=== PATIENT | male | born 1970 | race Caucasian/White ===

== ENCOUNTER 2018-10-17 22:21 | Emergency (ER) | payer BC, OTHER ==
[~2018-10-17] VITALS: Ht 172.7 cm; Wt 115.2 kg
[~2018-10-17 22:21] MED LIST: LEVOTHYROXINE PO; PRED20TA PO
[2018-10-17 22:25] VITALS: BP_SYST 149
--- NOTE | 2018-10-17 22:32 | NUR ---
Patient triaged and placed in waiting room. VSS and patient appears in no acute distress at this time. Accompanied by visitor, awaiting available bed, and MD notified of need for MSE.
[2018-10-17 23:05] LABS: BASOPHILS # (AUTO) 0.1 K/uL (0.0-0.2); BASOPHILS % (AUTO) 0.5 % (0.0-2.0); EOSINOPHILS # (AUTO) 2.2 K/uL (0.0-0.4); EOSINOPHILS % (AUTO) 18.1 % (0.0-4.0); LYMPHOCYTES # (AUTO) 2.9 K/uL (1.0-5.5); MEAN CORPUSCULAR HEMOGLOBIN 30 pg (27-31); MEAN CORPUSCULAR HGB CONC 33 % (32-36); MEAN CORPUSCULAR VOLUME 90 fL (79.0-98.0); MONOCYTES # (AUTO) 0.7 K/uL (0.0-1.0); MONOCYTES % (AUTO) 5.7 % (1.7-9.3); NEUTROPHILS # (AUTO) 6.2 K/uL (1.8-7.7); NEUTROPHILS % (AUTO) 51.7 % (40.0-70.0); PLATELET COUNT (AUTO) 205 K/uL (130-430); RED BLOOD CELL COUNT(AUTO) 5.32 MIL/uL (4.2-6.2); RED CELL DISTRIBUTION WIDTH 15.8 % (9.0-15.0); WHITE BLOOD COUNT (AUTO) 11.9 K/uL (4.8-10.8)
[2018-10-17 23:19] LABS: CALCIUM 8.7 mg/dL (8.4-11.0); CREATININE 1.1 mg/dL (0.55-1.30)
[2018-10-17 23:24] LABS: ALBUMIN 3.2 g/dL (3.4-4.8); TOTAL BILIRUBIN 0.8 mg/dL (0.0-1.0)
--- NOTE | 2018-10-18 00:44 | NUR ---
Patient to ER bed 6 to gown for evaluation. Side rails up. Report given to juvenal mcdonald.
--- NOTE | 2018-10-18 00:54 | NUR ---
Pt complains of epigastric pain and bloating since Monday. Pt states he was seen at [facility] on Monday and had a CT with iodine and it came out negative. Yesterday pt was seen at another ER and ultrasound was done. Per , PCP stated patient had "gallstones and fatty liver." Pt feels bloated and had diarrhea today that "looked like jose." Per pt, last regular bowel movement was on . Pt states he had a fever yesterday. No other injuries/complaints per patient or noted.
--- NOTE | 2018-10-18 01:05 | NUR ---
Janet Mitchell at bedside examining patient.
[2018-10-18 01:28] LABS: BILIRUBIN,URINE NEGATIVE (NEGATIVE); BLOOD, URINE NEGATIVE (NEGATIVE); CLARITY/URINE CLEAR (CLEAR); COLOR,URINE YELLOW (YELLOW); GLUCOSE,URINE NEGATIVE (NEGATIVE); KETONES,URINE 1+ (NEGATIVE); LEUKOCYTE ESTERASE ,URINE NEGATIVE (NEGATIVE); NITRITE, URINE NEGATIVE (NEGATIVE); PH,URINE 5.5 (5.0-8.0); PROTEIN URINE NEGATIVE (NEGATIVE)
--- NOTE | 2018-10-18 01:28 | NUR ---
medications were given, pt tolerated well. No adverse reaction, will continue to monitor.
[2018-10-18] MEDS ORDERED: LACTULOSE 20 GM/30 ML UDC PO ONE (01:30)
[2018-10-18] MEDS ORDERED: SIMETHICONE 80 MG TAB.CHEW PO ONE (01:30)
[2018-10-18 02:26] VITALS: BP_SYST 132
--- NOTE | 2018-10-18 02:26 | NUR ---
Patient given written and verbal discharge instructions and verbalizes understanding. ER MD discussed with patient the results and treatment provided. Patient in stable condition. ID arm band removed. Rx of Lactulose and Simethicone given. Patient educated on pain management and to follow up with PMD. Pain Scale 0. Opportunity for questions provided and answered. Medication side effect fact sheet provided.
== END 2018-10-18 02:26 | disposition home or self-care (01) ==
LOC: SED 22:21
DX: K59.00 Constipation, unspecified (principal); R14.3 Flatulence; Z79.899 Other long term (current) drug therapy
CPT/HCPCS: 36415; 74018; 80053; 81003; 83690-TC; 85025; 99284

== ENCOUNTER 2018-10-21 02:22 | Inpatient (IN) | payer OTHER ==
[~2018-10-21] VITALS: Ht 172.7 cm; Wt 115.7 kg
[2018-10-21] VITALS (7 sets, daily range): BP systolic 110–132
--- NOTE | 2018-10-21 02:30 | NUR ---
Patient to ER bed 02 to gown for evaluation. Side rails up. Report given to AFSHIN Adan.
--- NOTE | 2018-10-21 02:48 | NUR ---
ER MD Holman at bedside for medical evaluation.
[2018-10-21] MEDS ORDERED: MORPHINE 4 MG/ML INJ. SYRINGE IVP ONE (03:00)
[2018-10-21] MEDS ORDERED: ONDANSETRON HCL 4 MG/2 ML VIAL IVP ONE (03:00)
[2018-10-21] MEDS ORDERED: NACL 0.9% 1,000 ML IV ONE (03:00)
--- NOTE | 2018-10-21 03:00 | NUR ---
Pt came to the ED for ABD pain for 1 week. Reports he has gas, constipation and nausea. He was seen and 2 other hospitals in addition to this ER earlier this week however, has not had any relief. Reported he had CT ABD/pelvis which was unremarkable. Ultrasound revealed gallstones. Denies SOB or chest pain. Denies v/d or fever. No other complaints/injuries noted. Will cont. to monitor.
[2018-10-21 03:12] LABS: BASOPHILS # (AUTO) 0.1 K/uL (0.0-0.2); BASOPHILS % (AUTO) 0.7 % (0.0-2.0); EOSINOPHILS % (AUTO) 33.7 % (0.0-4.0); HEMATOCRIT 49.1 % (36-54); HEMOGLOBIN 16.5 g/dL (14.0-18.0); LYMPHOCYTES # (AUTO) 3.1 K/uL (1.0-5.5); LYMPHOCYTES % (AUTO) 20.8 % (20.5-51.5); MEAN CORPUSCULAR HEMOGLOBIN 30 pg (27-31); MEAN CORPUSCULAR HGB CONC 34 % (32-36); MEAN CORPUSCULAR VOLUME 90 fL (79.0-98.0); MONOCYTES # (AUTO) 0.7 K/uL (0.0-1.0); MONOCYTES % (AUTO) 4.9 % (1.7-9.3); NEUTROPHILS # (AUTO) 5.9 K/uL (1.8-7.7); NEUTROPHILS % (AUTO) 39.9 % (40.0-70.0); PLATELET COUNT (AUTO) 221 K/uL (130-430); RED BLOOD CELL COUNT(AUTO) 5.44 MIL/uL (4.2-6.2); RED CELL DISTRIBUTION WIDTH 15.5 % (9.0-15.0); WHITE BLOOD COUNT (AUTO) 14.8 K/uL (4.8-10.8)
[2018-10-21 03:21] LABS: CALCIUM 8.5 mg/dL (8.4-11.0); CREATININE 1.2 mg/dL (0.55-1.30); POTASSIUM 3.8 mmol/L (3.5-5.1)
[2018-10-21 03:26] LABS: ALBUMIN 3.2 g/dL (3.4-4.8); TOTAL BILIRUBIN 0.9 mg/dL (0.0-1.0)
--- NOTE | 2018-10-21 04:25 | NUR ---
Pt resting comfortably in bed. Will cont. to monitor.
[2018-10-21] MEDS ORDERED: MAG HYDROX/AL HYDROX/SIMETH 30 ML, DICYCLOMINE HCL 20 MG, LIDOCAINE VISCOUS 2% 15ML (PO... PO ONE ×3 (04:30)
--- NOTE | 2018-10-21 04:45 | NUR ---
supervisor [employer] Luis Fernando made aware about ER HOLD.
[2018-10-21] MEDS ORDERED: DICYCLOMINE HCL 10 MG/5 ML SOLUTION ONE (04:58)
[2018-10-21] MEDS ORDERED: MAG-AL HYDROX/SIMETH 30 ML UDC ONE (04:58)
--- NOTE | 2018-10-21 05:00 | NUR ---
Patient will be admitted to care of Dr. Armando. Admitted to MS unit. Pt currently in ER due to hold. Belongings list completed. Summary report printed. Report will be given at bedside.
[2018-10-21] MEDS ORDERED: LIDOCAINE VISCOUS 2%, 15 ML UDC ONE (05:11)
[2018-10-21] MEDS ORDERED: MORPHINE 4 MG/ML INJ. SYRINGE IVP PRN (05:15)
[2018-10-21] MEDS ORDERED: LEVO25TA7 PO (05:24)
--- NOTE | 2018-10-21 05:24 | NUR ---
Admit order placed. However, pt currently on ER hold due to staffing.
--- NOTE | 2018-10-21 05:26 | NUR ---
Medication reconciliation completed with information provided by . Any prior medication reconciliation on file was reviewed and corrected.
--- NOTE | 2018-10-21 05:45 | NUR ---
Unable to scan NS 0.9 @ 100 mL/hour. Pt started on fluids per Dr. Armando's orders.
--- NOTE | 2018-10-21 06:13 | NUR ---
Pt resting comfortably in bed, no signs of acute distress. Will cont. to monitor
--- NOTE | 2018-10-21 06:33 | NUR ---
Angel abel in [facility] - 10/21/18 at 0634 by [email or web address] Call for MST for placement at 130
--- NOTE | 2018-10-21 06:34 | NUR ---
Call for MST for placement at 130
--- NOTE | 2018-10-21 06:42 | NUR ---
ADMISSION NOTE Received patient from ER via ayleen, received report from TIMI PEPE. Patient admitted with diagnosis of ABDOMINAL PAIN. Patient oriented to hospital routine, call light, toileting and safety-patient verbalized understanding.
--- NOTE | 2018-10-21 06:42 | NUR ---
Transfer to [place]. Licensed nurse present. IV present no signs or symptoms of infiltration.
--- NOTE | 2018-10-21 07:56 | NUR ---
opening Note Patient arrived from the ER with c/o abd pain and pressure. Patient is awake and oriented x 4. IV is on the LAC 18g running NS@100. Patient will remain NPO for now. Call light is within reach and bed is in the lowest position. Will continue to monitor.
--- NOTE | 2018-10-21 08:34 | NUR ---
MD Rounds Dr. Solis is examining the patient at the bedside.
[2018-10-21] MEDS: PANTOPRAZOLE SODIUM 40 MG/VIAL (PROTONIX) IVP SCH (08:43)
[2018-10-21] MEDS: ONDANSETRON HCL 4 MG/2 ML VIAL IVP PRN ×2 (08:43→21:34)
[2018-10-21] MEDS: NACL 0.9% 1,000 ML IV SCH ×3 (08:46→21:32)
--- NOTE | 2018-10-21 10:20 | NUR ---
MD Rounds Dr. Armando is examining the patient at the bedside.
--- NOTE | 2018-10-21 10:48 | NUR ---
RN Note Patient is having and Abd us at the bedside.
[2018-10-21 11:12] LABS: BILIRUBIN,URINE NEGATIVE (NEGATIVE); BLOOD, URINE NEGATIVE (NEGATIVE); CLARITY/URINE CLEAR (CLEAR); COLOR,URINE YELLOW (YELLOW); GLUCOSE,URINE NEGATIVE (NEGATIVE); KETONES,URINE NEGATIVE (NEGATIVE); LEUKOCYTE ESTERASE ,URINE NEGATIVE (NEGATIVE); NITRITE, URINE NEGATIVE (NEGATIVE); PROTEIN URINE NEGATIVE (NEGATIVE); UROBILINOGEN,URINE 0.2 (0.2-1.0)
[2018-10-21 11:14] LABS: BARBITURATE, URINE NEGATIVE (NEG <=200); BENZODIAZEPINE, URINE NEGATIVE (NEG <=150); CANNABINOID, URINE NEGATIVE (NEG <=50); COCAINE, URINE NEGATIVE (NEG <=150); METHAMPHETAMINES SCREEN,URINE NEGATIVE (NEG <=500); OPIATE, URINE POSITIVE (NEG <=100); PHENCYCLIDINE SCREEN,URINE NEGATIVE (NEG <=25); UR TRICYCLIC ANTIDEPRESSANTS NEGATIVE (NEG <=300); URINE AMPHETAMINE NEGATIVE (NEG <=500); URINE METHADONE NEGATIVE (NEG <=200); URINE OXYCODONE SCREEN NEGATIVE (NEG <=100); URINE PROPOXYPHENE SCREEN NEGATIVE (NEG <=300)
[2018-10-21] MEDS ORDERED: BELLADONNA ALKALOIDS/PHENOBARB 16.2 MG TABLET PO PRN (11:15)
--- NOTE | 2018-10-21 11:23 | NUR ---
GI consult called: for Dr. Solis, regarding ch abdominal pain, ordered by Dr. Armando.
[2018-10-21] MEDS ORDERED: AMPICILLIN SODIUM/SULBACTAM NA 3 GM in NS 100 ML IV SCH (12:00)
--- NOTE | 2018-10-21 12:49 | NUR ---
Rn Note Patient is off the unit going to Nuc Med.
[2018-10-21] MEDS: metroNIDAZOLE 500 mg/NS 100 ML IV SCH ×2 (14:37→21:33)
--- NOTE | 2018-10-21 14:50 | NUR ---
RN Note Patient returned from Nuc Med. CT abd/pelvis/chest are pending.
[2018-10-21] MEDS ORDERED: DIATR MEGLU/DIATRIZ SOD 30 ML SOLUTION PO ONE (15:27)
[2018-10-21] MEDS: LEVOFLOXACIN 500 MG/D5W 100 ML IV SCH (15:40)
--- NOTE | 2018-10-21 16:33 | NUR ---
rounds Patient is sleeping in bed.
[2018-10-21] MEDS ORDERED: IOHEXOL 100 ML IV ONE (17:03)
[2018-10-21] MEDS: DICYCLOMINE HCL 10 MG CAPSULE PO PRN ×2 (17:46→22:12)
--- NOTE | 2018-10-21 18:29 | NUR ---
Closing Note Patient is currently resting in bed. Patient had US abd, Ct abd/chest, and HIDA scan. Results are still pending. IV is on the LAC 18g running NS@100. Patient tolerated his clear liquids diet well. Call light is within reach and bed is in the lowest position. Will endorse care to the oncoming nurse.
--- NOTE | 2018-10-21 19:15 | NUR ---
change of shift.pt.presents quiescent affect;calm,resting.pt.had submitted to studies x4;10/21/28.pt.presents tired;exhausted status.general status stable.respiratory status stable@room air.iv fluids infusing.call light/telephone w/in the reach of the pt.
--- NOTE | 2018-10-21 20:00 | NUR ---
pt.assessed.v/s assessed;values w/in normal limits.pt.had stated he presents pain.pt.had received the administration of morphine: 2mg ivp w/in the day shift.pt.stated the morphine caused nausea.to f/u w/pt had stated he presents nausea.i am to review the [id number];medication;nausea.i have apprised the pt.that snacks/beverages are available w/in the shift.w/in the diet status;clear liquids parameters.no requests posited@this hour.pt.capable to reposition self.general status stable.respiratory status stable@room air;unlabored.call light/telephone placed w/in the reach of the pt.
--- NOTE | 2018-10-21 20:30 | NUR ---
had been paged.awaiting return call.
--- NOTE | 2018-10-21 21:00 | NUR ---
;rafaela paged.awaiting return call.
--- NOTE | 2018-10-21 21:30 | NUR ---
;m has yet to return the page.i have administered prednisone;20mg po;i have provided the indication;medication.i have administered.zofran:4mg;nausea ivp.i have changed the iv fluids bag,i have administered flagyl;abx;ivpb:2200p dose.
[2018-10-21] MEDS: PREDNISONE 20 MG TABLET PO SCH (21:33)
--- NOTE | 2018-10-21 22:00 | NUR ---
pt.assessed.pt.presents quiescent affect;calm,resting.i have apprised the pt.that has return the page and the medications ordered per the pt's presentation.pt.had presented gas pain/discomfort;simethicone;80 mg po tid,sleep;restoril;15mg po q-h/p:pt.had stated his reaction to the morphine.;m did not provide an alternative pain medication.
[2018-10-21] MEDS: TEMAZEPAM 15 MG CAPSULE PO PRN (22:10)
[2018-10-21] MEDS: ACETAMINOPHEN 325 MG TABLET PO PRN (22:12)
[2018-10-21] MEDS ORDERED: SIMETHICONE 80 MG TAB.CHEW PO SCH (22:15)
--- NOTE | 2018-10-21 22:15 | NUR ---
i have administered tylenol:650mg po;abdomen pain.i have administered restoril;15mg po;sleep,i have administered simethicone;80mg po abdomen;gas pain/discomfort.to f/u re;medications efficacy.
[2018-10-22] VITALS: BP_SYST 104
--- NOTE | 2018-10-22 | NUR ---
pt.assessed.v/s assessed;values w/in normal limits.mathew;toribio apprised me of the b/p values;which present low values; w/in normal limits.pt.presents quiescent affect;calm,somnolent.iv access assessed;intact;patent;iv fluids infusing. general status stable.respiratory status stable;unlabored.pt.capable to reposition self.call light/telephone placed w/in the reach of the pt.
--- NOTE | 2018-10-22 02:00 | NUR ---
pt.assessed.pt.presents quiescent affect;calm,somnolent.general status stable.respiratory status stable.unlabored.iv access ;assessed;intact;patent;iv;fluids infusing.pt.capable to reposition self.call light/telephone placed w/in the reach of the pt.
--- NOTE | 2018-10-22 04:00 | NUR ---
pt.assessed.pt.presents quiescent affect;calm,somnolent.iv access;intact;patent;iv f;ids infusing. general status stable.respiratory status stable;unlabored.pt.capable to reposition self.call light/ telephone w/in the reach of the pt.
[2018-10-22] MEDS: LEVOTHYROXINE SODIUM 0.1 MG TABLET PO SCH (06:21)
[2018-10-22] MEDS: DICYCLOMINE HCL 10 MG CAPSULE PO PRN ×3 (06:25→21:18)
[2018-10-22] MEDS: ACETAMINOPHEN 325 MG TABLET PO PRN ×3 (06:26→21:19)
[2018-10-22] MEDS: metroNIDAZOLE 500 mg/NS 100 ML IV SCH ×3 (06:30→21:17)
--- NOTE | 2018-10-22 06:30 | NUR ---
pt.assessed.pt.presents quiescent affect;calm.i have administered;flagyl;abx;ivpb:600a dose.i have administered synthroid:0700a dose.pt.had state the tylenol/bentyl po had been effective to for pain mgx.i have administered;tylenol;650 mg po/bentyl;10mg po;pain mgx:to f/u re;pain medication efficacy per pain mgx protocol.general status stable.respiratory status stable.call light/telephone w/in the reach of the pt.
--- NOTE | 2018-10-22 07:25 | NUR ---
OPENING NOTE Patient resting in the bed. No acute distress. AAO x 4. Skin warm and dry to touch. IV intact to LAC, no redness, no swelling, no drainage. On NS at 100ml/hr, infusing well. Discussed the safety issue, use call light when need help, and plan of care, verbally understanding. Safety measure maintained. Bed locked in low position, side rails up, refused bed alarm, risk and benefit explained, verbally understanding. Call light within reached. Will continue to monitor.
[2018-10-22 07:50] VITALS: BP_SYST 111
[2018-10-22 08:37] LABS: BASOPHILS # (AUTO) 0.1 K/uL (0.0-0.2); BASOPHILS % (AUTO) 1.1 % (0.0-2.0); EOSINOPHILS # (AUTO) 1.6 K/uL (0.0-0.4); EOSINOPHILS % (AUTO) 16.5 % (0.0-4.0); HEMATOCRIT 44.5 % (36-54); HEMOGLOBIN 15.2 g/dL (14.0-18.0); LYMPHOCYTES # (AUTO) 1.5 K/uL (1.0-5.5); LYMPHOCYTES % (AUTO) 15.9 % (20.5-51.5); MEAN CORPUSCULAR HEMOGLOBIN 31 pg (27-31); MEAN CORPUSCULAR HGB CONC 34 % (32-36); MEAN CORPUSCULAR VOLUME 90 fL (79.0-98.0); MONOCYTES # (AUTO) 0.4 K/uL (0.0-1.0); MONOCYTES % (AUTO) 4.1 % (1.7-9.3); NEUTROPHILS # (AUTO) 5.9 K/uL (1.8-7.7); NEUTROPHILS % (AUTO) 62.4 % (40.0-70.0); PLATELET COUNT (AUTO) 198 K/uL (130-430); RED BLOOD CELL COUNT(AUTO) 4.93 MIL/uL (4.2-6.2); RED CELL DISTRIBUTION WIDTH 16.1 % (9.0-15.0); WHITE BLOOD COUNT (AUTO) 9.5 K/uL (4.8-10.8)
[2018-10-22] MEDS: PREDNISONE 20 MG TABLET PO SCH ×2 (08:54→21:17)
[2018-10-22] MEDS: PANTOPRAZOLE SODIUM 40 MG/VIAL (PROTONIX) IVP SCH (08:54)
[2018-10-22] MEDS: SIMETHICONE 80 MG TAB.CHEW PO SCH ×3 (08:55→21:17)
--- NOTE | 2018-10-22 08:55 | NUR ---
SCHEDULE MED GIVEN
[2018-10-22 09:04] LABS: INR 1.2 (0.80-1.20); PROTHROMBIN TIME 12.4 SECS (9.5-12.5)
[2018-10-22 09:07] LABS: ALBUMIN 2.7 g/dL (3.4-4.8); CALCIUM 8.1 mg/dL (8.4-11.0); CREATININE 1.16 mg/dL (0.55-1.30); POTASSIUM 4.4 mmol/L (3.5-5.1); TOTAL BILIRUBIN 0.7 mg/dL (0.0-1.0)
--- NOTE | 2018-10-22 09:55 | NUR ---
Nutrition Update Efrain Scale 18 noted. Pt admitted for abd pain. Diet: clear liquid BMI: 38.8 kg/m2 RD to follow per nutrition care standards.
--- NOTE | 2018-10-22 10:45 | NUR ---
SEEN AND EXAMINED BY MARILYN ROSS, REQUESTED TO OBTAIN ALL GI RECORD FROM DR. NAVARRO.
[2018-10-22 12:39] VITALS: BP_SYST 144
[2018-10-22] MEDS: LEVOFLOXACIN 500 MG/D5W 100 ML IV SCH (12:40)
[2018-10-22] MEDS: NACL 0.9% 1,000 ML IV SCH ×2 (12:50→21:15)
--- NOTE | 2018-10-22 12:58 | NUR ---
TYLENOL GIVEN Patient c/o abdomen pain 06/24, Tylenol 650mg PO given as ordered. No acute distress. IV intact, IVF infusing well. Safety measure maintained. Call light within reached. Bed locked in low position, side rails up. Continue to monitor.
--- NOTE | 2018-10-22 14:00 | NUR ---
FAMILY VISIT Patient resting in the bed and talked to family at bedside. No acute distress. Safety measure maintained. Call light within reached. Continue to monitor.
--- NOTE | 2018-10-22 15:01 | NUR ---
Dietitian Recommendations * Recommend continuing clear liquid diet (ONS Ensure Clear TID comes standard w/ clear liquid diet; provides 720 kcal/day, 24 gm protein/day) LP, RD Please refer to Nutrition Assessment for details. Addendum: 10/22/18 at [address] Amended: Links added.
[2018-10-22 16:48] VITALS: BP_SYST 137
--- NOTE | 2018-10-22 17:25 | NUR ---
ROUND Patient resting in the bed. No acute distress. IV intact, IVF infusing well. Safety measure maintained. Call light within reached. Continue to monitor.
--- NOTE | 2018-10-22 18:59 | NUR ---
CLOSING NOTE Patient resting in the bed. No acute distress. AAO x 4. Pain med given as needed. Skin warm and dry to touch. IV intact to LAC, no redness, no swelling, no drainage. On NS at 100ml/hr, infusing well. All needs met and attended. Safety measure maintained. Bed locked in low position, side rails up, refused bed alarm, risk and benefit explained, verbally understanding. Call light within reached. Will endorse to night nurse.
[2018-10-22 19:00] VITALS: BP_SYST 135
--- NOTE | 2018-10-22 19:15 | NUR ---
change of shift.pt.presents quiescent affect;calm,resting,viewing tv programming.general status stable.respiratory status stable@room air.iv fluids infusing.pt.capable to reposition self.call light/telephone w/in the reach of the pt.
[2018-10-22 20:00] VITALS: BP_SYST 135
--- NOTE | 2018-10-22 20:00 | NUR ---
pt.assessed.v/s assessed.values w/in normal limits.i have apprised the pt that snacks/beverages are available w/in the shift. pt.had requested tea.i have provided the tea.no c/o pain,nausea.iv access assessed;intact;patent.iv fluids infusing.general status stable.respiratory status stable@room air;unlabored.pt.capable to reposition self.call light/telephone w/in the reach of the pt.
--- NOTE | 2018-10-22 21:00 | NUR ---
2100p medication administered.pt.had requested tylenol;650 mg po/bentyl;10mg po;abdomen discomfort.simethicone;80mg po is scheduled for 2100p.administered;to f/u re;medication efficacy per pain mgx protocol.no additional requests@this hour.
[2018-10-22] MEDS: TEMAZEPAM 15 MG CAPSULE PO PRN (21:18)
--- NOTE | 2018-10-22 22:00 | NUR ---
pt.assessed.pt.presents quiescent affect;calm,resting viewing tv programming.no c/o pain,nausea.no requests posited @this hour. iv access;intact;patent iv fluids infusing.general statu stable.respiratory status stable.pt.capable to reposition self.call light/telephone w/in the reach of the pt.
[2018-10-23] VITALS: BP_SYST 140
--- NOTE | 2018-10-23 | NUR ---
pt.assessed.v/s assessed:values w/in normal limits.no c/o pain,nausea.no requests posited @this hour. iv access;intact;patent.iv fluids infusing.general status stable.respiratory status stable.pt.capable to reposition self.call,light/telephone w/in the reach of the pt.
--- NOTE | 2018-10-23 01:00 | NUR ---
pt.had requested snacks.pt.had requested tea/consumme.i have provided the snacks.pt.presents stable status; general/respiratory.
--- NOTE | 2018-10-23 02:00 | NUR ---
pt.assessed.pt.presents quiescent affect;calm.pt.awake viewing programming via phone.no requests posited @this hour. pt.stated he presents abdomen discomfort:lt.flank;i have apprised the pt.that tylenol/bentyl may be administered@0300a. pt.stated he will wait until 0300a for the medications.call light/telephone w/in reach of the pt
--- NOTE | 2018-10-23 02:15 | NUR ---
pt.is ambulating out of the room;w/in the unit.gait steady.
--- NOTE | 2018-10-23 03:00 | NUR ---
i returned to the pt's room to inquire if the pt wish to receive the administration:tylenol/bentyl:due@this hour.pt.presented quiescent affect;somnolent.did not disturb the pt.will assess the pt.
--- NOTE | 2018-10-23 04:00 | NUR ---
pt.assessed.pt.presents quiescent affect;calm,somnolent.iv access;assessed;intact;patent;iv fluids infusing. general status stsble.respiratory status stable;unlabored.pt.capable to reposition self.call light/telephone w/in the reach of the pt.
[2018-10-23] MEDS: metroNIDAZOLE 500 mg/NS 100 ML IV SCH ×3 (05:48→21:09)
[2018-10-23] MEDS: NACL 0.9% 1,000 ML IV SCH ×3 (05:49→21:09)
[2018-10-23] MEDS: LEVOTHYROXINE SODIUM 0.1 MG TABLET PO SCH (05:56)
--- NOTE | 2018-10-23 06:35 | NUR ---
pt.assessed.pt.presents quiescent affect;calm;resting.i have changed the iv fluids bag.i have administered flagyl;abx;ivpb:0600a dose.i have administered synthroid;0700a dose.no c/o pain,nausea.iv access;intact;iv fluids infusing.pt.capable to reposition self. call light/telephone w/in the reach of the pt.
[2018-10-23 07:51] VITALS: BP_SYST 134
--- NOTE | 2018-10-23 08:00 | NUR ---
Note Pt awake resting in bed - instructed that breakfast tray on bedside table. No SOB/resp distress or pain/discomfort noted at this time. IV in left AC intact and and patent infusing IVF's well at this time. No needs noted at this time. Call light within reach.
[2018-10-23 08:07] LABS: HEPATITIS A AB, IgM Negative (Negative); HEPATITIS B CORE AB, IgM Negative (Negative); HEPATITIS B SURFACE AG Negative (Negative)
[2018-10-23] MEDS: PANTOPRAZOLE SODIUM 40 MG/VIAL (PROTONIX) IVP SCH (09:04)
[2018-10-23] MEDS: PREDNISONE 20 MG TABLET PO SCH ×2 (09:04→21:09)
[2018-10-23] MEDS: SIMETHICONE 80 MG TAB.CHEW PO SCH ×3 (09:04→21:09)
--- NOTE | 2018-10-23 10:34 | NUR ---
Note Pt sitting up bed finishing his breakfast. Pt has been ambulating to restroom with steady gait at this time. No needs noted at this time. Pt was given Z-guard for sore skin at buttock region. Call light within reach.
[2018-10-23] MEDS: LEVOFLOXACIN 500 MG/D5W 100 ML IV SCH (10:57)
[2018-10-23 12:10] LABS: FERRITIN 65 ng/mL (30-400)
--- NOTE | 2018-10-23 12:25 | NUR ---
Note Pt has been ambulating in hallway and room with IV pole with steady gait. Pt denies any SOB or resp distress or pain at this time. Pt sitting up in bed watching television with IVF's infusing well through left IV AC site. No needs noted at this time. Call light within reach.
[2018-10-23 12:43] VITALS: BP_SYST 143
--- NOTE | 2018-10-23 14:55 | NUR ---
Note Pt sitting up in bed talking on his cellphone with family and friends at this time. No needs noted. Pt's IVF's infusing well through left forearm IV site. Call light within reach. Pt able to pass flatus and burp when ambulating - pt feels very bloated and full of gas. Pt does receive Mylicon PO TID.
[2018-10-23 16:43] VITALS: BP_SYST 150
--- NOTE | 2018-10-23 17:10 | NUR ---
Note Dr Solis on the floor and assessed pt at bedside at this time. Questions/concerns were answered at this time. Pt has 2-3 family members in the room at this time, have been at bedside for 2-3 hours. No needs noted at this time. Call light within reach.
[2018-10-23 17:21] LABS: ANTI NUCLEAR AB WITH REFLEX Negative (Negative)
[2018-10-23] MEDS ORDERED: GOLYTELY / COLYTE SOLUTION 4 LITERS PO ONE (18:00)
--- NOTE | 2018-10-23 18:25 | NUR ---
Note Pt sitting up in bed talking on the phone with friends and family. Pt's at bedside at this time. No SOB/resp distress or pain/discomfort noted at this time. Pt was checked on q1' and PRN all shift for needs and care. IV in left AC intact and patent infusing IVF's well. No needs noted at this time. Pt was instructed to drink the Gallon of Golytely at bedside table - one cup q15' till Gallon is finished. Pt verbalizes understanding. Call light within reach.
--- NOTE | 2018-10-23 19:44 | NUR ---
Initial note: Received report from dayshift RN. Patient is walking around in room. Alert and oriented x4. Tolerating room air. IV fluids infusing to left AC IV site. Patient is aware of colonoscopy and EGD tomorrow morning, consent forms were signed during dayshift. Patient aware of and understands NPO status after 12AM. Patient is in the process of consuming Golytely for colonoscopy, approximately 3L remains. Instructed patient to drink 1 cup every 15 minutes so as to finish the remaining Golytely before 12AM. Patient verbalized understanding. Call light with patient. Will continue with plan of care.
[2018-10-23 20:30] VITALS: BP_SYST 147
--- NOTE | 2018-10-23 21:13 | NUR ---
Rounds: Patient is awake, talking on cellphone. No acute distress. Tolerating room air. Approximately 2L of Golytely remains. Call light with patient. Will continue to monitor.
--- NOTE | 2018-10-24 | NUR ---
NPO: Patient completed consuming the ordered 4L of Golytely. NPO status now in place for patient. Patient verbalized understanding regarding NPO status. Call light with patient. Safety, fall precautions in place. Will continue monitoring.
[2018-10-24 00:16] VITALS: BP_SYST 159
--- NOTE | 2018-10-24 03:12 | NUR ---
Rounds: Patient is resting in bed, no distress noted. IV fluids infusing well to left AC IV site. Call light with patient. Will continue monitoring.
[2018-10-24 05:43] LABS: INR 1.2 (0.80-1.20); PROTHROMBIN TIME 12.7 SECS (9.5-12.5)
--- NOTE | 2018-10-24 05:46 | NUR ---
Tap water enema: Patient was educated regarding tap water enema indications and procedure. Questions and concerns addressed. Administered tap water enema until clear as ordered. Patient tolerated well.
[2018-10-24] MEDS: NACL 0.9% 1,000 ML IV SCH ×2 (05:55→20:20)
[2018-10-24] MEDS: metroNIDAZOLE 500 mg/NS 100 ML IV SCH ×3 (05:55→20:19)
[2018-10-24 06:05] LABS: BASOPHILS % (AUTO) 0.2 % (0.0-2.0); EOSINOPHILS # (AUTO) 0.1 K/uL (0.0-0.4); EOSINOPHILS % (AUTO) 0.7 % (0.0-4.0); HEMATOCRIT 43.9 % (36-54); HEMOGLOBIN 14.7 g/dL (14.0-18.0); LYMPHOCYTES # (AUTO) 1.3 K/uL (1.0-5.5); LYMPHOCYTES % (AUTO) 14.3 % (20.5-51.5); MEAN CORPUSCULAR HEMOGLOBIN 30 pg (27-31); MEAN CORPUSCULAR HGB CONC 34 % (32-36); MEAN CORPUSCULAR VOLUME 91 fL (79.0-98.0); MONOCYTES # (AUTO) 0.5 K/uL (0.0-1.0); MONOCYTES % (AUTO) 5.1 % (1.7-9.3); NEUTROPHILS # (AUTO) 7.4 K/uL (1.8-7.7); NEUTROPHILS % (AUTO) 79.7 % (40.0-70.0); PLATELET COUNT (AUTO) 205 K/uL (130-430); RED BLOOD CELL COUNT(AUTO) 4.83 MIL/uL (4.2-6.2); RED CELL DISTRIBUTION WIDTH 16.3 % (9.0-15.0); WHITE BLOOD COUNT (AUTO) 9.3 K/uL (4.8-10.8)
--- NOTE | 2018-10-24 06:18 | NUR ---
Closing note: Patient is resting in bed, no distress. Even and unlabored breathing on room air. IV fluids infusing well to left AC IV site. No complaints of pain, SOB, or dizziness. All needs met. Safety, fall precautions in place. Will endorse to daysfacundo RN.
[2018-10-24] MEDS: LEVOTHYROXINE SODIUM 0.1 MG TABLET PO SCH (06:32)
--- NOTE | 2018-10-24 07:15 | NUR ---
received report at the bedside. patient aaox 4. breathing even and unlabored. no pain nor acute distress noted. has iv access on the left ac #20 with Normal Saline at 100cc/hr infusing on well. bed in low position. very sleepy. call lights within reach. instructed to call for assistance. bed in low position. alarmed and locked.
[2018-10-24 07:20] LABS: CALCIUM 8.7 mg/dL (8.4-11.0); CREATININE 0.89 mg/dL (0.55-1.30); POTASSIUM 3.8 mmol/L (3.5-5.1)
[2018-10-24 08:24] VITALS: BP_SYST 100
--- NOTE | 2018-10-24 08:30 | NUR ---
called gi lab for the procedure. no call back.
[2018-10-24] MEDS: PANTOPRAZOLE SODIUM 40 MG/VIAL (PROTONIX) IVP SCH (09:19)
--- NOTE | 2018-10-24 09:22 | NUR ---
protonix 40 mg iv given. still on npo status for colonoscopy and egd procedure.
--- NOTE | 2018-10-24 11:20 | NUR ---
called again gi lab. and went their. and nobody in the gi lab.
--- NOTE | 2018-10-24 11:25 | NUR ---
informed Miranda Girard nursing geophysical laboratory supervisor, she said will do the procedure in the afternoon at 300pm with Dr Solis.
[2018-10-24 12:00] VITALS: BP_SYST 115
[2018-10-24] MEDS: LEVOFLOXACIN 500 MG/D5W 100 ML IV SCH (12:06)
[2018-10-24] MEDS: SIMETHICONE 80 MG TAB.CHEW PO SCH ×3 (12:14→20:19)
--- NOTE | 2018-10-24 14:00 | NUR ---
STILL ON NPO STATUS.
[2018-10-24 14:13] LABS: ATYPICAL pANCA <1:20 titer (Neg:<1:20); CYTOPLASMIC (C-ANCA) <1:20 titer (Neg:<1:20); CYTOPLASMIC (P-ANCA) <1:20 titer (Neg:<1:20)
[2018-10-24] MEDS ORDERED: SIMETHICONE 40 MG/0.6 ML ML ONE (14:28)
[2018-10-24] MEDS ORDERED: MIDAZOLAM HCL 5 MG/5 ML VIAL ONE ×2 (14:29→17:30)
[2018-10-24] MEDS ORDERED: MEPERIDINE HCL/PF 100 MG/ML AMP ONE (14:29)
[2018-10-24] MEDS ORDERED: DIPHENHYDRAMINE INJ 50 MG/ML VIAL ONE (14:29)
--- NOTE | 2018-10-24 15:25 | NUR ---
PATIENT LEFT FOR THE PROCEDURE WITH DR LOW.
--- NOTE | 2018-10-24 16:23 | NUR ---
STILL ON COLONOSCOPY AND EGD PROCEDURE.
[2018-10-24] MEDS ORDERED: BISACODYL 5 MG TABLET.DR (DULCOLAX) PO ONE (17:00)
[2018-10-24] MEDS ORDERED: MEPERIDINE HCL/PF 50 MG/ML AMP ONE (17:30)
--- NOTE | 2018-10-24 17:30 | NUR ---
PATIENT WILL BE BACK SOON FROM GI LAB. IN STABLE CONDITION.
[2018-10-24] MEDS: PREDNISONE 20 MG TABLET PO SCH ×2 (17:40→20:19)
[2018-10-24] MEDS: DICYCLOMINE HCL 10 MG CAPSULE PO PRN (17:40)
--- NOTE | 2018-10-24 17:40 | NUR ---
PATIENT GOT BACK FROM GI LAB AT THIS TIME.
--- NOTE | 2018-10-24 17:45 | NUR ---
VITALS SIGNS STABLE. AFEBRILE. FOOD FOR DINNER AT THE TABLE. FAMILY AT THE BEDSIDE.
--- NOTE | 2018-10-24 18:03 | NUR ---
DUE MEDICATION GIVEN ORDERED.
--- NOTE | 2018-10-24 18:54 | NUR ---
closing notes: patient are stable and happy. still slowly eating dinner with the family at the bedside. breathing even and unlabored. abdomen soft and non distended. voided to the bathroom assisted by the . all needs are met and attended. bed in low position, alarmed and locked. endorsed to incoming nurse.
[2018-10-24 19:30] VITALS: BP_SYST 111
--- NOTE | 2018-10-24 19:40 | NUR ---
Initial Note Received patient asleep but arousable. Awake, alert and oriented. NO SOB noted. Denies any pain or n/v at this time. VS taken post op and is stable. IVF infusing. Skin intact and no peripheral edema noted. Care and monitoring will be provided per protocol. Call light within reach. Bed alarm off per patient's request. Bed at lowest position at all times. Needs attended. Repositions self. Kept warm and comfortable.
[2018-10-24 19:45] VITALS: BP_SYST 120
--- NOTE | 2018-10-24 20:19 | NUR ---
RN Note Due meds given, tolerated well. Patient requested to have the IV antibiotic given as well so he can rest early. Request granted. No complaints at this time. Needs attended.
--- NOTE | 2018-10-24 21:20 | NUR ---
RN Note Patient ambulated to the bathroom and back to bed with steady gait and no SOB noted. VS taken again. No other complaints. Needs attended.
--- NOTE | 2018-10-24 22:30 | NUR ---
Shower Patient took a shower. Ambulates with steady gait. Needs attended.
[2018-10-25] VITALS: BP_SYST 155
--- NOTE | 2018-10-25 00:30 | NUR ---
RN Note Patient is hungry, given snacks and advised to eat slowly to prevent nausea or vomiting. Will monitor.
--- NOTE | 2018-10-25 01:30 | NUR ---
RN Note Patient is sleeping at this time. No SOB or grimacing noted. IVF infusing.
--- NOTE | 2018-10-25 03:30 | NUR ---
RN Note Asleep, moves occasionally. No distress noted. IVF infusing.
[2018-10-25] MEDS: metroNIDAZOLE 500 mg/NS 100 ML IV SCH ×3 (05:36→21:36)
[2018-10-25] MEDS: LEVOTHYROXINE SODIUM 0.1 MG TABLET PO SCH (05:36)
[2018-10-25 05:44] LABS: BASOPHILS % (AUTO) 0.3 % (0.0-2.0); EOSINOPHILS % (AUTO) 0.2 % (0.0-4.0); HEMATOCRIT 41.4 % (36-54); HEMOGLOBIN 13.8 g/dL (14.0-18.0); LYMPHOCYTES # (AUTO) 1.1 K/uL (1.0-5.5); MEAN CORPUSCULAR HEMOGLOBIN 31 pg (27-31); MEAN CORPUSCULAR HGB CONC 33 % (32-36); MEAN CORPUSCULAR VOLUME 92 fL (79.0-98.0); MONOCYTES # (AUTO) 0.3 K/uL (0.0-1.0); MONOCYTES % (AUTO) 3.2 % (1.7-9.3); NEUTROPHILS % (AUTO) 83.3 % (40.0-70.0); PLATELET COUNT (AUTO) 180 K/uL (130-430); RED BLOOD CELL COUNT(AUTO) 4.51 MIL/uL (4.2-6.2); RED CELL DISTRIBUTION WIDTH 16.4 % (9.0-15.0); WHITE BLOOD COUNT (AUTO) 8.4 K/uL (4.8-10.8)
[2018-10-25 05:58] LABS: CALCIUM 8.5 mg/dL (8.4-11.0); CREATININE 1.1 mg/dL (0.55-1.30); POTASSIUM 4.1 mmol/L (3.5-5.1)
--- NOTE | 2018-10-25 06:12 | NUR ---
End Note Afebrile. VS stable. No complain of pain, SOB or n/v throughout the night. Ambulates well with steady gait. Took a shower last night. IVF infusing. AM labs today. S/p EGD and colonoscopy yesterday. Tolerated regular diet. Care and monitoring provided per protocol. Call light within reach. Bed alarm off per patient's request. Bed at lowest position at all times. Needs attended. Kept warm and comfortable.
--- NOTE | 2018-10-25 07:15 | NUR ---
received report at the bedside. patient aaox 4. breathing even and unlabored. abdomen soft and non distended. verbalized had no bowel movement yet, but passing gas a lot. no pain nor acute distress noted. bed in low position, locked not alarmed, as per patient request. vital signs stable. afebrile. call lights within reach. instructed to call for assistance.
[2018-10-25 08:07] VITALS: BP_SYST 124
--- NOTE | 2018-10-25 08:09 | NUR ---
patient still very sleepy. will later in awhile.
--- NOTE | 2018-10-25 09:00 | NUR ---
DUE MEDICATION GIVEN. ASSISTS ON ADLS.
[2018-10-25] MEDS: SIMETHICONE 80 MG TAB.CHEW PO SCH ×3 (09:01→19:58)
[2018-10-25] MEDS: PANTOPRAZOLE SODIUM 40 MG/VIAL (PROTONIX) IVP SCH (09:01)
[2018-10-25] MEDS: PREDNISONE 20 MG TABLET PO SCH ×2 (09:01→19:58)
[2018-10-25] MEDS: NACL 0.9% 1,000 ML IV SCH ×2 (09:10→19:59)
[2018-10-25 10:07] LABS: ANTI-SMOOTH MUSCLE AB 5 Units (0-19)
--- NOTE | 2018-10-25 10:14 | NUR ---
RESTING AND WATCHING TV. NO PAIN NOR ACUTE DISTRESS NOTED.
[2018-10-25 11:25] VITALS: BP_SYST 127
--- NOTE | 2018-10-25 11:26 | NUR ---
patient walking in the hallway many times, verbalized very tired. still awaiting for to have a bowel movement.
[2018-10-25 12:15] LABS: CRYPTOCOCCUS AG, SERUM NEGATIVE (NEGATIVE)
--- NOTE | 2018-10-25 12:43 | NUR ---
patient had a visitor. said will eat lunch in a while.
[2018-10-25] MEDS: LEVOFLOXACIN 500 MG/D5W 100 ML IV SCH (13:21)
--- NOTE | 2018-10-25 13:21 | NUR ---
levaquin iv given
--- NOTE | 2018-10-25 14:38 | NUR ---
lars ha hanged at this time.
--- NOTE | 2018-10-25 15:00 | NUR ---
had another walk on the hallway for 3 times. no difficulty noted. stable. no sob nor pain
[2018-10-25 15:53] VITALS: BP_SYST 142
--- NOTE | 2018-10-25 16:22 | NUR ---
mylicon 80 mg tab given to the patient.
--- NOTE | 2018-10-25 16:34 | NUR ---
patient at the bedside. happy and contented. verbalized wants to walk more. no pain nor acute distress noted.
--- NOTE | 2018-10-25 16:44 | NUR ---
Nutrition F/U RD reviewed pt's current EMR record including diet Hx, physician notes, nursing notes, pertinent labs/meds/procedures, care trends, and care activity. Current Diet Order: regular x1 day Subjective Info: Pt seen resting in bed w/ two family members at bedside. Pt was concerned about loose stools since this morning. RD offered banana and Banatrol BID to help bulk stool -- pt accepted. Pt reported that he has been eating well, tolerating diet well. RD provided nutrition education on general healthy MNT. Please refer to interdisciplinary teaching record for details. Current % PO 79% average x5 meals -- good Estimated Energy Expenditure (kcals/day) 4878-2004 kcal/day (25-30 kcal/kg Adj IBW for maintenance) Estimated Protein Required (g/day) 65-81 gm/day (0.8-1 gm/kg Adj IBW for maintenance) Estimated Fluid Required (l/day) 3.5 L/day (30 ml/kg CBW for maintenance) Problem/Etiology/Signs/Symptoms Complicated GI function related to unknown etiology as evidenced by bloating w/ consumption of minimal liquid diet per pt report. *no longer applicable Expected Outcomes/Goals - Monitor advancement of diet, appetite, and PO intakes w/ goal of pt meeting at least 75% of estimated nutritional needs, labs trending WNL, normal GI function, and skin integrity/wt maintenance Dietitian Recommendations * Recommend continuing regular diet Follow Up Low Risk: F/U in 7 days Addendum: 10/25/18 at [address] CORRECTION: Dietitian Recommendations * Recommend regular diet, Banatrol BID LP, RD
--- NOTE | 2018-10-25 16:50 | NUR ---
Dietitian Recommendations * Recommend continuing regular diet LP, RD Please refer to Nutrition F/U for details. Addendum: 10/25/18 at [address] CORRECTION: Dietitian Recommendations * Recommend regular diet, Banatrol BID LP, RD Please refer to Nutrition F/U for details.
--- NOTE | 2018-10-25 17:00 | NUR ---
patient able to walked many times in the hallway, but no bowel movement yet. passing gas a lot.
--- NOTE | 2018-10-25 18:20 | NUR ---
patient eating dinner. family at the bedside. no pain nor acute distress noted. still with iv fluids infusing on well. bed in low position, refused to have bed alarmed but locked. call lights within reach. will continue to monitor patients status. endorsed to incoming nurse. please follow up for to have bowel movement, but no distention noted.
--- NOTE | 2018-10-25 19:20 | NUR ---
endorsed to incoming nurse Noa PEPE
--- NOTE | 2018-10-25 19:45 | NUR ---
Initial Note Received patient awake, alert and oriented. No SOB noted. Denies any pain or n/v at this time. VS taken and is stable. IVF infusing. Skin intact and no peripheral edema noted. Care and monitoring will be provided per protocol. Call light within reach. Bed alarm off per patient's request. Bed at lowest position at all times. Needs attended. Repositions self. Kept warm and comfortable.
[2018-10-25 20:00] VITALS: BP_SYST 139
--- NOTE | 2018-10-25 20:00 | NUR ---
RN Note Due meds given, tolerated well . Given sandwich and juice per patient's request. No other complaints. Needs attended. Kept warm.
--- NOTE | 2018-10-25 22:00 | NUR ---
RN Note Patient awake watching TV. He had visitor earlier. No complaints. Needs attended.
[2018-10-26 00:41] VITALS: BP_SYST 123
--- NOTE | 2018-10-26 01:00 | NUR ---
RN Note Asleep, moves occasionally. No distress noted.
--- NOTE | 2018-10-26 02:05 | NUR ---
Transfer of care No changes from previous assessment. Patient is asleep. No SOB or grimacing noted. IVF infusing. Given report to AFSHIN Greenberg.
--- NOTE | 2018-10-26 02:15 | NUR ---
RN NOTES: RECEIVED REPORT FROM RN , PT IS AWAKE , PT STATED HE JUST CAME BACK FROM WALK , NOTICED THAT HE HAS SWELLING TO HIS LEFT ANKLE AND HE HAS MILD TINGLING SENSATION TO THE LOWER LEG IZQUIERDO AREA, ABLE TO FEEL TOUCH , VITALS ARE STABLE ; ENCOURAGED PT TO CALL IF THE SYMPTOMS GET INCREASE .
--- NOTE | 2018-10-26 04:00 | NUR ---
RN ROUNDS: PT IS SLEEPING , LEGS ARE ELEVATED AT THIS TIME ; NO S/S OF ANY DISTRESS NOTED ; WILL CONTINUE TO MONITOR PT .
[2018-10-26] MEDS: LEVOTHYROXINE SODIUM 0.1 MG TABLET PO SCH (06:16)
[2018-10-26] MEDS: NACL 0.9% 1,000 ML IV SCH ×2 (06:19→15:15)
[2018-10-26] MEDS: metroNIDAZOLE 500 mg/NS 100 ML IV SCH ×2 (06:19→14:12)
--- NOTE | 2018-10-26 06:30 | NUR ---
RN NOTES: DUE MEDS GIVEN PER ORDER AFTER EXPLAINING TO THE PT , NOTICED THAT EDEMA TO THE LEFT ANKLE IS BETTER ( PTS FEET WAS ELEVATED). ENCOURAGED PT TO ELEVATE HIS FEET , AND PT DENIED ANY TINGLING TO HIS LEFT IZQUIERDO
--- NOTE | 2018-10-26 07:27 | NUR ---
CLOSING NOTES: PT IS SLEEPING ,EASILY AROUSABLE , NOT IN ANY ACUTE DISTRESS; RESPIRATION IS EVEN AND NON LABORED ; PT DENIED ANY TINGLING TO HIS LEFT IZQUIERDO AND EDEMA TO ANKLE IS BETTER ,REPORT GIVEN TO RN AT BEDSIDE ; ALL NEEDS MET .
--- NOTE | 2018-10-26 07:40 | NUR ---
Sleeping, but easily arousable , A/Ox4. On room air, chest rising and falling symmetrically. POC is explained. Call light in place, bed locked at the lowest position, will continue to monitor.
[2018-10-26 08:00] VITALS: BP_SYST 142; BP_SYST 156
[2018-10-26] MEDS: PREDNISONE 20 MG TABLET PO SCH (08:14)
[2018-10-26] MEDS: SIMETHICONE 80 MG TAB.CHEW PO SCH ×2 (08:14→14:12)
[2018-10-26] MEDS: PANTOPRAZOLE SODIUM 40 MG/VIAL (PROTONIX) IVP SCH (08:15)
--- NOTE | 2018-10-26 10:08 | NUR ---
Patient is walking around the hallway, no signs of distress noted.
--- NOTE | 2018-10-26 12:08 | NUR ---
dr. Wyman gave orders to discharge patient.
[2018-10-26 12:40] VITALS: BP_SYST 144
[2018-10-26] MEDS: LEVOFLOXACIN 500 MG/D5W 100 ML IV SCH (12:57)
--- NOTE | 2018-10-26 14:35 | NUR ---
patient is sitting in a chair, no signs of distress noted.
--- NOTE | 2018-10-26 17:30 | NUR ---
D/C Patient Patient given medication reconciliation form and D/C instructions. Exit Care provided. Patient verbalized understanding. MD discussed with patient the results and treatment provided. Ambulatory with steady gait for discharge to home. Patient in stable condition, ID band removed. IV catheter removed, intact and dressing applied, no active bleeding. Rx of PREDNISONE is given. Patient educated on pain management. All belongings sent with patient.
== END 2018-10-26 17:25 | disposition home or self-care (01) | DRG 392 ==
LOC: SED 02:22 → SMU 05:11
PROVIDERS: ADMIT Internal Medicine; ATTEND Internal Medicine
PROC: 0DBE8ZX Excision of Large Intestine, Via Natural or Artificial Opening Endoscopic, Diagnostic (ICD-10-PCS; 2018-10-24)
PROC: 0DB98ZX Excision of Duodenum, Via Natural or Artificial Opening Endoscopic, Diagnostic (ICD-10-PCS; principal; 2018-10-24 15:00)
PROC: 0DB68ZX Excision of Stomach, Via Natural or Artificial Opening Endoscopic, Diagnostic (ICD-10-PCS; 2018-10-24 15:00)
DX: K52.9 Noninfective gastroenteritis and colitis, unspecified (principal); D3A.8 Other benign neuroendocrine tumors; D72.1 Eosinophilia; E03.9 Hypothyroidism, unspecified; E66.9 Obesity, unspecified; K59.00 Constipation, unspecified; K80.20 Calculus of gallbladder without cholecystitis without obstruction; N40.0 Benign prostatic hyperplasia without lower urinary tract symptoms; K64.8 Other hemorrhoids; K29.70 Gastritis, unspecified, without bleeding; K29.80 Duodenitis without bleeding; K31.7 Polyp of stomach and duodenum; Z68.38 Body mass index [BMI] 38.0-38.9, adult
CPT/HCPCS: 36415; 43239; 45380; 71260-TC; 76700-TC; 78226; 80048; 80053; 80074; 80307; 81003; 82728; 83516; 83615-TC; 83690-TC; 85025; 85610-TC; 85730-TC; 86038; 86256; 86635; 86677; 87177; 87899; 88305; 88312; 88313; 88341; 88342; 88361; 93005; 96361; 96374; 96375; 99285; A9537; C9113; J1200; J1956; J2001; J2175; J2250; J2270; J2405; J3490; J7030; J7512; Q9964; Q9967

== ENCOUNTER 2020-10-28 07:53 | Emergency (ER) | payer BC, OTHER ==
[~2020-10-28] VITALS: Ht 167.6 cm; Wt 108.9 kg
[~2020-10-28 07:53] MED LIST changes: +LEVO25TA7 PO
[2020-10-28 07:57] VITALS: BP_SYST 139
[2020-10-28] MEDS: NACL 0.9% 1,000 ML IV ONE (08:42)
[2020-10-28] MEDS: ONDANSETRON HCL 4 MG/2 ML VIAL IVP ONE (08:42)
[2020-10-28] MEDS: KETOROLAC TROMETHAMINE 30 MG VIAL IVP ONE (08:43)
[2020-10-28 08:45] LABS: BASOPHILS # (AUTO) 0.1 K/uL (0.0-0.2); BASOPHILS % (AUTO) 0.5 % (0.0-2.0); EOSINOPHILS # (AUTO) 1.7 K/uL (0.0-0.4); EOSINOPHILS % (AUTO) 14.6 % (0.0-4.0); HEMATOCRIT 49.3 % (36-54); HEMOGLOBIN 16.5 g/dL (14.0-18.0); LYMPHOCYTES # (AUTO) 1.2 K/uL (1.0-5.5); MEAN CORPUSCULAR HEMOGLOBIN 30 pg (27-31); MEAN CORPUSCULAR HGB CONC 33 % (32-36); MEAN CORPUSCULAR VOLUME 89 fL (79.0-98.0); MONOCYTES # (AUTO) 0.6 K/uL (0.0-1.0); MONOCYTES % (AUTO) 5.4 % (1.7-9.3); NEUTROPHILS # (AUTO) 8.3 K/uL (1.8-7.7); NEUTROPHILS % (AUTO) 69.5 % (40.0-70.0); PLATELET COUNT (AUTO) 195 K/uL (130-430); RED BLOOD CELL COUNT(AUTO) 5.57 MIL/uL (4.2-6.2); RED CELL DISTRIBUTION WIDTH 14.9 % (9.0-15.0)
[2020-10-28 08:47] LABS: CALCIUM 8.5 mg/dL (8.4-11.0); CREATININE 1.08 mg/dL (0.55-1.30); POTASSIUM 4.2 mmol/L (3.5-5.1)
[2020-10-28 08:53] LABS: ALBUMIN 3.5 g/dL (3.4-4.8); TOTAL BILIRUBIN 1.2 mg/dL (0.0-1.0)
[2020-10-28] MEDS ORDERED: ONDA4TAB5 PO (09:09)
[2020-10-28] MEDS ORDERED: HYDR-3917 PO ×2 (09:09)
[2020-10-28] MEDS ORDERED: IBUP-1971 PO ×2 (09:09)
== END 2020-10-28 10:00 | disposition home or self-care (01) ==
LOC: SED 07:53
DX: R10.31 Right lower quadrant pain (principal); R11.2 Nausea with vomiting, unspecified; R19.7 Diarrhea, unspecified; Z79.899 Other long term (current) drug therapy
CPT/HCPCS: 36415; 74176; 76376; 80053; 83690; 85025; 96361; 96374; 96375; 99284; J1885; J2405; J7030

== ENCOUNTER 2020-10-29 12:58 | Inpatient (IN) | payer BC, SELFPAY ==
[~2020-10-29] VITALS: Ht 167.6 cm; Wt 109.8 kg
--- NOTE | 2020-10-29 02:10 | NUR ---
NOTES: called Dr. Emmanuel and verified NS bolus ordered, wanted another IV NS 1 liter bolus even pt. was already given in ER.
[~2020-10-29 12:58] MED LIST changes: +HYDR-3917 PO; +IBUP-1971 PO; +ONDA4TAB5 PO
[2020-10-29 13:00] VITALS: BP_SYST 131
--- NOTE | 2020-10-29 13:00 | NUR ---
BROUGHT BACK TO BED #4 AND TRIAGED. REPORT GIVEN TO CHRISTIANA
--- NOTE | 2020-10-29 13:05 | NUR ---
Pt came to ER for abdominal pain rates pain 10, was seen yesterday for same issue and received medication. Pt VSS, resting in [facility], awaiting MD.
--- NOTE | 2020-10-29 13:10 | NUR ---
ER at bedside examining patient.
[2020-10-29] MEDS ORDERED: ONDANSETRON HCL 4 MG/2 ML VIAL IVP ONE (13:45)
[2020-10-29] MEDS ORDERED: MORPHINE 4 MG INJ. 4 MG/ML VIAL IVP ONE ×2 (13:45→15:45)
[2020-10-29] MEDS ORDERED: NACL 0.9% 1,000 ML IV ONE ×2 (13:45→19:15)
[2020-10-29 13:58] LABS: PLATELET COUNT (AUTO) 186 K/uL (130-430)
[2020-10-29 14:05] LABS: HEMATOCRIT 47.3 % (36-54); HEMOGLOBIN 15.5 g/dL (14.0-18.0); MEAN CORPUSCULAR HEMOGLOBIN 29 pg (27-31); MEAN CORPUSCULAR HGB CONC 33 % (32-36); MEAN CORPUSCULAR VOLUME 89 fL (79.0-98.0); RED BLOOD CELL COUNT(AUTO) 5.29 MIL/uL (4.2-6.2); RED CELL DISTRIBUTION WIDTH 15.5 % (9.0-15.0); WHITE BLOOD COUNT (AUTO) 12.3 K/uL (4.8-10.8)
[2020-10-29 14:09] LABS: CREATININE 1.08 mg/dL (0.55-1.30); POTASSIUM 4.6 mmol/L (3.5-5.1)
[2020-10-29 14:14] LABS: ALBUMIN 3.2 g/dL (3.4-4.8); TOTAL BILIRUBIN 0.8 mg/dL (0.0-1.0)
[2020-10-29] MEDS ORDERED: DIPHENHYDRAMINE INJ 50 MG/ML VIAL IVP ONE (14:15)
[2020-10-29 14:16] LABS: CALCIUM 8.1 mg/dL (8.4-11.0)
[2020-10-29 14:48] LABS: BAND % (MANUAL) 1 % (0-6)
--- NOTE | 2020-10-29 14:48 | NUR ---
Pt tolerated medication well, asleep at this time comfortable
[2020-10-29 14:49] LABS: BASOPHILS % (MANUAL) 0 % (0-2); EOSINOPHILS % (MANUAL) 17 % (0-7); LYMPHOCYTES % (MANUAL) 13 % (20-46); MONOCYTES % (MANUAL) 7 % (0-11)
[2020-10-29 15:54] LABS: BILIRUBIN,URINE NEGATIVE (NEGATIVE); BLOOD, URINE NEGATIVE (NEGATIVE); CLARITY/URINE CLEAR (CLEAR); COLOR,URINE YELLOW (YELLOW); GLUCOSE,URINE NEGATIVE (NEGATIVE); KETONES,URINE NEGATIVE (NEGATIVE); LEUKOCYTE ESTERASE ,URINE NEGATIVE (NEGATIVE); NITRITE, URINE NEGATIVE (NEGATIVE); PROTEIN URINE NEGATIVE (NEGATIVE); UROBILINOGEN,URINE 0.2 (0.2-1.0)
[2020-10-29] MEDS ORDERED: fentaNYL CITRATE/PF 100 MCG/2 ML AMP IVP ONE (16:00)
--- NOTE | 2020-10-29 17:29 | NUR ---
Pt asleep in [facility] at this time
[2020-10-29] MEDS ORDERED: PIPERACILLIN/TAZO 3.375 GM in NS 50 ML IV ONE (17:30)
[2020-10-29] MEDS ORDERED: PIPERACILLIN/TAZOBACTAM 3.375 GM/VIAL (ZOSYN) IV ONE ×3 (17:39→22:03)
--- NOTE | 2020-10-29 19:00 | NUR ---
[facility]. Belongings list completed. Complete and up to date summary report printed. SBAR report to be given at bedside with opportunity for questions.
[2020-10-29] MEDS ORDERED: NALOXONE HCL 0.4 MG/ML AMP (NARCAN) IVP PRN (19:15)
[2020-10-29] MEDS ORDERED: ALBUTEROL SULFATE 0.083% 2.5 MG/3 ML VIAL.NEB INH PRN (19:15)
[2020-10-29] MEDS ORDERED: PIPERACILLIN/TAZO 3.375/DEX-IS 50 ML IV SCH (19:15)
[2020-10-29] MEDS ORDERED: ACETAMINOPHEN 325 MG TABLET PO PRN (19:15)
--- NOTE | 2020-10-29 19:15 | NUR ---
Received report from Lang PEPE. Patient resting quietly. No acute distress noted. VSS.
--- NOTE | 2020-10-29 19:21 | NUR ---
Patient's code status is FULL CODE paperwork completed and placed in chart.
--- NOTE | 2020-10-29 19:22 | NUR ---
Medication reconciliation completed with information provided by PATIENT. Any prior medication reconciliation on file was reviewed and corrected by CHRISTIANA PEPE.
--- NOTE | 2020-10-29 19:50 | NUR ---
Transfer to 106B via ACLS protocol. Licensed nurse present. IV present no signs or symptoms of infiltration.
--- NOTE | 2020-10-29 20:10 | NUR ---
ADMISSION PHYSICAL ASSESSMENT NOTES; Admiitted a 49 yr. old male from ER /from home with the chief c/o abdominal pain with Dx Carcinoid Syndrome. pt. awake, alert , oriented to room and us eof call light and bed control. at bedside. IV lock on left ac. placed on traffic monitor specialist and shows sinus bradycardia HR 54. moves all extremities well, less abdominal pain on arrival. on room air, no shortness of breath. call light at bedside.
[2020-10-29 20:30] VITALS: BP_SYST 129
[2020-10-29 21:00] VITALS: BP_SYST 129
[2020-10-29 22:00] VITALS: BP_SYST 128
[2020-10-29] MEDS: NACL 0.9% 1,000 ML IV SCH (22:46)
[2020-10-29] MEDS: MORPHINE 4 MG INJ. 4 MG/ML VIAL IVP PRN (22:58)
--- NOTE | 2020-10-29 23:00 | NUR ---
NOTES: pt. medicated with IV Morphine for c/o abdominal pain. pt. repositioned self for comfort. IVF infusing.
[2020-10-29] MEDS: PIPERACILLIN/TAZO 3.375/DEX-IS 50 ML IV SCH (23:17)
[2020-10-30 00:07] VITALS: BP_SYST 128
--- NOTE | 2020-10-30 00:15 | NUR ---
NOTES: pt. checked and sleeping soundly. due IV antibiotic infused.
--- NOTE | 2020-10-30 02:10 | NUR ---
NOTES: called Dr. Emmanuel and verified IV NS bolus, still wants another liter even when pt. had IV bolus given in ER>
--- NOTE | 2020-10-30 04:19 | NUR ---
NOTES: condition observed. continue to monitor.
--- NOTE | 2020-10-30 05:27 | NUR ---
CONSULT: CONSULT CALLED FOR DR. LOW I SPOKE WITH GLORY PAU REASON FOR CONSULT: EOSINOPHILIC GASTROENTERITIS REQUESTING CONSULT: DR. MORELAND HAZARD MITIGATION OFFICER PHONE NUMBER: [phone]
[2020-10-30] MEDS: PIPERACILLIN/TAZO 3.375/DEX-IS 50 ML IV SCH ×4 (05:42→23:36)
[2020-10-30] MEDS: MORPHINE 4 MG INJ. 4 MG/ML VIAL IVP PRN ×2 (05:53→10:54)
[2020-10-30] MEDS: NACL 0.9% 1,000 ML IV SCH ×3 (05:53→20:07)
--- NOTE | 2020-10-30 06:00 | NUR ---
NOTES: pt. awakened c/o abdominal pain, ambulated to the restroom before medicated for pain, IV Morphine given. needs attended.
--- NOTE | 2020-10-30 06:35 | NUR ---
CLOSING NOTES; pt. asleep after pain medication. IVF patent, kept @ 125 cc/hr. for further care and assistance. dr. Solis for consult today. call light at bedside.
[2020-10-30 06:54] LABS: BASOPHILS % (AUTO) 0.2 % (0.0-2.0); EOSINOPHILS # (AUTO) 3.8 K/uL (0.0-0.4); EOSINOPHILS % (AUTO) 35.4 % (0.0-4.0); HEMATOCRIT 40.3 % (36-54); HEMOGLOBIN 13.7 g/dL (14.0-18.0); LYMPHOCYTES # (AUTO) 1.8 K/uL (1.0-5.5); MEAN CORPUSCULAR HEMOGLOBIN 30 pg (27-31); MEAN CORPUSCULAR HGB CONC 34 % (32-36); MEAN CORPUSCULAR VOLUME 89 fL (79.0-98.0); MONOCYTES # (AUTO) 0.6 K/uL (0.0-1.0); MONOCYTES % (AUTO) 5.6 % (1.7-9.3); NEUTROPHILS # (AUTO) 4.4 K/uL (1.8-7.7); PLATELET COUNT (AUTO) 163 K/uL (130-430); RED BLOOD CELL COUNT(AUTO) 4.53 MIL/uL (4.2-6.2); RED CELL DISTRIBUTION WIDTH 14.9 % (9.0-15.0); WHITE BLOOD COUNT (AUTO) 10.6 K/uL (4.8-10.8)
--- NOTE | 2020-10-30 07:33 | NUR ---
CONSULTATION; REASON FOR CONSULT: ABDOMINAL PAIN CONSULTING PHYSICIAN: CHANDNI NICOLE ORDERED BY: MERLY SPOKE TO DR NICOLE HIMSELF AND IS AWARE OF THE CONSULT
[2020-10-30 07:41] LABS: ALBUMIN 2.6 g/dL (3.4-4.8); CALCIUM 7.8 mg/dL (8.4-11.0); CREATININE 1.12 mg/dL (0.55-1.30); POTASSIUM 4.2 mmol/L (3.5-5.1); TOTAL BILIRUBIN 0.7 mg/dL (0.0-1.0)
[2020-10-30 08:00] VITALS: BP_SYST 133
[2020-10-30] MEDS ORDERED: cloNIDine HCL 0.1 MG TABLET PO PRN (08:00)
[2020-10-30] MEDS ORDERED: ENALAPRILAT DIHYDRATE 1.25 MG/ML VIAL IVP PRN (08:00)
--- NOTE | 2020-10-30 08:00 | NUR ---
RECEIVED PATIENT RESTING IN BED WITH EYES CLOSED. EASILY AROUSABLE ORIENTED X4. IV INFUSING LEFT A/C AT PRESCRIBED RATE. VITALS WNL. WILL CONTINUE TO MONITOR.
[2020-10-30] MEDS ORDERED: LEVOTHYROXINE SODIUM 0.025 MG TABLET PO ONE ×3 (08:15→08:45)
[2020-10-30] MEDS: PANTOPRAZOLE SODIUM 40 MG/VIAL (PROTONIX) IVP SCH (08:29)
[2020-10-30 08:38] LABS: NEUTROPHILS % (AUTO) 41.8 % (40.0-70.0)
[2020-10-30 12:22] VITALS: BP_SYST 133
[2020-10-30] MEDS: MORPHINE 2 MG/ML INJ. SYRINGE IVP PRN (15:13)
[2020-10-30 15:15] VITALS: BP_SYST 119
[2020-10-30] MEDS ORDERED: BISACODYL 5 MG TABLET.DR (DULCOLAX) PO ONE (17:00)
--- NOTE | 2020-10-30 17:02 | NUR ---
PER GEN SURGEON DR Vamshi NICOLE, I WAS INSTRUCTED TO INFORM THE ATTENDING MD DR MORELAND THAT HE IS NOT AVAILABLE FOR THE CONSULT. NOTIFIED AFSHIN PEREA.
--- NOTE | 2020-10-30 17:23 | NUR ---
ATTENDING MD DR MORELAND WAS CALLED, RE: TO GET ANOTHER GEN SURGEON, REPLACING DR Vamshi NICOLE WHO IS NOT AVAILABLE. SPOKE TO CARLOS A.
[2020-10-30] MEDS ORDERED: GOLYTELY / COLYTE SOLUTION 4 LITERS PO ONE (18:00)
--- NOTE | 2020-10-30 18:27 | NUR ---
PATIENT RESTING IN BED WITH BOWEL PREP AT BEDSIDE INFORMED TO DRINK WITH MAKING HIMSELF VOMIT. IV INFUSING LEFT A/C AT PRESCRIBED RATE. NO SIGN OF DISTRESS. FAMILY AT BEDSIDE. WILL ENDORSE TO NEXT SHIFT.
--- NOTE | 2020-10-30 19:15 | NUR ---
CHANGE OF SHIFT; endorsed by day shift, schedule fro EGD and colonoscopy tomorrow, consent signed as endorsed and started on Copybar. no acute distress. call light within reach.
[2020-10-30 20:00] VITALS: BP_SYST 140
--- NOTE | 2020-10-30 20:05 | NUR ---
NOTES: pt. called and c/o being nauseated and abdomen full, verbalizing about taking Golytely since 6 pm and have not had any bowel movement. informed pt. to give it some time and it could be from the IV Morphine thats making him constipated, been on IV Morphine since admission yesterday. pt. remain at bedside. IV infusing @ 125 cc/hr via left antecubital. pt. ambulates to the restroom.
--- NOTE | 2020-10-30 21:30 | NUR ---
NOTES: pt. pretty upset coz he has not have any bowel movement. tried to explain to him that he needed to drink all of it by midnight otherwise will have to call MD to let him know. pt. said he will try to finish it and enema in the morning. continue to monitor.
--- NOTE | 2020-10-30 22:02 | NUR ---
PAGED PAGED DOCTOR LIZET FOR ORDERS
--- NOTE | 2020-10-30 22:02 | NUR ---
NOTES: pt. finally had a bowel movement, but pt. ffeling nauseated and will call MD.
--- NOTE | 2020-10-30 22:05 | NUR ---
NOTES: Dr. Watson occupational nurse for GI group and informed about the nausea and ordered medication.
--- NOTE | 2020-10-30 22:13 | NUR ---
NOTES: pt. feeling cold, warm blanket given and asked tech to call to adjust room temperature.
[2020-10-30] MEDS: ONDANSETRON HCL 4 MG/2 ML VIAL IVP PRN (22:31)
--- NOTE | 2020-10-30 22:57 | NUR ---
NOTES: pt. now feels hot. pt. was medicated with IV Zofran for c/o nausea, no vomiting.
[2020-10-30] MEDS ORDERED: METOCLOPRAMIDE HCL 10 MG/2 ML VIAL IVP ONE (23:00)
--- NOTE | 2020-10-31 00:01 | NUR ---
NOTES: pt. completed Golytely. kept NPO after midnight.
--- NOTE | 2020-10-31 00:30 | NUR ---
NOTES: pt. checked and sleeping. IVF continuous.
[2020-10-31 00:53] VITALS: BP_SYST 126
--- NOTE | 2020-10-31 03:05 | NUR ---
NOTES: pt. been sleeping, no further complaints. IVF continuous. condition unchanged, continue to monitor. pt. rhythm, sinus bradycardia.
[2020-10-31] MEDS: NACL 0.9% 1,000 ML IV SCH ×3 (04:34→17:40)
--- NOTE | 2020-10-31 06:00 | NUR ---
NOTES: pt. awakened for tap water enema, tolerated well with clear return. am care done by pt. consent signed for EGD and colonoscopy. kept NPO.
[2020-10-31] MEDS: PIPERACILLIN/TAZO 3.375/DEX-IS 50 ML IV SCH ×4 (06:04→23:17)
[2020-10-31 06:37] LABS: INR 1.2 (0.80-1.20); PROTHROMBIN TIME 12.2 SECS (9.5-12.5)
--- NOTE | 2020-10-31 06:52 | NUR ---
CLOSING NOTES; IVF resume, needs attende. ready for procedure this am. for further care and assistance. call light at bedside. will endorse to incoming shift.
--- NOTE | 2020-10-31 07:35 | NUR ---
patient to GI lab via
[2020-10-31] MEDS ORDERED: SIMETHICONE 40 MG/0.6 ML ML ONE (07:41)
--- NOTE | 2020-10-31 07:50 | NUR ---
UPON ENTERING ROOM PATIENT APPEARED AGITATED AND WOULD NOT ALLOW NURSE TO TAKE VITAL SIGNS, ONLY WAS ABLE TO OBTAIN TEMP. PATIENT REFUSED TO ANSWER QUESTIONS.
[2020-10-31 07:56] VITALS: BP_SYST 142
[2020-10-31] MEDS: MEPERIDINE 100 MG INJ. 100 MG/ML VIAL ONE ×3 (08:07→08:31)
[2020-10-31] MEDS: MIDAZOLAM HCL 5 MG/5 ML VIAL ONE ×5 (08:07→08:31)
[2020-10-31] MEDS: PANTOPRAZOLE SODIUM 40 MG/VIAL (PROTONIX) IVP SCH (10:01)
[2020-10-31] MEDS: LEVOTHYROXINE SODIUM 0.125 MG TABLET PO SCH (10:01)
[2020-10-31] MEDS ORDERED: HYDR-3917 PO (10:37)
[2020-10-31 10:49] VITALS: BP_SYST 142
[2020-10-31 16:00] VITALS: BP_SYST 143
--- NOTE | 2020-10-31 18:33 | NUR ---
PATIENT RESTING IN BED EATING DINNER. ON ROOM AIR NO DISTRESS NOTED. IV INFUSING AT PRESCRIBED RATE. ALL NEEDS MET THROUGH SHIFT. SAFETY PRECAUTIONS IN PLACE. WILL COTNINUE TO MONITOR AND ENDORSE TO NEXT SHIFT.
--- NOTE | 2020-10-31 19:30 | NUR ---
OPENING NOTE RCVD PT FROM DAYSHIFT RN. PT AWAKE ALERT AND AMBULATORY. BREATHING ON ROOM AIR NO SIGNS OF DISTRESS. IV ON LAC #20 INFUSING ORDERED FLUIDS. NO INFILTRATION NOTED. PT REPORTED HAD A BOWEL MOVEMENT. BED LOCKED IN LOWEST POSITION. CALL LIGHT WITH PT. WILL CONTINUE TO MONITOR.
[2020-10-31 20:00] VITALS: BP_SYST 132
--- NOTE | 2020-10-31 20:15 | NUR ---
RN NOTE PT VITAL SIGNS STABLE. PT DENIES PAIN/NAUSEA AT THIS TIME. WILL CTM.
--- NOTE | 2020-10-31 23:00 | NUR ---
PT GIVEN PAIN MED FOR PAIN 6/10 IN STOMACH. WILL REASSESS AND MONITOR.
[2020-10-31] MEDS: MORPHINE 2 MG/ML INJ. SYRINGE IVP PRN (23:01)
[2020-11-01] VITALS (7 sets, daily range): BP systolic 128–148
--- NOTE | 2020-11-01 00:34 | NUR ---
RN NOTE PT VITAL SIGNS STABLE. WILL CONTINUE TO MONITOR.
[2020-11-01] MEDS: NACL 0.9% 1,000 ML IV SCH ×3 (02:08→23:35)
[2020-11-01] MEDS: PIPERACILLIN/TAZO 3.375/DEX-IS 50 ML IV SCH ×4 (06:04→23:34)
[2020-11-01] MEDS: LEVOTHYROXINE SODIUM 0.125 MG TABLET PO SCH (06:04)
[2020-11-01] MEDS: ONDANSETRON HCL 4 MG/2 ML VIAL IVP PRN (06:07)
--- NOTE | 2020-11-01 06:42 | NUR ---
CLOSING NOTE PT RESTING IN BED. NO S/S OF DISTRESS THROUGHOUT SHIFT. BREATHING ON ROOM AIR NO SIGNS OF DISTRESS. IV ON LAC #20 INFUSING ORDERED FLUIDS. NO INFILTRATION NOTED. BED LOCKED IN LOWEST POSITION. CALL LIGHT WITH PT. WILL ENDORSE TO DAYSHIFT RN
[2020-11-01 06:47] LABS: BASOPHILS % (AUTO) 0.2 % (0.0-2.0); EOSINOPHILS # (AUTO) 4.2 K/uL (0.0-0.4); HEMATOCRIT 44.1 % (36-54); LYMPHOCYTES # (AUTO) 2.1 K/uL (1.0-5.5); LYMPHOCYTES % (AUTO) 16.2 % (20.5-51.5); MEAN CORPUSCULAR HEMOGLOBIN 30 pg (27-31); MEAN CORPUSCULAR HGB CONC 34 % (32-36); MEAN CORPUSCULAR VOLUME 89 fL (79.0-98.0); MONOCYTES # (AUTO) 0.6 K/uL (0.0-1.0); MONOCYTES % (AUTO) 4.9 % (1.7-9.3); NEUTROPHILS # (AUTO) 5.9 K/uL (1.8-7.7); PLATELET COUNT (AUTO) 185 K/uL (130-430); RED BLOOD CELL COUNT(AUTO) 4.97 MIL/uL (4.2-6.2); RED CELL DISTRIBUTION WIDTH 15.4 % (9.0-15.0); WHITE BLOOD COUNT (AUTO) 12.8 K/uL (4.8-10.8)
[2020-11-01 07:16] LABS: CALCIUM 7.7 mg/dL (8.4-11.0); CREATININE 0.99 mg/dL (0.55-1.30); POTASSIUM 3.8 mmol/L (3.5-5.1)
--- NOTE | 2020-11-01 07:53 | NUR ---
Opening notes: PATIENT EATING BREAKFAST. NO SIGNS OF ACUTE DISTRESS NOTED. NPO AFTER BREAKFAST FOR HIDA SCAN THIS AFTERNOON. FALL. DENIES LEIGHANN DISCOMFORT AT THIS TIME. CALL LIGHT WITH IN REACH.
[2020-11-01] MEDS: PANTOPRAZOLE SODIUM 40 MG/VIAL (PROTONIX) IVP SCH (08:23)
[2020-11-01] MEDS ORDERED: DICYCLOMINE HCL 10 MG CAPSULE PO ONE (10:00)
[2020-11-01 12:09] LABS: NEUTROPHILS % (AUTO) 45.7 % (40.0-70.0)
--- NOTE | 2020-11-01 13:00 | NUR ---
RN NOTES: PATIENT FOR HIDA SCAN VIA WHEELCHAIR. STABLE CONDITION.
--- NOTE | 2020-11-01 15:00 | NUR ---
HIDA SCAN DONE: PATIENT BACK TO ROOM FROM HIDA SCAN VIA WHEELCHAIR.
--- NOTE | 2020-11-01 15:29 | NUR ---
General Surgeon Dr Vamshi NICOLE was called, re: results of HIDA scan and clearance to discharge home. Spoke to
--- NOTE | 2020-11-01 16:10 | NUR ---
SPOKE TO DR. NICOLE: SPOKE TO DR. NICOLE AND RELAYED THE HIDA SCAN RESULT AND IF THE PATIENT WILL BE CLEARED FOR DISCHARGE. DR NICOLE WILL SEE THE PATIENT FIRST.
--- NOTE | 2020-11-01 18:51 | NUR ---
CLOSING NOTES: PATIENT RESTING IN BED. BREATHING EVEN AND NON LABORED. IV AT LEFT AC G20 AND INFUSING WELL. CALL LIGHT WITH PATIENT.
--- NOTE | 2020-11-01 19:20 | NUR ---
REPORT RECEIVED FROM DAY SHIFT NURSE. PT IS RESTING COMFORTABLY IN BED. NO C/O PAIN OR DISCOMFORT. IVF IS INFUSING WELL IN [facility]. FALL AND SAFETY PRECAUTIONS ARE IN PLACE.
[2020-11-01] MEDS: DICYCLOMINE HCL 10 MG CAPSULE PO SCH (20:34)
[2020-11-02 02:52] VITALS: BP_SYST 146
[2020-11-02] MEDS: NACL 0.9% 1,000 ML IV SCH ×2 (03:15→09:15)
[2020-11-02] MEDS: LEVOTHYROXINE SODIUM 0.125 MG TABLET PO SCH (06:12)
[2020-11-02] MEDS: PIPERACILLIN/TAZO 3.375/DEX-IS 50 ML IV SCH ×2 (06:13→11:21)
--- NOTE | 2020-11-02 06:30 | NUR ---
PT IS AWAKE AND RESTING COMFORTABLY IN BED. ALL PT'S NEEDS WERE ATTENDED TO. WILL ENDORSE TO DAY SHIFT NURSE.
--- NOTE | 2020-11-02 07:20 | NUR ---
OPENING NOTE Patient resting in the bed. No acute distress. AAO x 4. Denied of pain. Skin warm and dry to touch. IV intact to LAC, no redness, no swelling, no drainage. On NS at 125ml/hr, infusing well. Discussed the safety issue, use call light when needs help, and plan of care, verbally understanding. Safety measure maintained. Call light within reached. Bed locked in low position, side rails up. Will continue to monitor.
--- NOTE | 2020-11-02 07:28 | NUR ---
SEEN AND EXAMINED BY CORONA URENA. PER DR. RYAN, PATIENT OK TO DISCHARGE ON GI STANDPOINT AND NEEDS TO FOLLOW UP WITH DR. LOW IN 1 MONTH OUTPATIENT.
--- NOTE | 2020-11-02 07:38 | NUR ---
CHANDNI NARVAEZ IN THE UNIT. INFORMED TO DR. NICOLE THE PATIENT ALREADY HAD DISCHARGE ORDER IF CLEAR BY HIM. DR. NICOLE STATED "I DON'T SEE THIS PATIENT".
[2020-11-02 07:50] VITALS: BP_SYST 142
[2020-11-02 08:05] LABS: BASOPHILS % (AUTO) 0.2 % (0.0-2.0); EOSINOPHILS # (AUTO) 4.4 K/uL (0.0-0.4); EOSINOPHILS % (AUTO) 34.5 % (0.0-4.0); HEMOGLOBIN 14.1 g/dL (14.0-18.0); LYMPHOCYTES # (AUTO) 1.9 K/uL (1.0-5.5); LYMPHOCYTES % (AUTO) 14.5 % (20.5-51.5); MEAN CORPUSCULAR HEMOGLOBIN 31 pg (27-31); MEAN CORPUSCULAR HGB CONC 34 % (32-36); MEAN CORPUSCULAR VOLUME 89 fL (79.0-98.0); MONOCYTES # (AUTO) 0.5 K/uL (0.0-1.0); MONOCYTES % (AUTO) 4.2 % (1.7-9.3); NEUTROPHILS % (AUTO) 46.6 % (40.0-70.0); PLATELET COUNT (AUTO) 169 K/uL (130-430); RED BLOOD CELL COUNT(AUTO) 4.59 MIL/uL (4.2-6.2); RED CELL DISTRIBUTION WIDTH 15.5 % (9.0-15.0); WHITE BLOOD COUNT (AUTO) 12.9 K/uL (4.8-10.8)
[2020-11-02 08:23] LABS: ALBUMIN 2.6 g/dL (3.4-4.8); CALCIUM 7.7 mg/dL (8.4-11.0); CREATININE 0.99 mg/dL (0.55-1.30); POTASSIUM 3.8 mmol/L (3.5-5.1); TOTAL BILIRUBIN 0.5 mg/dL (0.0-1.0)
[2020-11-02] MEDS: PANTOPRAZOLE SODIUM 40 MG/VIAL (PROTONIX) IVP SCH (09:16)
[2020-11-02] MEDS: DICYCLOMINE HCL 10 MG CAPSULE PO SCH (09:16)
--- NOTE | 2020-11-02 09:25 | NUR ---
AM SCHEDULE MED GIVEN, TOLERATED WELL. PATIENT SITTING IN THE CHAIR AT BEDSIDE. SAFETY MEASURE MAINTAINED. CONTINUE TO MONITOR.
--- NOTE | 2020-11-02 10:15 | NUR ---
SEEN AND EXAMINED BY MARILYN ROSS.
[2020-11-02] MEDS ORDERED: BENI20 PO (10:30)
[2020-11-02] MEDS ORDERED: LEVO500T89 PO (10:30)
[2020-11-02] MEDS ORDERED: METR500T PO (10:30)
--- NOTE | 2020-11-02 11:21 | NUR ---
DERICK HANG Patient resting in the bed. No acute distress. Safety measure maintained. Call light within reached. Continue to monitor.
[2020-11-02 11:30] VITALS: BP_SYST 142
[2020-11-02 13:03] VITALS: BP_SYST 142
--- NOTE | 2020-11-02 13:34 | NUR ---
D/C Patient Patient given medication reconciliation form and D/C instructions. Exit Care provided. Patient verbalized understanding. MD discussed with patient the results and treatment provided. Ambulatory with steady gait for discharge to home. Patient in stable condition, ID band removed. IV catheter removed, intact and dressing applied, no active bleeding. Rx of [place] given. E-prescription of Dicyclomine, Levaquin, and Levaquin given. Patient educated on pain management. Per patient already called his PCP and GI for appointment. However, both did not give him appointment until he discharge. He will make an appointment in the office when he pass by when going home. All belongings sent with patient.
== END 2020-11-02 13:34 | disposition home or self-care (01) | DRG 392 ==
LOC: SED 12:58 → STU 17:27 → SMU 10-31 18:10
PROVIDERS: ADMIT Internal Medicine Hospice and Palliative Medicine; ATTEND Internal Medicine Hospice and Palliative Medicine
PROC: 0DBH8ZX Excision of Cecum, Via Natural or Artificial Opening Endoscopic, Diagnostic (ICD-10-PCS; 2020-10-31)
PROC: 0DBH8ZZ Excision of Cecum, Via Natural or Artificial Opening Endoscopic (ICD-10-PCS; 2020-10-31)
PROC: 0DBK8ZX Excision of Ascending Colon, Via Natural or Artificial Opening Endoscopic, Diagnostic (ICD-10-PCS; 2020-10-31)
PROC: 0DB98ZX Excision of Duodenum, Via Natural or Artificial Opening Endoscopic, Diagnostic (ICD-10-PCS; principal; 2020-10-31 08:00)
PROC: 0DB68ZX Excision of Stomach, Via Natural or Artificial Opening Endoscopic, Diagnostic (ICD-10-PCS; 2020-10-31 08:00)
DX: K52.9 Noninfective gastroenteritis and colitis, unspecified (principal); E34.0 Carcinoid syndrome; D3A.00 Benign carcinoid tumor of unspecified site; E03.9 Hypothyroidism, unspecified; E88.09 Other disorders of plasma-protein metabolism, not elsewhere classified; I10 Essential (primary) hypertension; K29.70 Gastritis, unspecified, without bleeding; K29.80 Duodenitis without bleeding; K57.30 Diverticulosis of large intestine without perforation or abscess without bleeding; K59.9 Functional intestinal disorder, unspecified; K63.5 Polyp of colon; K64.8 Other hemorrhoids; K75.81 Nonalcoholic steatohepatitis (NASH); K80.20 Calculus of gallbladder without cholecystitis without obstruction; D3A.092 Benign carcinoid tumor of the stomach; E07.9 Disorder of thyroid, unspecified; E66.9 Obesity, unspecified; R16.0 Hepatomegaly, not elsewhere classified; K27.9 Peptic ulcer, site unspecified, unspecified as acute or chronic, without hemorrhage or perforation; Z68.39 Body mass index [BMI] 39.0-39.9, adult
CPT/HCPCS: 36415; 43239; 45380; 71045; 76376; 78226; 80048; 80053; 81003; 83690; 85007; 85025; 85027; 85610-TC; 87081; 88305; 88312; 88313; 93005; 96361; 96365; 96375; 99285; A9537; C9113; G0378; J1200; J2175; J2250; J2270; J2405; J2543; J3010; Q9967

== ENCOUNTER 2021-08-10 11:49 | Inpatient (IN) | payer BC ==
[~2021-08-10] VITALS: Ht 167.6 cm; Wt 106.6 kg
[~2021-08-10 11:49] MED LIST changes: +BENI20 PO; -IBUP-1971 PO; +LEVO500T90 PO; +METR500T PO; -PRED20TA PO
[2021-08-10 12:47] VITALS: BP_SYST 125
--- NOTE | 2021-08-10 12:58 | NUR ---
pt triaged, vs stable, place pt back in waiting room adv that once we have room available we will call
--- NOTE | 2021-08-10 14:20 | NUR ---
PT ABLE TO AMBULATE TO RESTROOM TO PROVIDE URINE SAMPLE
[2021-08-10 14:48] LABS: MEAN CORPUSCULAR HEMOGLOBIN 30 pg (27-31); MEAN CORPUSCULAR VOLUME 88 fL (79.0-98.0); PLATELET COUNT (AUTO) 225 K/uL (130-430)
[2021-08-10 14:56] LABS: BASOPHILS # (AUTO) 0.1 K/uL (0.0-0.2); BASOPHILS % (AUTO) 0.3 % (0.0-2.0); EOSINOPHILS # (AUTO) 11.3 K/uL (0.0-0.4); EOSINOPHILS % (AUTO) 56.6 % (0.0-4.0); HEMATOCRIT 46.9 % (36-54); HEMOGLOBIN 15.8 g/dL (14.0-18.0); LYMPHOCYTES # (AUTO) 2.6 K/uL (1.0-5.5); MEAN CORPUSCULAR HGB CONC 34 % (32-36); MONOCYTES # (AUTO) 0.7 K/uL (0.0-1.0); MONOCYTES % (AUTO) 3.5 % (1.7-9.3); NEUTROPHILS # (AUTO) 5.3 K/uL (1.8-7.7); NEUTROPHILS % (AUTO) 26.6 % (40.0-70.0); RED BLOOD CELL COUNT(AUTO) 5.32 MIL/uL (4.2-6.2); RED CELL DISTRIBUTION WIDTH 15.8 % (9.0-15.0)
[2021-08-10 15:00] LABS: CALCIUM 8.2 mg/dL (8.4-11.0); CREATININE 0.98 mg/dL (0.55-1.30); POTASSIUM 3.8 mmol/L (3.5-5.1)
[2021-08-10 15:04] LABS: ALBUMIN 3.2 g/dL (3.4-4.8); TOTAL BILIRUBIN 0.9 mg/dL (0.0-1.0)
[2021-08-10 15:21] LABS: BILIRUBIN,URINE 1+ (NEGATIVE); BLOOD, URINE NEGATIVE (NEGATIVE); COLOR,URINE YELLOW (YELLOW); GLUCOSE,URINE NEGATIVE (NEGATIVE); KETONES,URINE 1+ (NEGATIVE); LEUKOCYTE ESTERASE ,URINE NEGATIVE (NEGATIVE); NITRITE, URINE NEGATIVE (NEGATIVE); PROTEIN URINE TRACE (NEGATIVE); UROBILINOGEN,URINE 0.2 (0.2-1.0)
--- NOTE | 2021-08-10 15:58 | NUR ---
Placed in room 4 . Placed on health technician, blood pressure machine and pulse oximeter. To gown for exam. Side rails up. Report given to AFSHIN DE LEON.
[2021-08-10 16:00] LABS: CLARITY/URINE HAZY (CLEAR)
[2021-08-10 16:04] LABS: BACTERIA,URINE FEW /HPF (None Seen); RBC,URINE NONE SEEN /HPF (0-3); WBC,URINE 0-3 /HPF (0-3)
[2021-08-10 16:05] LABS: MUCUS,URINE 3+ /LPF (None Seen); URINE AMORPHOUS URATE 2+ /HPF (None Seen)
--- NOTE | 2021-08-10 16:37 | NUR ---
ER at bedside examining patient.
--- NOTE | 2021-08-10 16:41 | NUR ---
pt taken to CT in wheelchair
--- NOTE | 2021-08-10 16:42 | NUR ---
pt presents to ER with stomach pain. Patient states he has had severe stomach pain, diarrhea, and bloating for a month. Patient has not eaten anything since last night due to stomach pain. Stomach is visually distended, bowel sounds hypoactive, and has RUQ pain upon palpatyion and percussion. respirations WNL. no signs of acute distress. Pain is a 7/10. Skin is intact. Patient is able tot ambulate, but feels lightheaded when standing
[2021-08-10] MEDS ORDERED: NACL 0.9% 1,000 ML IV ONE (16:45)
--- NOTE | 2021-08-10 20:00 | NUR ---
Pt is currently lying supine on gurney, denies any pain at this time. Non diaphoretic. Lab done, pending result. L hand IV line flushed easily, running NS fluid, pt tolerated. Pending Covid swab. Will continue to monitor
[2021-08-10] MEDS ORDERED: LOSA50TA3 PO (20:29)
--- NOTE | 2021-08-10 20:39 | NUR ---
Admit bed requested Patient will be admitted to care of . Admitted to MED SURG unit. Diagnosis ABD PAIN,ASCITES Inpatient (Yes or No) YES Observation (Yes or No) NO Orientation concerns or request close to nursing station (Yes or No) NO Covid Status PENDING On vent or bipap NO Isolation requirements NO Needs a sitter NO From Home (Yes or if No enter name of facility) YES Requires Dialysis (Yes or No) NO Med Rec Completed (Yes of No) YES
--- NOTE | 2021-08-10 22:57 | NUR ---
Patient will be admitted to care of Med Surg unit. Will go to room . Full repart was given to AFSHIN Conner. Belongings list completed. Complete and up to date summary report printed. SBAR report to be given at bedside with opportunity for questions. Addendum: 08/10/21 at 2300 by [email or web address] AFSHIN Martin
[2021-08-10 23:48] VITALS: BP_SYST 135
[2021-08-11] VITALS: BP_SYST 112
[2021-08-11 03:32] VITALS: BP_SYST 135
--- NOTE | 2021-08-11 04:28 | NUR ---
CONSULTATION PAGED/CALLED Reason for Consultation: ABD PAIN. ASCITES Person Who was Notified: MADALYN Consulting Physician: DR.SIDHOM MUHAMMAD FOR Business Agent Specialty: GI Ordering Physician:
[2021-08-11] MEDS: metroNIDAZOLE 500 mg/NS 100 ML IV SCH ×2 (10:16→21:00)
--- NOTE | 2021-08-11 10:21 | NUR ---
CONSULTATION PAGED REASON FOR CONSULTATION:LEUKOCYTOSIS WAS CONSULT CALED?Y PERSON WHO WAS NOTIFIEDJENNIFER: CONSULTING PHYSICIAN:DALI SHERWOOD ASSOCIATE PROFESSOR OF SOCIOLOGY SPECIALTY:INFEXTIOUS DISEASE ASSOCIATE PROFESSOR OF SOCIOLOGY PHONE NUMBER:[phone] REQUESTING PHYSICIAN:NICKO FISCHER
[2021-08-11] MEDS ORDERED: HYDROcodone/ACETAMIN 5-325 MG TAB (NORCO/ VICODIN) PO PRN (10:30)
[2021-08-11] MEDS ORDERED: ONDANSETRON HCL 4 MG/2 ML VIAL IVP PRN (10:30)
[2021-08-11] MEDS ORDERED: LORazepam 2 MG/ML VIAL IVP PRN (10:30)
[2021-08-11] MEDS ORDERED: ACETAMINOPHEN 325 MG TABLET PO PRN ×2 (10:30→10:45)
[2021-08-11] MEDS ORDERED: NALOXONE HCL 0.4 MG/ML AMP (NARCAN) IVP PRN ×2 (10:30)
--- NOTE | 2021-08-11 10:50 | NUR ---
PARACENTHESIS ATTEMPTED BUT NO FLUID REMOVED. PT IN NO DISTRESS
--- NOTE | 2021-08-11 11:05 | NUR ---
RECEIVED A CALL FROM DR. PAIGE-RADIOLOGIST THAT PARACENTESIS DONE BUT THERE WAS NO ENOUGH FLUID TO DRAIN. CHARGE NURSE MADE AWARE.
[2021-08-11 11:06] VITALS: BP_SYST 125
[2021-08-11 11:34] VITALS: BP_SYST 142
[2021-08-11] MEDS ORDERED: NORMAL SALINE 5 ML DISP.SYRIN IVF SCH (14:00)
[2021-08-11] MEDS: NORMAL SALINE 5 ML DISP.SYRIN IVF SCH ×2 (14:00→21:01)
[2021-08-11 15:14] VITALS: BP_SYST 107
--- NOTE | 2021-08-11 15:31 | NUR ---
PT RESTING AT THIS TIME. NO DISTRESS NOTED. NO C/O PAIN OR DISCOMFORT.
--- NOTE | 2021-08-11 17:55 | NUR ---
REMAINS IN NO DISTRESS, ALERT AND ORIENTED. NO CHANGES IN VS. NO C/O PAIN OR DISCOMFORT. HL TO LT HAND PATENT. CALL LIGHT WITHIN REACH. WILL BE ENDORSED TO INCOMING SHIFT.
[2021-08-11 20:00] VITALS: BP_SYST 100
[2021-08-11] MEDS: HYDROcodone/ACETAMIN 10-325 MG TAB PO PRN (21:06)
[2021-08-12] MEDS: NORMAL SALINE 5 ML DISP.SYRIN IVF SCH ×3 (06:15→21:26)
--- NOTE | 2021-08-12 06:40 | NUR ---
Pt is currently on Synthroid. Pt stated that he is taking 250mg total. In the pyxis there is only availiable 0.25mg so he got a total of 10 tabs which equals 250mg
[2021-08-12] MEDS ORDERED: LEVOTHYROXINE SODIUM 0.025 MG TABLET PO SCH (07:00)
--- NOTE | 2021-08-12 07:51 | NUR ---
OPENING NOTES: PATIENT RESTING IN BED. BREATHING EVEN AND NON LABORED AT RA. DENIES ANY DISCOMFORT AT THIS TIME. FALL AND SAFETY MEASURES REINFORCED. CALL LIGHT WITHIN REACH.
[2021-08-12 07:56] VITALS: BP_SYST 137
[2021-08-12 08:05] LABS: BASOPHILS # (AUTO) 0.1 K/uL (0.0-0.2); BASOPHILS % (AUTO) 0.3 % (0.0-2.0); EOSINOPHILS # (AUTO) 11.7 K/uL (0.0-0.4); EOSINOPHILS % (AUTO) 63.1 % (0.0-4.0); HEMATOCRIT 44.3 % (36-54); HEMOGLOBIN 14.8 g/dL (14.0-18.0); LYMPHOCYTES # (AUTO) 1.7 K/uL (1.0-5.5); LYMPHOCYTES % (AUTO) 9.4 % (20.5-51.5); MEAN CORPUSCULAR HEMOGLOBIN 30 pg (27-31); MEAN CORPUSCULAR HGB CONC 33 % (32-36); MEAN CORPUSCULAR VOLUME 89 fL (79.0-98.0); MONOCYTES # (AUTO) 0.7 K/uL (0.0-1.0); MONOCYTES % (AUTO) 3.5 % (1.7-9.3); NEUTROPHILS # (AUTO) 4.4 K/uL (1.8-7.7); NEUTROPHILS % (AUTO) 23.7 % (40.0-70.0); PLATELET COUNT (AUTO) 221 K/uL (130-430); RED BLOOD CELL COUNT(AUTO) 4.99 MIL/uL (4.2-6.2); RED CELL DISTRIBUTION WIDTH 16.1 % (9.0-15.0); WHITE BLOOD COUNT (AUTO) 18.5 K/uL (4.8-10.8)
[2021-08-12 09:01] LABS: CALCIUM 7.7 mg/dL (8.4-11.0); CREATININE 1.27 mg/dL (0.55-1.30); POTASSIUM 3.7 mmol/L (3.5-5.1)
[2021-08-12] MEDS: LOSARTAN POTASSIUM 50 MG TABLET (COZAAR) PO SCH (09:15)
[2021-08-12] MEDS: metroNIDAZOLE 500 mg/NS 100 ML IV SCH ×2 (09:16→20:35)
[2021-08-12 12:00] VITALS: BP_SYST 132
[2021-08-12 16:00] VITALS: BP_SYST 134
--- NOTE | 2021-08-12 16:30 | NUR ---
Dietitian Recommendations * Continue [address] Please refer to Nutrition Assessment for details. Addendum: 08/12/21 at [address] Amended: Links added.
[2021-08-12 18:14] LABS: BARBITURATE, URINE NEGATIVE (NEG <=200); BENZODIAZEPINE, URINE NEGATIVE (NEG <=150); CANNABINOID, URINE NEGATIVE (NEG <=50); COCAINE, URINE NEGATIVE (NEG <=150); METHAMPHETAMINES SCREEN,URINE NEGATIVE (NEG <=500); OPIATE, URINE POSITIVE (NEG <=100); PHENCYCLIDINE SCREEN,URINE NEGATIVE (NEG <=25); UR TRICYCLIC ANTIDEPRESSANTS NEGATIVE (NEG <=300); URINE AMPHETAMINE NEGATIVE (NEG <=500); URINE METHADONE NEGATIVE (NEG <=200); URINE OXYCODONE SCREEN NEGATIVE (NEG <=100); URINE PROPOXYPHENE SCREEN NEGATIVE (NEG <=300)
--- NOTE | 2021-08-12 19:25 | NUR ---
CLOSING NOTES: PATIENT RESTING IN BED. NO S/S OF ACUTE DISTRESS NOTED. FALL AND SAFETY MEASURES RENDERED. CALL LIGHT WITHIN REACH. ENDORSED TO ADDICTIONS THERAPIST RN.
[2021-08-12 20:32] VITALS: BP_SYST 145
[2021-08-13 00:30] VITALS: BP_SYST 116
[2021-08-13] MEDS: NORMAL SALINE 5 ML DISP.SYRIN IVF SCH ×3 (06:12→22:38)
--- NOTE | 2021-08-13 07:45 | NUR ---
OPENING NOTES: PATIENT EATING BREAKFAST. BREATHING EVEN AND NON LABORED AT RA. DENIES ANY DISCOMFORT AT THIS TIME. FALL AND SAFETY MEASURES REINFORCED. CALL LIGHT WITHIN REACH
[2021-08-13 08:00] VITALS: BP_SYST 137
[2021-08-13] MEDS: LOSARTAN POTASSIUM 50 MG TABLET (COZAAR) PO SCH (09:04)
[2021-08-13] MEDS: metroNIDAZOLE 500 mg/NS 100 ML IV SCH ×2 (09:06→20:01)
[2021-08-13 12:05] VITALS: BP_SYST 128
--- NOTE | 2021-08-13 13:00 | NUR ---
RN NOTES: PATIENT IS WALKING. DENIES ANY DISCOMFORT AT THIS TIME. NO S/S OF ACUTE DISTRESS NOTED. FALL AND SAFETY MEASURES PROVIDED.
[2021-08-13 16:55] VITALS: BP_SYST 112
--- NOTE | 2021-08-13 18:25 | NUR ---
CLOSING NOTES: PATIENT EATING. NO S/S OF ACUTE DISTRESS NOTED. AT BEDSIDE. FALL AND SAFETY MEASURES RENDERED. CALL LIGHT WITHIN REACH. WILL CONTINUE MONITOR UNTIL ENDORSE TO INFANTRY INDIRECT FIRE CREWMEMBER RN.
[2021-08-13 20:17] VITALS: BP_SYST 115
[2021-08-14 00:27] VITALS: BP_SYST 127
[2021-08-14] MEDS: NORMAL SALINE 5 ML DISP.SYRIN IVF SCH ×3 (05:55→22:01)
[2021-08-14] MEDS: LEVOTHYROXINE SODIUM 0.1 MG TABLET PO SCH (06:00)
[2021-08-14 07:20] LABS: ANION GAP 10 (5-15); CHLORIDE 103 mmol/L (98-107); CREATININE 1.02 mg/dL (0.55-1.30); GLUCOSE 88 mg/dL (70-99); SODIUM SERUM 139 mmol/L (136-145); UREA NITROGEN, BLOOD 6 mg/dL (8-21)
[2021-08-14 07:48] LABS: HEMATOCRIT 47.4 % (36-54); HEMOGLOBIN 15.8 g/dL (14.0-18.0); MEAN CORPUSCULAR HEMOGLOBIN 30 pg (27-31); MEAN CORPUSCULAR HGB CONC 33 % (32-36); MEAN CORPUSCULAR VOLUME 90 fL (79.0-98.0); PLATELET COUNT (AUTO) 203 K/uL (130-430); RED CELL DISTRIBUTION WIDTH 16.2 % (9.0-15.0); WHITE BLOOD COUNT (AUTO) 17.3 K/uL (4.8-10.8)
[2021-08-14 07:51] LABS: GFR AFRICAN AMERICAN 99 mL/min (>90)
[2021-08-14 08:00] VITALS: BP_SYST 141
[2021-08-14 08:02] LABS: C-REACTIVE PROTEIN QUANT < 0.2 mg/dL (0-0.5)
[2021-08-14] MEDS: LOSARTAN POTASSIUM 50 MG TABLET (COZAAR) PO SCH (08:52)
[2021-08-14] MEDS: metroNIDAZOLE 500 mg/NS 100 ML IV SCH ×3 (08:52→22:01)
[2021-08-14 09:26] LABS: ERYTHROCYTE SEDIMENTATION RATE 1 MM/HR (0-15)
[2021-08-14 12:00] VITALS: BP_SYST 132
[2021-08-14 13:52] LABS: ATYPICAL LYMPHOCYTES % 0 % (0-0); BAND % (MANUAL) 0 % (0-6); BASOPHILS % (MANUAL) 0 % (0-2); EOSINOPHILS % (MANUAL) 69 % (0-7); LYMPHOCYTES % (MANUAL) 12 % (20-46); MONOCYTES % (MANUAL) 3 % (0-11)
[2021-08-14 16:00] VITALS: BP_SYST 123
[2021-08-14 20:00] VITALS: BP_SYST 121
[2021-08-15 00:02] VITALS: BP_SYST 147
[2021-08-15] MEDS: NORMAL SALINE 5 ML DISP.SYRIN IVF SCH ×3 (06:10→22:28)
[2021-08-15] MEDS: metroNIDAZOLE 500 mg/NS 100 ML IV SCH ×3 (06:19→22:28)
[2021-08-15] MEDS: LEVOTHYROXINE SODIUM 0.1 MG TABLET PO SCH (06:19)
[2021-08-15 07:17] LABS: BASOPHILS # (AUTO) 0.1 K/uL (0.0-0.2); BASOPHILS % (AUTO) 0.5 % (0.0-2.0); EOSINOPHILS # (AUTO) 10.8 K/uL (0.0-0.4); HEMATOCRIT 44.3 % (36-54); HEMOGLOBIN 14.7 g/dL (14.0-18.0); LYMPHOCYTES # (AUTO) 1.6 K/uL (1.0-5.5); LYMPHOCYTES % (AUTO) 9.8 % (20.5-51.5); MEAN CORPUSCULAR HEMOGLOBIN 30 pg (27-31); MEAN CORPUSCULAR HGB CONC 33 % (32-36); MEAN CORPUSCULAR VOLUME 89 fL (79.0-98.0); MONOCYTES # (AUTO) 0.5 K/uL (0.0-1.0); MONOCYTES % (AUTO) 3.3 % (1.7-9.3); NEUTROPHILS # (AUTO) 2.9 K/uL (1.8-7.7); NEUTROPHILS % (AUTO) 18.4 % (40.0-70.0); PLATELET COUNT (AUTO) 187 K/uL (130-430); RED BLOOD CELL COUNT(AUTO) 4.95 MIL/uL (4.2-6.2); RED CELL DISTRIBUTION WIDTH 16.8 % (9.0-15.0); WHITE BLOOD COUNT (AUTO) 15.9 K/uL (4.8-10.8)
[2021-08-15 07:34] LABS: ANION GAP 10 (5-15); CHLORIDE 103 mmol/L (98-107); CREATININE 0.96 mg/dL (0.55-1.30); GLUCOSE 88 mg/dL (70-99); POTASSIUM 3.8 mmol/L (3.5-5.1); SODIUM SERUM 138 mmol/L (136-145); UREA NITROGEN, BLOOD 8 mg/dL (8-21)
[2021-08-15 08:00] VITALS: BP_SYST 109
[2021-08-15 08:34] LABS: C-REACTIVE PROTEIN QUANT < 0.2 mg/dL (0-0.5); GFR AFRICAN AMERICAN 106 mL/min (>90)
[2021-08-15] MEDS: LOSARTAN POTASSIUM 50 MG TABLET (COZAAR) PO SCH (08:48)
[2021-08-15 09:53] LABS: ERYTHROCYTE SEDIMENTATION RATE 1 MM/HR (0-15)
[2021-08-15] MEDS: SIMETHICONE 80 MG TAB.CHEW PO SCH ×4 (11:51→22:27)
[2021-08-15 12:00] VITALS: BP_SYST 112
--- NOTE | 2021-08-15 19:38 | NUR ---
ENDORSEMENT BEDSIDE SHIFT REPORT GIVEN TO NIGHT RN FOR CONTINUATION OF CARE
[2021-08-15 20:18] VITALS: BP_SYST 143
[2021-08-16 00:42] VITALS: BP_SYST 139
[2021-08-16] MEDS: NORMAL SALINE 5 ML DISP.SYRIN IVF SCH ×3 (06:25→21:58)
[2021-08-16] MEDS: metroNIDAZOLE 500 mg/NS 100 ML IV SCH ×3 (06:25→21:58)
[2021-08-16] MEDS: LEVOTHYROXINE SODIUM 0.1 MG TABLET PO SCH (06:26)
[2021-08-16 07:30] LABS: BASOPHILS # (AUTO) 0.1 K/uL (0.0-0.2); BASOPHILS % (AUTO) 0.4 % (0.0-2.0); EOSINOPHILS # (AUTO) 9.6 K/uL (0.0-0.4); EOSINOPHILS % (AUTO) 67.8 % (0.0-4.0); HEMOGLOBIN 14.8 g/dL (14.0-18.0); LYMPHOCYTES # (AUTO) 1.6 K/uL (1.0-5.5); LYMPHOCYTES % (AUTO) 11.1 % (20.5-51.5); MEAN CORPUSCULAR HEMOGLOBIN 30 pg (27-31); MEAN CORPUSCULAR HGB CONC 34 % (32-36); MEAN CORPUSCULAR VOLUME 89 fL (79.0-98.0); MONOCYTES # (AUTO) 0.5 K/uL (0.0-1.0); MONOCYTES % (AUTO) 3.5 % (1.7-9.3); NEUTROPHILS # (AUTO) 2.4 K/uL (1.8-7.7); NEUTROPHILS % (AUTO) 17.2 % (40.0-70.0); PLATELET COUNT (AUTO) 178 K/uL (130-430); RED BLOOD CELL COUNT(AUTO) 4.96 MIL/uL (4.2-6.2); RED CELL DISTRIBUTION WIDTH 16.5 % (9.0-15.0); WHITE BLOOD COUNT (AUTO) 14.2 K/uL (4.8-10.8)
[2021-08-16 07:35] LABS: ALANINE AMINOTRANSFERASE 36 U/L (12-78); ANION GAP 6 (5-15); ASPARTATE AMINOTRANSFERASE 42 U/L (10-37); CHLORIDE 104 mmol/L (98-107); CREATININE 0.88 mg/dL (0.55-1.30); GLUCOSE 92 mg/dL (70-99); POTASSIUM 3.8 mmol/L (3.5-5.1); SODIUM SERUM 136 mmol/L (136-145); TOTAL BILIRUBIN 0.5 mg/dL (0.0-1.0); UREA NITROGEN, BLOOD 8 mg/dL (8-21)
[2021-08-16 07:42] LABS: C-REACTIVE PROTEIN QUANT < 0.2 mg/dL (0-0.5); GFR AFRICAN AMERICAN 117 mL/min (>90)
--- NOTE | 2021-08-16 08:00 | NUR ---
OPENING NOTES: PATIENT EATING BREAKFAST. BREATHING EVEN AND NON LABORED AT RA. FALL AND SAFETY MEASURES REINFORCED. CALL LIGHT WITHIN REACH
[2021-08-16] MEDS: SIMETHICONE 80 MG TAB.CHEW PO SCH ×4 (08:46→21:58)
[2021-08-16] MEDS: LOSARTAN POTASSIUM 50 MG TABLET (COZAAR) PO SCH (08:46)
[2021-08-16 10:55] LABS: ERYTHROCYTE SEDIMENTATION RATE 1 MM/HR (0-15)
[2021-08-16 12:00] VITALS: BP_SYST 132
[2021-08-16] MEDS ORDERED: DICYCLOMINE HCL 10 MG CAPSULE PO ONE (12:30)
[2021-08-16 16:20] VITALS: BP_SYST 128
--- NOTE | 2021-08-16 19:04 | NUR ---
CLOSING NOTES: PATIENT RESTING IN BED. NO S/S OF ACUTE DISTRESS NOTED. FALL AND SAFETY MEASURES RENDERED. CALL LIGHT WITHIN REACH. WILL CONTINUE MONITOR UNTIL ENDORSE TO BARGAIN TABLE CLERK RN.
[2021-08-16 19:59] VITALS: BP_SYST 136
[2021-08-16] MEDS: DICYCLOMINE HCL 10 MG CAPSULE PO SCH (21:57)
[2021-08-17 00:30] VITALS: BP_SYST 102
[2021-08-17] MEDS: metroNIDAZOLE 500 mg/NS 100 ML IV SCH ×3 (06:17→22:38)
[2021-08-17] MEDS: NORMAL SALINE 5 ML DISP.SYRIN IVF SCH ×3 (06:17→22:38)
[2021-08-17] MEDS: LEVOTHYROXINE SODIUM 0.1 MG TABLET PO SCH (06:18)
[2021-08-17] MEDS: LOSARTAN POTASSIUM 50 MG TABLET (COZAAR) PO SCH (08:04)
[2021-08-17] MEDS: SIMETHICONE 80 MG TAB.CHEW PO SCH ×4 (08:04→22:38)
[2021-08-17] MEDS: DICYCLOMINE HCL 10 MG CAPSULE PO SCH ×2 (08:04→22:39)
[2021-08-17 08:11] VITALS: BP_SYST 122
--- NOTE | 2021-08-17 08:12 | NUR ---
OPENING NOTES: PATIENT EATING BREAKFAST. BREATHING EVEN AND NON LABORED AT RA. C/O BEING NAUSEATED AND ABDOMINAL DISCOMFORT. PRN MEDS GIVEN. FALL AND SAFETY MEASURES REINFORCED. CALL LIGHT WITHIN REACH
[2021-08-17 10:20] VITALS: BP_SYST 117; BP_SYST 121; BP_SYST 128
[2021-08-17 11:32] VITALS: BP_SYST 109
[2021-08-17 15:28] VITALS: BP_SYST 110
--- NOTE | 2021-08-17 19:20 | NUR ---
CLOSING NOTES: PATIENT RESTING IN BED. NO SIGNS OF ACUTE DISTRESS NOTED. FALL AND SAFETY MEASURES PROVIDED. CALL LIGHT WITHIN REACH. ENDORSED TO LINE UP WORKER RN.
[2021-08-17 20:20] VITALS: BP_SYST 130
[2021-08-18] VITALS (8 sets, daily range): BP systolic 116–166
[2021-08-18] MEDS: LEVOTHYROXINE SODIUM 0.1 MG TABLET PO SCH (06:14)
[2021-08-18] MEDS: NORMAL SALINE 5 ML DISP.SYRIN IVF SCH ×3 (06:22→21:32)
[2021-08-18] MEDS: metroNIDAZOLE 500 mg/NS 100 ML IV SCH ×3 (06:22→21:32)
[2021-08-18] MEDS: HYDROcodone/ACETAMIN 10-325 MG TAB PO PRN ×2 (06:30→10:50)
--- NOTE | 2021-08-18 07:30 | NUR ---
Closing Patient AOx4, unlabored breathing on room air. Ambulatory with steady gait. Increased pain/bloating reported this morning, relieved when sitting up or lying on side. Given [place] PRN. Call light in reach, fall and safety precautions maintained. Care endorsed to day shift nurse.
[2021-08-18] MEDS: SIMETHICONE 80 MG TAB.CHEW PO SCH ×4 (10:04→21:31)
[2021-08-18] MEDS: DICYCLOMINE HCL 10 MG CAPSULE PO SCH ×2 (10:05→21:31)
[2021-08-18] MEDS: LOSARTAN POTASSIUM 50 MG TABLET (COZAAR) PO SCH (10:07)
[2021-08-19] MEDS: metroNIDAZOLE 500 mg/NS 100 ML IV SCH ×3 (06:01→23:12)
[2021-08-19] MEDS: LEVOTHYROXINE SODIUM 0.1 MG TABLET PO SCH (06:01)
[2021-08-19] MEDS: NORMAL SALINE 5 ML DISP.SYRIN IVF SCH ×3 (06:01→23:12)
[2021-08-19 07:00] LABS: INR 1.2 (0.80-1.20); PROTHROMBIN TIME 11.9 SECS (9.5-12.5)
[2021-08-19 07:07] LABS: ALBUMIN 3.3 g/dL (3.4-4.8); CALCIUM 8.5 mg/dL (8.4-11.0); CREATININE 0.85 mg/dL (0.55-1.30); POTASSIUM 4.1 mmol/L (3.5-5.1); TOTAL BILIRUBIN 0.6 mg/dL (0.0-1.0)
[2021-08-19 07:34] LABS: BASOPHILS % (AUTO) 0.3 % (0.0-2.0); EOSINOPHILS # (AUTO) 10.1 K/uL (0.0-0.4); EOSINOPHILS % (AUTO) 66.1 % (0.0-4.0); HEMOGLOBIN 15.9 g/dL (14.0-18.0); LYMPHOCYTES # (AUTO) 1.9 K/uL (1.0-5.5); LYMPHOCYTES % (AUTO) 12.2 % (20.5-51.5); MEAN CORPUSCULAR HEMOGLOBIN 30 pg (27-31); MEAN CORPUSCULAR HGB CONC 33 % (32-36); MEAN CORPUSCULAR VOLUME 90 fL (79.0-98.0); MONOCYTES # (AUTO) 0.5 K/uL (0.0-1.0); MONOCYTES % (AUTO) 3.3 % (1.7-9.3); NEUTROPHILS # (AUTO) 2.8 K/uL (1.8-7.7); PLATELET COUNT (AUTO) 182 K/uL (130-430); RED BLOOD CELL COUNT(AUTO) 5.33 MIL/uL (4.2-6.2); RED CELL DISTRIBUTION WIDTH 17.1 % (9.0-15.0); WHITE BLOOD COUNT (AUTO) 15.3 K/uL (4.8-10.8)
[2021-08-19 08:00] VITALS: BP_SYST 136
[2021-08-19] MEDS ORDERED: MEPERIDINE 100 MG INJ. 100 MG/ML VIAL ONE ×2 (08:22→10:59)
[2021-08-19] MEDS ORDERED: MIDAZOLAM HCL 5 MG/5 ML VIAL ONE ×2 (08:22→10:59)
--- NOTE | 2021-08-19 10:12 | NUR ---
PT S/L AND TAKEN FOR EGE, MORNING MEDS HELD UNTIL AFTER PROCEDURE.
[2021-08-19] MEDS ORDERED: DIPHENHYDRAMINE INJ 50 MG/ML VIAL ONE (11:03)
[2021-08-19 11:56] LABS: NEUTROPHILS % (AUTO) 18.1 % (40.0-70.0)
[2021-08-19 12:00] VITALS: BP_SYST 115
[2021-08-19] MEDS: HYDROcodone/ACETAMIN 10-325 MG TAB PO PRN (12:15)
[2021-08-19] MEDS: SIMETHICONE 80 MG TAB.CHEW PO SCH ×4 (12:26→23:11)
[2021-08-19] MEDS: DICYCLOMINE HCL 10 MG CAPSULE PO SCH ×2 (12:27→23:11)
[2021-08-19] MEDS: LOSARTAN POTASSIUM 50 MG TABLET (COZAAR) PO SCH (12:28)
[2021-08-19] MEDS ORDERED: IOHEXOL 350 mgI/mL, 150 ML INFUS..BTL IV ONE (14:15)
--- NOTE | 2021-08-19 15:12 | NUR ---
PT TAKEN TO CTA AT THIS TIME. S/L.
[2021-08-19 16:00] VITALS: BP_SYST 104
--- NOTE | 2021-08-19 18:46 | NUR ---
RECEIVED PT FROM AFSHIN ESTRADA. ASSUMED ALL CARE
--- NOTE | 2021-08-19 19:38 | NUR ---
ENDORSED ALL CARE TO AFSHIN ACMP. ALL QUESTIONS AND CONCERNS ADDRESSED.
[2021-08-19 20:35] VITALS: BP_SYST 118
[2021-08-20 00:27] VITALS: BP_SYST 109
[2021-08-20] MEDS: LEVOTHYROXINE SODIUM 0.1 MG TABLET PO SCH (06:37)
[2021-08-20] MEDS: HYDROcodone/ACETAMIN 10-325 MG TAB PO PRN (06:40)
[2021-08-20] MEDS: NORMAL SALINE 5 ML DISP.SYRIN IVF SCH ×2 (06:42→15:21)
[2021-08-20] MEDS: metroNIDAZOLE 500 mg/NS 100 ML IV SCH ×2 (06:43→15:21)
--- NOTE | 2021-08-20 07:33 | NUR ---
Closing Patient AOx4, ambulatory with steady gait. Tolerating liquid diet with no nausea or vomiting, but did report increased pain this morning. Given Edgar PRN. Antibiotics administered as ordered. Safety precautions maintained. Report given to day shift nurse.
--- NOTE | 2021-08-20 07:37 | NUR ---
DR. HINDS MET WITH PT AND STATED HE IS CLEAR TO GO HOME ONCE THE ATTENDING PHYSICIAN CLEARS HIM. ADVANCE DIET TO CARDIAC REGULAR TEXTURE. ORDER CARRIED OUT.
[2021-08-20] MEDS: DICYCLOMINE HCL 10 MG CAPSULE PO SCH (09:47)
[2021-08-20] MEDS: SIMETHICONE 80 MG TAB.CHEW PO SCH ×3 (09:47→17:25)
[2021-08-20] MEDS: LOSARTAN POTASSIUM 50 MG TABLET (COZAAR) PO SCH (09:48)
[2021-08-20] MEDS ORDERED: DICY10CA13 PO (10:56)
[2021-08-20] MEDS ORDERED: OMEP20TA20 PO (10:56)
[2021-08-20 16:51] VITALS: BP_SYST 120
--- NOTE | 2021-08-20 18:00 | NUR ---
PT DISCHARGE TO HOME IN NO DISTRESS, DISCHARGE INSTRUCTIONS REVIEWED WITH PT. PT EDUCATED THAT HIS PRESCRITIONS HAVE SENT TO HIS INDICATED PHARMACY. IV CATH T LH REMOVED INTACT. SITE WNL. COVERED WITH GAUZE AND BANDAID. PT DENIES PAIN UPON DISCHARGE. PT TAKEN TO LOBBY IN W/C, PT DENIES PAIN UPON DISCHARGE.
== END 2021-08-20 17:30 | disposition home or self-care (01) | DRG 872 ==
LOC: SED 11:49 → SMU 20:03
PROVIDERS: ADMIT Internal Medicine Hospice and Palliative Medicine; ATTEND Internal Medicine Hospice and Palliative Medicine
PROC: 0W9G3ZZ Drainage of Peritoneal Cavity, Percutaneous Approach (ICD-10-PCS; 2021-08-11)
PROC: 0DB78ZX Excision of Stomach, Pylorus, Via Natural or Artificial Opening Endoscopic, Diagnostic (ICD-10-PCS; 2021-08-19)
PROC: 0DB68ZX Excision of Stomach, Via Natural or Artificial Opening Endoscopic, Diagnostic (ICD-10-PCS; 2021-08-19)
PROC: 0DB98ZX Excision of Duodenum, Via Natural or Artificial Opening Endoscopic, Diagnostic (ICD-10-PCS; principal; 2021-08-19 11:00)
DX: A41.9 Sepsis, unspecified organism (principal); E44.0 Moderate protein-calorie malnutrition; R18.8 Other ascites; K57.90 Diverticulosis of intestine, part unspecified, without perforation or abscess without bleeding; E83.52 Hypercalcemia; I10 Essential (primary) hypertension; E03.9 Hypothyroidism, unspecified; K80.20 Calculus of gallbladder without cholecystitis without obstruction; K31.7 Polyp of stomach and duodenum; Z20.822 Contact with and (suspected) exposure to COVID-19; K52.9 Noninfective gastroenteritis and colitis, unspecified; K29.80 Duodenitis without bleeding; K29.70 Gastritis, unspecified, without bleeding; Z72.0 Tobacco use; Z68.37 Body mass index [BMI] 37.0-37.9, adult; Z79.899 Other long term (current) drug therapy
CPT/HCPCS: 36415; 43239; 49083; 71045; 72191; 74018; 74175; 76376; 76700-TC; 76705; 80048; 80053; 80307; 81000; 82962; 83605; 83690; 85007; 85025; 85027; 85610-TC; 85651-TC; 86140; 87040; 87177; 88305; 88312; 88313; 93005; 96360; 96361; 99285; J0696; J1200; J1956; J2175; J2250; J2405; J3490; J7030; J7060; Q9967

== ENCOUNTER 2021-12-16 03:24 | Emergency (ER) | payer BC ==
[~2021-12-16] VITALS: Ht 167.6 cm; Wt 98.4 kg
[~2021-12-16 03:24] MED LIST changes: -BENI20 PO; +DICY10CA13 PO; -HYDR-3917 PO; -LEVO500T90 PO; -LEVOTHYROXINE PO; +LOSA50TA3 PO; -METR500T PO; +OMEP20TA20 PO; -ONDA4TAB5 PO
[2021-12-16 03:56] VITALS: BP_SYST 127
[2021-12-16] MEDS: GABAPENTIN 300 MG CAPSULE PO ONE (04:21)
[2021-12-16] MEDS: CYCLOBENZAPRINE HCL 10 MG TABLET (FLEXERIL) PO ONE (04:21)
[2021-12-16] MEDS: DIAZEPAM 5 MG TABLET (VALIUM) PO ONE (04:21)
[2021-12-16] MEDS: predniSONE 20 MG TABLET PO ONE (04:21)
[2021-12-16] MEDS ORDERED: NEU300 PO (04:40)
[2021-12-16] MEDS ORDERED: PRED20TA PO (04:40)
[2021-12-16] MEDS ORDERED: LIDOINT TP (04:40)
[2021-12-16] MEDS ORDERED: HYDR-3917 PO (04:41)
[2021-12-16] MEDS: MORPHINE 4 MG INJ. 4 MG/ML VIAL IM ONE (05:34)
[2021-12-16 06:12] VITALS: BP_SYST 112
== END 2021-12-16 06:55 | disposition home or self-care (01) ==
LOC: SED 03:24
DX: M54.16 Radiculopathy, lumbar region (principal); M54.50 Low back pain, unspecified; M79.661 Pain in right lower leg; I10 Essential (primary) hypertension; Z79.899 Other long term (current) drug therapy
CPT/HCPCS: 99284; 96372; J7512; J2270

== ENCOUNTER 2022-04-18 11:50 | Inpatient (IN) | payer BC ==
[~2022-04-18] VITALS: Ht 167.6 cm; Wt 107.0 kg
[~2022-04-18 11:50] MED LIST changes: +HYDR-3917 PO; +LIDOINT TP; +NEU300 PO; +PRED20TA PO
[2022-04-18 12:36] VITALS: BP_SYST 157
[2022-04-18 13:00] LABS: BASOPHILS % (AUTO) 0.3 % (0.0-2.0); EOSINOPHILS # (AUTO) 1.5 K/uL (0.0-0.4); EOSINOPHILS % (AUTO) 9.2 % (0.0-4.0); HEMATOCRIT 49.4 % (36-54); HEMOGLOBIN 16.6 g/dL (14.0-18.0); LYMPHOCYTES # (AUTO) 1.8 K/uL (1.0-5.5); LYMPHOCYTES % (AUTO) 10.9 % (20.5-51.5); MEAN CORPUSCULAR HEMOGLOBIN 31 pg (27-31); MEAN CORPUSCULAR HGB CONC 34 % (32-36); MEAN CORPUSCULAR VOLUME 91 fL (79.0-98.0); MONOCYTES # (AUTO) 1.1 K/uL (0.0-1.0); MONOCYTES % (AUTO) 6.5 % (1.7-9.3); NEUTROPHILS # (AUTO) 12.1 K/uL (1.8-7.7); NEUTROPHILS % (AUTO) 73.1 % (40.0-70.0); PLATELET COUNT (AUTO) 200 K/uL (130-430); RED BLOOD CELL COUNT(AUTO) 5.44 MIL/uL (4.2-6.2); RED CELL DISTRIBUTION WIDTH 14.7 % (9.0-15.0); WHITE BLOOD COUNT (AUTO) 16.5 K/uL (4.8-10.8)
[2022-04-18 13:12] LABS: ANION GAP 4 (5-15); CALCIUM 8.7 mg/dL (8.4-11.0); CHLORIDE 101 mmol/L (98-107); CREATININE 1.13 mg/dL (0.55-1.30); GLUCOSE 110 mg/dL (70-99); UREA NITROGEN, BLOOD 12 mg/dL (8-21)
[2022-04-18 13:18] LABS: GFR AFRICAN AMERICAN 88 mL/min (>90)
[2022-04-18 13:29] LABS: ACETONE, SERUM NEGATIVE (NEGATIVE)
[2022-04-18 13:34] LABS: ALANINE AMINOTRANSFERASE 26 U/L (12-78); ALBUMIN 3.7 g/dL (3.4-4.8); AMYLASE 228 U/L (0-100); ASPARTATE AMINOTRANSFERASE 22 U/L (10-37); LACTATE DEHYDROGENASE 196 U/L (85-227); LIPASE 2162 U/L (73-393); TOTAL BILIRUBIN 1.2 mg/dL (0.0-1.0)
[2022-04-18 13:41] LABS: BILIRUBIN,URINE 1+ (NEGATIVE); BLOOD, URINE NEGATIVE (NEGATIVE); GLUCOSE,URINE NEGATIVE (NEGATIVE); KETONES,URINE 2+ (NEGATIVE); LEUKOCYTE ESTERASE ,URINE NEGATIVE (NEGATIVE); NITRITE, URINE NEGATIVE (NEGATIVE); PROTEIN URINE 1+ (NEGATIVE)
[2022-04-18 13:43] LABS: CLARITY/URINE SLIGHTLY HAZY (CLEAR); COLOR,URINE AMBER (YELLOW)
[2022-04-18 13:47] LABS: BACTERIA,URINE FEW /HPF (None Seen); RBC,URINE NONE SEEN /HPF (0-3); WBC,URINE 0-3 /HPF (0-3)
[2022-04-18] MEDS ORDERED: DEXAMETHASONE SOD PHOSPHATE 4 MG/ML VIAL ONE (15:30)
[2022-04-18] MEDS ORDERED: ROCURONIUM BROMIDE 10 MG/ML (ZEMURON) ONE (15:30)
[2022-04-18] MEDS ORDERED: HYDROmorphone 2 MG/ML VIAL ONE (15:30)
[2022-04-18] MEDS ORDERED: MIDAZOLAM HCL 2 MG/2 ML VIAL (VERSED) ONE (15:30)
[2022-04-18] MEDS ORDERED: SEVOFLURANE 15 MIN GAS INH ONE (15:30)
[2022-04-18] MEDS ORDERED: PROPOFOL 200MG/ 20ML VIAL (DIPRIVAN) IV ONE (15:30)
[2022-04-18] MEDS: D5/0.45 NS 1,000 ML IV SCH (16:30)
[2022-04-18] MEDS ORDERED: ONDANSETRON HCL 4 MG/2 ML VIAL IVP ONE (17:45)
[2022-04-18] MEDS ORDERED: NACL 0.9% 1,000 ML IV ONE ×2 (17:45)
[2022-04-18] MEDS ORDERED: MORPHINE 4 MG INJ. 4 MG/ML VIAL IVP ONE (17:45)
[2022-04-18] MEDS ORDERED: LOSA50TA3 PO (18:58)
[2022-04-18] MEDS ORDERED: DICY10SO PO (18:58)
[2022-04-18] MEDS ORDERED: DICL75TA5 PO (18:58)
[2022-04-18] MEDS ORDERED: BACL10TA PO (18:58)
[2022-04-18] MEDS ORDERED: LEVO100T9 PO (18:58)
[2022-04-18] MEDS ORDERED: NEU400 PO (18:58)
[2022-04-18 21:30] VITALS: BP_SYST 132
[2022-04-18 21:39] VITALS: BP_SYST 132
[2022-04-18] MEDS ORDERED: HYDROcodone/ACETAMIN 5-325 MG TAB (NORCO/ VICODIN) PO PRN (21:45)
[2022-04-18] MEDS ORDERED: NALOXONE HCL 0.4 MG/ML AMP (NARCAN) IVP PRN ×2 (21:45→23:00)
[2022-04-18] MEDS ORDERED: LIDOCAINE TOPICAL OINT 5%, 35 GM TP PRN (21:45)
[2022-04-18] MEDS ORDERED: GABAPENTIN 300 MG CAPSULE PO PRN (21:45)
[2022-04-18] MEDS ORDERED: MORPHINE 4 MG INJ. 4 MG/ML VIAL IVP PRN (23:00)
[2022-04-19 01:00] VITALS: BP_SYST 135
[2022-04-19] MEDS: ONDANSETRON HCL 4 MG/2 ML VIAL IVP PRN (02:52)
[2022-04-19] MEDS: MORPHINE 2 MG/ML INJ. SYRINGE IVP PRN (02:54)
[2022-04-19 05:00] VITALS: BP_SYST 116
[2022-04-19 06:52] LABS: BASOPHILS % (AUTO) 0.2 % (0.0-2.0); EOSINOPHILS # (AUTO) 1.7 K/uL (0.0-0.4); EOSINOPHILS % (AUTO) 18.3 % (0.0-4.0); HEMATOCRIT 42.8 % (36-54); HEMOGLOBIN 14.5 g/dL (14.0-18.0); LYMPHOCYTES # (AUTO) 1.9 K/uL (1.0-5.5); LYMPHOCYTES % (AUTO) 20.5 % (20.5-51.5); MEAN CORPUSCULAR HEMOGLOBIN 31 pg (27-31); MEAN CORPUSCULAR HGB CONC 34 % (32-36); MEAN CORPUSCULAR VOLUME 91 fL (79.0-98.0); MONOCYTES # (AUTO) 0.8 K/uL (0.0-1.0); MONOCYTES % (AUTO) 8.2 % (1.7-9.3); NEUTROPHILS % (AUTO) 52.8 % (40.0-70.0); PLATELET COUNT (AUTO) 169 K/uL (130-430); RED BLOOD CELL COUNT(AUTO) 4.71 MIL/uL (4.2-6.2); RED CELL DISTRIBUTION WIDTH 14.7 % (9.0-15.0); WHITE BLOOD COUNT (AUTO) 9.5 K/uL (4.8-10.8)
[2022-04-19 07:07] LABS: ALBUMIN 2.9 g/dL (3.4-4.8); CALCIUM 7.9 mg/dL (8.4-11.0); CREATININE 0.98 mg/dL (0.55-1.30); TOTAL BILIRUBIN 1.1 mg/dL (0.0-1.0)
[2022-04-19 08:00] VITALS: BP_SYST 125
[2022-04-19] MEDS: DICLOFENAC SODIUM 25 MG TABLET.DR PO SCH ×2 (08:33→21:08)
[2022-04-19] MEDS: BACLOFEN 10 MG TABLET PO SCH ×3 (08:33→21:08)
[2022-04-19] MEDS: GABAPENTIN 400 MG CAPSULE PO SCH ×3 (08:33→21:07)
[2022-04-19] MEDS: predniSONE 20 MG TABLET PO SCH (08:33)
[2022-04-19] MEDS: DICYCLOMINE HCL 10 MG CAPSULE PO SCH ×2 (08:34→21:07)
[2022-04-19] MEDS: LOSARTAN POTASSIUM 50 MG TABLET (COZAAR) PO SCH (08:34)
[2022-04-19] MEDS ORDERED: LOSARTAN POTASSIUM 50 MG TABLET (COZAAR) PO SCH (09:00)
[2022-04-19] MEDS ORDERED: LEVOTHYROXINE SODIUM 0.025 MG TABLET PO SCH (09:00)
[2022-04-19] MEDS ORDERED: LEVOTHYROXINE SODIUM 0.1 MG TABLET PO ONE (10:00)
[2022-04-19 20:00] VITALS: BP_SYST 125
[2022-04-19] MEDS: D5/0.45 NS 1,000 ML IV SCH (22:30)
[2022-04-20] VITALS: BP_SYST 113
[2022-04-20] MEDS: LEVOTHYROXINE SODIUM 0.1 MG TABLET PO SCH (06:36)
[2022-04-20 06:37] LABS: CREATININE 0.91 mg/dL (0.55-1.30); TOTAL BILIRUBIN 0.8 mg/dL (0.0-1.0)
[2022-04-20] MEDS: predniSONE 20 MG TABLET PO SCH (09:24)
[2022-04-20] MEDS: BACLOFEN 10 MG TABLET PO SCH ×3 (09:24→21:12)
[2022-04-20] MEDS: DICYCLOMINE HCL 10 MG CAPSULE PO SCH ×2 (09:24→21:11)
[2022-04-20] MEDS: LOSARTAN POTASSIUM 50 MG TABLET (COZAAR) PO SCH (09:25)
[2022-04-20] MEDS: DICLOFENAC SODIUM 25 MG TABLET.DR PO SCH ×2 (09:26→21:12)
[2022-04-20] MEDS: D5/0.45 NS 1,000 ML IV SCH ×2 (09:26→17:17)
[2022-04-20] MEDS: GABAPENTIN 400 MG CAPSULE PO SCH (09:26)
[2022-04-20 10:31] VITALS: BP_SYST 119
[2022-04-20 11:17] LABS: INR 1.2 (0.80-1.20); PROTHROMBIN TIME 12.1 SECS (9.5-12.5)
[2022-04-20 11:27] VITALS: BP_SYST 126
[2022-04-20 12:56] LABS: BILIRUBIN,URINE NEGATIVE (NEGATIVE); BLOOD, URINE NEGATIVE (NEGATIVE); CLARITY/URINE CLEAR (CLEAR); COLOR,URINE YELLOW (YELLOW); GLUCOSE,URINE NEGATIVE (NEGATIVE); KETONES,URINE NEGATIVE (NEGATIVE); LEUKOCYTE ESTERASE ,URINE NEGATIVE (NEGATIVE); NITRITE, URINE NEGATIVE (NEGATIVE); PH,URINE 6.5 (5.0-8.0); PROTEIN URINE NEGATIVE (NEGATIVE)
[2022-04-20 15:30] VITALS: BP_SYST 131
[2022-04-20] MEDS: GABAPENTIN 300 MG CAPSULE PO SCH ×2 (15:36→21:12)
[2022-04-20 20:00] VITALS: BP_SYST 111
[2022-04-21] VITALS (10 sets, daily range): BP systolic 118–136
[2022-04-21] MEDS: D5/0.45 NS 1,000 ML IV SCH ×2 (03:54→14:10)
[2022-04-21 04:36] LABS: BASOPHILS % (AUTO) 0.3 % (0.0-2.0); EOSINOPHILS # (AUTO) 1.7 K/uL (0.0-0.4); EOSINOPHILS % (AUTO) 15.2 % (0.0-4.0); HEMATOCRIT 39.1 % (36-54); HEMOGLOBIN 13.3 g/dL (14.0-18.0); LYMPHOCYTES # (AUTO) 2.3 K/uL (1.0-5.5); LYMPHOCYTES % (AUTO) 20.6 % (20.5-51.5); MEAN CORPUSCULAR HEMOGLOBIN 31 pg (27-31); MEAN CORPUSCULAR HGB CONC 34 % (32-36); MEAN CORPUSCULAR VOLUME 91 fL (79.0-98.0); MONOCYTES # (AUTO) 0.8 K/uL (0.0-1.0); MONOCYTES % (AUTO) 7.1 % (1.7-9.3); NEUTROPHILS # (AUTO) 6.4 K/uL (1.8-7.7); NEUTROPHILS % (AUTO) 56.8 % (40.0-70.0); PLATELET COUNT (AUTO) 184 K/uL (130-430); RED BLOOD CELL COUNT(AUTO) 4.32 MIL/uL (4.2-6.2); RED CELL DISTRIBUTION WIDTH 14.6 % (9.0-15.0); WHITE BLOOD COUNT (AUTO) 11.3 K/uL (4.8-10.8)
[2022-04-21 05:01] LABS: ALBUMIN 3.1 g/dL (3.4-4.8); CALCIUM 8.2 mg/dL (8.4-11.0); CREATININE 0.97 mg/dL (0.55-1.30); TOTAL BILIRUBIN 0.4 mg/dL (0.0-1.0)
[2022-04-21] MEDS: LEVOTHYROXINE SODIUM 0.1 MG TABLET PO SCH (06:30)
[2022-04-21] MEDS: GABAPENTIN 300 MG CAPSULE PO SCH ×3 (08:45→21:06)
[2022-04-21] MEDS: LOSARTAN POTASSIUM 50 MG TABLET (COZAAR) PO SCH (08:45)
[2022-04-21] MEDS: BACLOFEN 10 MG TABLET PO SCH ×3 (08:45→21:05)
[2022-04-21] MEDS: predniSONE 20 MG TABLET PO SCH (08:45)
[2022-04-21] MEDS: DICYCLOMINE HCL 10 MG CAPSULE PO SCH ×2 (08:45→21:05)
[2022-04-21] MEDS: DICLOFENAC SODIUM 25 MG TABLET.DR PO SCH ×2 (08:46→21:05)
[2022-04-21] MEDS ORDERED: NALOXONE HCL 0.4 MG/ML AMP (NARCAN) IVP PRN ×2 (17:45)
[2022-04-21] MEDS ORDERED: ONDANSETRON HCL 4 MG/2 ML VIAL IVP PRN (17:45)
[2022-04-21] MEDS ORDERED: METOCLOPRAMIDE HCL 10 MG/2 ML VIAL IVP PRN (17:45)
[2022-04-21] MEDS ORDERED: HYDROmorphone 1 MG/ML INJ. CARTRIDGE IVP PRN ×2 (17:45)
[2022-04-21] MEDS ORDERED: HYDROmorphone 2 MG/ML VIAL IVP PRN (17:45)
[2022-04-21] MEDS ORDERED: HYDROmorphone 1 MG/ML INJ. CARTRIDGE ONE (18:18)
[2022-04-21] MEDS: ONDANSETRON HCL 4 MG/2 ML VIAL IVP PRN (21:06)
[2022-04-21] MEDS: PIPERACILLIN/TAZO 3.375/DEX-IS 50 ML IV SCH (23:48)
[2022-04-22] MEDS: D5/0.45 NS 1,000 ML IV SCH ×2 (00:05→10:30)
[2022-04-22] MEDS: PIPERACILLIN/TAZO 3.375/DEX-IS 50 ML IV SCH ×3 (05:31→17:57)
[2022-04-22] MEDS: ONDANSETRON HCL 4 MG/2 ML VIAL IVP PRN (05:44)
[2022-04-22] MEDS: MORPHINE 2 MG/ML INJ. SYRINGE IVP PRN (05:45)
[2022-04-22 06:45] LABS: BASOPHILS % (AUTO) 0.1 % (0.0-2.0); EOSINOPHILS # (AUTO) 0.6 K/uL (0.0-0.4); HEMATOCRIT 39.2 % (36-54); HEMOGLOBIN 13.3 g/dL (14.0-18.0); LYMPHOCYTES # (AUTO) 1.3 K/uL (1.0-5.5); LYMPHOCYTES % (AUTO) 10.7 % (20.5-51.5); MEAN CORPUSCULAR HEMOGLOBIN 31 pg (27-31); MEAN CORPUSCULAR HGB CONC 34 % (32-36); MEAN CORPUSCULAR VOLUME 92 fL (79.0-98.0); MONOCYTES # (AUTO) 0.8 K/uL (0.0-1.0); MONOCYTES % (AUTO) 6.5 % (1.7-9.3); NEUTROPHILS # (AUTO) 9.8 K/uL (1.8-7.7); NEUTROPHILS % (AUTO) 77.7 % (40.0-70.0); PLATELET COUNT (AUTO) 183 K/uL (130-430); RED BLOOD CELL COUNT(AUTO) 4.28 MIL/uL (4.2-6.2); RED CELL DISTRIBUTION WIDTH 14.8 % (9.0-15.0); WHITE BLOOD COUNT (AUTO) 12.6 K/uL (4.8-10.8)
[2022-04-22] MEDS ORDERED: LEVOTHYROXINE SODIUM 0.05 MG TABLET PO SCH (07:00)
[2022-04-22 07:59] LABS: ALBUMIN 3.1 g/dL (3.4-4.8); CALCIUM 8.1 mg/dL (8.4-11.0); CREATININE 1.01 mg/dL (0.55-1.30); TOTAL BILIRUBIN 0.4 mg/dL (0.0-1.0)
[2022-04-22] MEDS: DICLOFENAC SODIUM 25 MG TABLET.DR PO SCH (09:22)
[2022-04-22] MEDS: predniSONE 20 MG TABLET PO SCH (09:23)
[2022-04-22] MEDS: GABAPENTIN 300 MG CAPSULE PO SCH ×2 (09:23→14:59)
[2022-04-22] MEDS: DICYCLOMINE HCL 10 MG CAPSULE PO SCH (09:23)
[2022-04-22] MEDS: LOSARTAN POTASSIUM 50 MG TABLET (COZAAR) PO SCH (09:24)
[2022-04-22] MEDS: BACLOFEN 10 MG TABLET PO SCH ×2 (09:24→14:59)
[2022-04-22 09:25] VITALS: BP_SYST 121
[2022-04-22 12:20] VITALS: BP_SYST 133
[2022-04-22 16:00] VITALS: BP_SYST 109
[2022-04-22 16:49] VITALS: BP_SYST 109
[2022-04-22] MEDS ORDERED: SYN50 PO (17:37)
== END 2022-04-22 18:52 | disposition home or self-care (01) | DRG 417 ==
LOC: SED 11:50 → SMU 16:19
PROVIDERS: ADMIT Specialist; ATTEND Specialist
PROC: BF131ZZ Fluoroscopy of Gallbladder and Bile Ducts using Low Osmolar Contrast (ICD-10-PCS; 2022-04-21)
PROC: 0FT44ZZ Resection of Gallbladder, Percutaneous Endoscopic Approach (ICD-10-PCS; principal; 2022-04-21 15:26)
DX: K80.00 Calculus of gallbladder with acute cholecystitis without obstruction (principal); K85.10 Biliary acute pancreatitis without necrosis or infection; R18.8 Other ascites; I10 Essential (primary) hypertension; K76.0 Fatty (change of) liver, not elsewhere classified; K82.8 Other specified diseases of gallbladder; E03.9 Hypothyroidism, unspecified; M48.00 Spinal stenosis, site unspecified; E66.9 Obesity, unspecified; D72.829 Elevated white blood cell count, unspecified; G89.29 Other chronic pain; M54.9 Dorsalgia, unspecified; Z20.822 Contact with and (suspected) exposure to COVID-19; Z79.891 Long term (current) use of opiate analgesic; Z79.1 Long term (current) use of non-steroidal anti-inflammatories (NSAID); Z79.899 Other long term (current) drug therapy; Z68.38 Body mass index [BMI] 38.0-38.9, adult
CPT/HCPCS: 36415; 71045; 76000; 76376; 78226; 80053; 80061; 81000; 81003; 82009; 82150; 83605; 83615; 83690; 84443; 85025; 85610-TC; 85730-TC; 86140; 86886; 86900; 86901; 88304; 93005; 99285; A9537; J1100; J1170; J2270; J2405; J2543; J2704; J3465; J7050; J7512; Q9967

== ENCOUNTER 2022-05-09 02:22 | Inpatient (IN) | payer BC ==
[~2022-05-09] VITALS: Ht 167.6 cm; Wt 107.0 kg
[~2022-05-09 02:22] MED LIST changes: +BACL10TA PO; +DICL75TA5 PO; -LEVO25TA7 PO; +SYN50 PO
[2022-05-09] MEDS ORDERED: PROCHLORPERAZINE EDISYLATE 10 MG/2 ML VIAL IVP ONE (02:45)
[2022-05-09] MEDS ORDERED: MORPHINE 4 MG INJ. 4 MG/ML VIAL IVP ONE (02:45)
[2022-05-09] MEDS ORDERED: NACL 0.9% 1,000 ML IV ONE (02:45)
--- NOTE | 2022-05-09 02:45 | NUR ---
Patient triaged and placed in ED RM 3. VSS and patient appears in no acute distress at this time. MD TAYLOR notified of need for MSE. Report given to AFSHIN Gonzales.
--- NOTE | 2022-05-09 03:14 | NUR ---
# 20 gauge angiocath placed to R AC. Use of asceptic technique. Opsite placed over site. Blood return noted. Blood for lab drawn from site. Flushed with 10 cc of normal saline. No evidence of infiltration noted. Patient tolerated well.
--- NOTE | 2022-05-09 03:16 | NUR ---
S/P CHOLECYSTECTOMY ON 04/21/22; PT C/O LOWER ABD PAIN ASSOCIATED WITH ABD BLOATING, TROUBLE PASSING GAS, AND NAUSEA. DENIES VOMITING, FEVER LAST BM WAS 05/08; SMALL
--- NOTE | 2022-05-09 03:33 | NUR ---
LAB AT BEDSIDE
[2022-05-09 03:40] LABS: HEMATOCRIT 42.1 % (36-54); HEMOGLOBIN 14.2 g/dL (14.0-18.0); MEAN CORPUSCULAR HEMOGLOBIN 31 pg (27-31); MEAN CORPUSCULAR HGB CONC 34 % (32-36); MEAN CORPUSCULAR VOLUME 93 fL (79.0-98.0); PLATELET COUNT (AUTO) 227 K/uL (130-430); RED BLOOD CELL COUNT(AUTO) 4.55 MIL/uL (4.2-6.2); RED CELL DISTRIBUTION WIDTH 15.7 % (9.0-15.0); WHITE BLOOD COUNT (AUTO) 15.7 K/uL (4.8-10.8)
--- NOTE | 2022-05-09 03:52 | NUR ---
PATIENT TAKEN TO RADIOLOGY
[2022-05-09 03:55] LABS: CALCIUM 7.8 mg/dL (8.4-11.0)
[2022-05-09 04:00] LABS: ALBUMIN 2.6 g/dL (3.4-4.8); TOTAL BILIRUBIN 0.3 mg/dL (0.0-1.0)
--- NOTE | 2022-05-09 04:18 | NUR ---
PATIENT TAKEN TO CT
[2022-05-09 04:35] LABS: BASOPHILS % (MANUAL) 0 % (0-2); EOSINOPHILS % (MANUAL) 54 % (0-7); LYMPHOCYTES % (MANUAL) 12 % (20-46); MONOCYTES % (MANUAL) 5 % (0-11)
[2022-05-09 05:19] LABS: BILIRUBIN,URINE NEGATIVE (NEGATIVE); BLOOD, URINE NEGATIVE (NEGATIVE); CLARITY/URINE CLEAR (CLEAR); COLOR,URINE YELLOW (YELLOW); GLUCOSE,URINE NEGATIVE (NEGATIVE); KETONES,URINE NEGATIVE (NEGATIVE); LEUKOCYTE ESTERASE ,URINE NEGATIVE (NEGATIVE); NITRITE, URINE NEGATIVE (NEGATIVE); PROTEIN URINE NEGATIVE (NEGATIVE); UROBILINOGEN,URINE 0.2 (0.2-1.0)
--- NOTE | 2022-05-09 06:37 | NUR ---
Patient resting quietly. No acute distress noted. Vital signs within normal range.
--- NOTE | 2022-05-09 07:14 | NUR ---
RECEIVED PT FROM AFSHIN GALICIA. ASSUMED CARE. PT AAOX4. ON R/A. NORMAL S1S2. NPO WITH DX PANCREATITIS. DENIES N/V/D/C. DISTAL PULSES NORMAL. SKIN WARM, NO EDEMA. IV CATH 20G TO RAC. DENIES PAIN. SIDERAILS UP X2. BED IN LOWEST POSITION.
--- NOTE | 2022-05-09 07:57 | NUR ---
Admit bed requested Patient will be admitted to care of . Admitted to TELEMETRY unit. Diagnosis SBO, PANCREATITIS Inpatient (Yes or No) YES Observation (Yes or No) NO Orientation concerns or request close to nursing station (Yes or No) NONE Covid Status NEGATIVE On vent or bipap NO Isolation requirements NONE Needs a sitter NO From Home (Yes or if No enter name of facility) YES Requires Dialysis (Yes or No) NO Med Rec Completed (Yes of No) YES
[2022-05-09] MEDS ORDERED: HYDROmorphone 1 MG/ML INJ. CARTRIDGE IVP PRN (08:00)
[2022-05-09] MEDS ORDERED: D5/0.45 NS 1,000 ML IV ONE (08:00)
[2022-05-09] MEDS ORDERED: ONDANSETRON HCL 4 MG/2 ML VIAL IVP ONE (08:00)
--- NOTE | 2022-05-09 08:29 | NUR ---
DILAUDID 0.5MG IVP GIVEN FOR ABDOMINAL PAIN. ZOFRAN 4MG IVP GIVEN FOR NAUSEA. D5 1/2 NS AT 100 INITIATED.
[2022-05-09] MEDS ORDERED: MORPHINE 4 MG INJ. 4 MG/ML VIAL IVP PRN (09:15)
[2022-05-09] MEDS ORDERED: D5/0.45 NS 1,000 ML IV SCH (09:15)
[2022-05-09] MEDS ORDERED: ONDANSETRON HCL 4 MG/2 ML VIAL IVP PRN (09:15)
--- NOTE | 2022-05-09 09:19 | NUR ---
# 16 FR NG tube placed to LEFT nare. Placement checked by auscultation of instilled air into stomach and aspiration of gastric contents. Tubing taped in place to prevent dislodging. Patient tolerated WELL.
--- NOTE | 2022-05-09 09:19 | NUR ---
NGT PLACED TO INTERMITTENT SUCTION. 200CC YELLOW GASTRIC FLUID REMOVED.
--- NOTE | 2022-05-09 09:28 | NUR ---
DR. FERNANDO MET WITH AND ASSESSED PT.
--- NOTE | 2022-05-09 09:46 | NUR ---
REPORTED TO DR. FERNANDO PT HAS ORDER FOR XR SMALL BOWEL SERIES, PT HAS NGT PLACED WITH 300CC BILE REMOVED AND C/O N/V. RECEIVED ORDER TO DISCONTINUE SMALL BOWEL SERIES.
--- NOTE | 2022-05-09 09:55 | NUR ---
Patient will be admitted to care of AFSHIN ATKINS. Admitted to TELEMETRY unit. Will go to room 118B. Belongings list completed. Complete and up to date summary report printed. SBAR report to be given at bedside with opportunity for questions.
--- NOTE | 2022-05-09 10:25 | NUR ---
ADMISSION NOTES: RECEIVED PT FROM Arvind PT ADMITTED WITH DIAGNOSIS OF SMALL BOWEL OBSTRUCTION/PANCREATITIS. PT WILL BE UNDER THE CARE OF DR. CHOUDHARY. PT DENIES PAIN AT THIS TIME. PT HAS AN NGT ON THE LEFT NARE CONNECTED TO LIS, DRAINING BROWNISH LIQUID. PT EDUCATED ON THE USE OF CALL LIGHT, TV AND BED CONTROLS. ENCOURAGED TO CALL FOR ASSIST, PAIN MEDS OR ANY CONCERNS. WILL CONT TO MONITOR.
--- NOTE | 2022-05-09 10:26 | NUR ---
CONSULTATION REASON FOR CONSULT: SBO CONSULTING PHYSICIAN: KATYA ORDERED BY: DALLAS CHOUDHARY SPOKE WITH CHANCE [phone]
[2022-05-09 10:28] VITALS: BP_SYST 125
[2022-05-09 10:29] VITALS: BP_SYST 125
[2022-05-09 12:00] VITALS: BP_SYST 139
[2022-05-09 16:31] VITALS: BP_SYST 136
--- NOTE | 2022-05-09 17:59 | NUR ---
PT CONTINUED TO BE NPO, NGT INTACT AND CONNECTED TO LIS. 400 CC OUTPUT NOTED.
--- NOTE | 2022-05-09 17:59 | NUR ---
DR ALDANA HERE AND SEEN AND TALKED TO PT.
--- NOTE | 2022-05-09 18:18 | NUR ---
RACHEL BARNARD SAID THEY WILL DO THE SB FOLLOW THRU STUDIES IN AM.
[2022-05-09] MEDS: BENZOCAINE/MENTHOL 1 EACH LOZENGE MM PRN ×2 (18:25→22:34)
--- NOTE | 2022-05-09 18:25 | NUR ---
PT GIVEN CEPHACOL FOR SORE THROAT. INFOMRED PT THAT HE CAN HAVE IT EVERY 4 HOURS BUT HE HAS TO REQUEST FOR IT.
--- NOTE | 2022-05-09 19:15 | NUR ---
OPENING NOTES Patient resting in bed - no s/s pain or distress noted. Respirations even and unlabored - head of bed elevated. IV site patent - no s/s redness, infection, or infiltration. Bed locked and in lowest position. Call light within reach.
[2022-05-09 20:00] VITALS: BP_SYST 146
[2022-05-10] VITALS: BP_SYST 134
[2022-05-10] MEDS: BENZOCAINE/MENTHOL 1 EACH LOZENGE MM PRN (05:10)
[2022-05-10 06:57] LABS: BASOPHILS % (AUTO) 0.2 % (0.0-2.0); EOSINOPHILS % (AUTO) 51.3 % (0.0-4.0); HEMATOCRIT 46.5 % (36-54); HEMOGLOBIN 15.9 g/dL (14.0-18.0); LYMPHOCYTES # (AUTO) 1.5 K/uL (1.0-5.5); LYMPHOCYTES % (AUTO) 9.8 % (20.5-51.5); MEAN CORPUSCULAR HEMOGLOBIN 32 pg (27-31); MEAN CORPUSCULAR HGB CONC 34 % (32-36); MEAN CORPUSCULAR VOLUME 93 fL (79.0-98.0); MONOCYTES # (AUTO) 0.8 K/uL (0.0-1.0); MONOCYTES % (AUTO) 4.8 % (1.7-9.3); NEUTROPHILS # (AUTO) 5.3 K/uL (1.8-7.7); PLATELET COUNT (AUTO) 241 K/uL (130-430); RED BLOOD CELL COUNT(AUTO) 5.01 MIL/uL (4.2-6.2); RED CELL DISTRIBUTION WIDTH 15.6 % (9.0-15.0); WHITE BLOOD COUNT (AUTO) 15.6 K/uL (4.8-10.8)
[2022-05-10 07:01] LABS: CALCIUM 8.2 mg/dL (8.4-11.0); CREATININE 0.91 mg/dL (0.55-1.30); TOTAL BILIRUBIN 0.5 mg/dL (0.0-1.0)
[2022-05-10 07:37] LABS: NEUTROPHILS % (AUTO) 33.9 % (40.0-70.0)
[2022-05-10] MEDS ORDERED: GASTROGRAFIN 120 ML ONE (10:26)
--- NOTE | 2022-05-10 10:40 | NUR ---
PT TAKEN BY DANCE DIRECTOR TO XRAY DEPT FOR SMALL BOWEL SERIES.
[2022-05-10 11:26] VITALS: BP_SYST 136
--- NOTE | 2022-05-10 13:16 | NUR ---
Pt's ngt accidentally fall off when patient started vomiting.
--- NOTE | 2022-05-10 13:21 | NUR ---
TOLD PT THAT I HAVE TO PUT BACK THE NGT, PT REFUSED.
--- NOTE | 2022-05-10 16:15 | NUR ---
INFORMED DR ALDANA ABOUT THE RESULT OF THE SMALL BOWEL SERIES (NO SIGN OF SMALL BOWEL OBSTRUCTION). NEW ORDER GIVEN BY .
[2022-05-10] MEDS ORDERED: POTASSIUM CHLORIDE 20 MEQ TAB.PRT.SR PO ONE (16:30)
[2022-05-10 17:32] VITALS: BP_SYST 113
--- NOTE | 2022-05-10 19:05 | NUR ---
RECEIVED PT AOX4. EVEN AND UNLABORED BREATHING, V/S CHECKED AND STABLE. DENIED AND PAIN OR SOB. LOW BED, CALL LIGTH WITHIN REACH, WILL CONTINUE WITH PLAN OF CARE
[2022-05-10 21:16] VITALS: BP_SYST 123
[2022-05-10 21:17] VITALS: BP_SYST 123
[2022-05-11 00:16] VITALS: BP_SYST 127
--- NOTE | 2022-05-11 07:04 | NUR ---
RECEIVED PT AOX4. EVEN AND UNLABORED BREATHING, V/S CHECKED AND STABLE. DENIED ANY PAIN OR SOB. LOW BED, CALL LIGHT WITHIN REACH, WILL ENDORSE TO AM RN
[2022-05-11 08:00] VITALS: BP_SYST 133
[2022-05-11 13:49] VITALS: BP_SYST 120
--- NOTE | 2022-05-11 18:00 | NUR ---
pt A/Ox4,vss,changed to [facility] soft diet,pt said he had last BM was after radiology contrast done and liquids stool noted after that only passesd gas since this am and has abdomen distention noted needs attended,safety maintained.plan for d/c if cleared by surgical consult.continue to monitor pt.
[2022-05-11 19:05] VITALS: BP_SYST 136
--- NOTE | 2022-05-11 19:06 | NUR ---
RECEIVED PT IN BED, AOX4. EVEN AND UNLABORED BREATHING, V/S CHECKED AND STABLE. DENIED AND PAIN OR SOB. TOLERATING [facility] SOFT DIET, LOW BED, CALL LIGTH WITHIN REACH, WILL CONTINUE WITH PLAN OF CARE
[2022-05-11] MEDS ORDERED: HYDROcodone/ACETAMIN 5-325 MG TAB (NORCO/ VICODIN) PO PRN (19:15)
[2022-05-11] MEDS ORDERED: NALOXONE HCL 0.4 MG/ML AMP (NARCAN) IVP PRN (19:15)
[2022-05-11] MEDS: BACLOFEN 10 MG TABLET PO SCH (21:02)
[2022-05-12 00:12] VITALS: BP_SYST 108
--- NOTE | 2022-05-12 06:44 | NUR ---
RECEIVED PT IN BED, AOX4. EVEN AND UNLABORED BREATHING, V/S CHECKED AND STABLE. DENIED AND PAIN OR SOB. TOLERATING [facility] SOFT DIET, LOW BED, CALL LIGHT WITHIN REACH, WILL ENDORSE TO AM RN
[2022-05-12] MEDS ORDERED: LEVOTHYROXINE SODIUM 0.05 MG TABLET PO SCH (07:00)
[2022-05-12 08:00] VITALS: BP_SYST 140
--- NOTE | 2022-05-12 08:00 | NUR ---
OPENING NOTES AWAKE AND ORIENTED. NO SHORTNESS OF BREATH ON ROOM AIR. REPORTED ABDOMINAL PAIN THAT GETS WORSE AFTER EATING. REFUSED PAIN MEDS FOR NOW. HE SAID THAT DR. ALDANA ASSURED HIM LAST NIGHT THAT IT WAS JUST BECAUSE OF HIS STOMACH GETTING USED TO FOOD AGAIN. VERBALIZED UNDERSTANDING OF PLAN OF CARE. SAFETY CHECKS DONE. CALL LIGHT WITHIN REACH.
--- NOTE | 2022-05-12 08:30 | NUR ---
MED PASS PATIENT UNDERSTOOD USE OF MEDS.
[2022-05-12] MEDS: BACLOFEN 10 MG TABLET PO SCH ×2 (08:39→15:11)
[2022-05-12] MEDS ORDERED: LOSARTAN POTASSIUM 50 MG TABLET (COZAAR) PO SCH (09:00)
[2022-05-12] MEDS ORDERED: POTASSIUM CHLORIDE 20 MEQ TAB.PRT.SR PO ONE (10:00)
--- NOTE | 2022-05-12 10:00 | NUR ---
MD ROUNDS DR. GASPAR MADE ROUNDS. GAVE ORDERS FOR POTASSIUM REPLACEMENTS. HE DISCUSSED DISCHARGE PLAN/INSTRUCTION TO PATIENT.
[2022-05-12 12:00] VITALS: BP_SYST 124
--- NOTE | 2022-05-12 12:00 | NUR ---
ROUNDS PATIENT SAID THAT HIS WON'T BE ABLE TO PICK HIM UP UNTIL AFTER WORK AT 1700. NO SHORTNESS OF BREATH OR PAIN. NEEDS ATTENDED.
--- NOTE | 2022-05-12 14:00 | NUR ---
ROUNDS DR. ALDANA GAVE ORDERS FOR DISCHARGE. NEEDS ATTENDED. DENIES SOB OR PAIN.
[2022-05-12 16:00] VITALS: BP_SYST 128
[2022-05-12 17:19] VITALS: BP_SYST 128
== END 2022-05-12 18:30 | disposition home or self-care (01) | DRG 388 ==
LOC: SED 02:22 → STU 07:49 → SMU 05-10 21:31
PROVIDERS: ADMIT Specialist; ATTEND Specialist
PROC: 0D9670Z Drainage of Stomach with Drainage Device, Via Natural or Artificial Opening (ICD-10-PCS; principal; 2022-05-09)
DX: K56.609 Unspecified intestinal obstruction, unspecified as to partial versus complete obstruction (principal); K85.90 Acute pancreatitis without necrosis or infection, unspecified; I10 Essential (primary) hypertension; Z20.822 Contact with and (suspected) exposure to COVID-19; E03.9 Hypothyroidism, unspecified; G89.29 Other chronic pain; M54.9 Dorsalgia, unspecified; Z90.49 Acquired absence of other specified parts of digestive tract
CPT/HCPCS: 36415; 71045; 74021; 74250-TC; 76376; 80053; 81003; 83615; 83690; 85007; 85025; 85027; 96361; 96374; 96375; 99285; G0378; J0696; J0780; J1170; J2270; J2405; J7060; Q9963

== ENCOUNTER 2022-05-16 08:30 | Emergency (ER) | payer BC ==
[~2022-05-16] VITALS: Ht 167.6 cm; Wt 103.4 kg
[2022-05-16 08:44] VITALS: BP_SYST 135
--- NOTE | 2022-05-16 09:10 | NUR ---
MD RODRIGUEZ AT BEDSIDE FOR ASSESS. PT VSS. NAD NOTED. AAOX4. AT BEDSIDE. AWAITING ADDITIONAL ORDERS. WILL CONT TO MONITOR PT.
--- NOTE | 2022-05-16 09:24 | NUR ---
MINDY CHA COLLECTED AND SENT TO LAB.
[2022-05-16] MEDS ORDERED: iohexoL 350 mgI/mL, 100 ML INFUS..BTL IV ONE (09:30)
--- NOTE | 2022-05-16 09:30 | NUR ---
Dr Cote evaluating patient at bedside
--- NOTE | 2022-05-16 09:35 | NUR ---
PT TO CT SCAN. IV 18G TO LEFT AC. CONSENT SIGNED FOR IV CONTRAST. WILL CONT TO MONITOR PT UPON RETURN.
[2022-05-16 09:39] LABS: BASOPHILS # (AUTO) 0.1 K/uL (0.0-0.2); BASOPHILS % (AUTO) 0.4 % (0.0-2.0); EOSINOPHILS # (AUTO) 8.7 K/uL (0.0-0.4); EOSINOPHILS % (AUTO) 59.3 % (0.0-4.0); HEMATOCRIT 45.8 % (36-54); HEMOGLOBIN 15.4 g/dL (14.0-18.0); LYMPHOCYTES # (AUTO) 1.4 K/uL (1.0-5.5); LYMPHOCYTES % (AUTO) 9.7 % (20.5-51.5); MEAN CORPUSCULAR HEMOGLOBIN 31 pg (27-31); MEAN CORPUSCULAR HGB CONC 34 % (32-36); MEAN CORPUSCULAR VOLUME 93 fL (79.0-98.0); MONOCYTES # (AUTO) 0.5 K/uL (0.0-1.0); MONOCYTES % (AUTO) 3.7 % (1.7-9.3); NEUTROPHILS # (AUTO) 3.9 K/uL (1.8-7.7); PLATELET COUNT (AUTO) 244 K/uL (130-430); RED BLOOD CELL COUNT(AUTO) 4.95 MIL/uL (4.2-6.2); RED CELL DISTRIBUTION WIDTH 15.6 % (9.0-15.0); WHITE BLOOD COUNT (AUTO) 14.6 K/uL (4.8-10.8)
[2022-05-16 09:53] LABS: BILIRUBIN,URINE 1+ (NEGATIVE); BLOOD, URINE NEGATIVE (NEGATIVE); CLARITY/URINE CLEAR (CLEAR); COLOR,URINE YELLOW (YELLOW); GLUCOSE,URINE NEGATIVE (NEGATIVE); KETONES,URINE NEGATIVE (NEGATIVE); LEUKOCYTE ESTERASE ,URINE NEGATIVE (NEGATIVE); NITRITE, URINE NEGATIVE (NEGATIVE); PROTEIN URINE 1+ (NEGATIVE); UROBILINOGEN,URINE 0.2 (0.2-1.0)
[2022-05-16 10:12] LABS: BACTERIA,URINE None Seen /HPF (None Seen); RBC,URINE 0-3 /HPF (0-3); WBC,URINE 0-3 /HPF (0-3)
[2022-05-16 10:41] LABS: ANION GAP 8 (5-15); CALCIUM 8.2 mg/dL (8.4-11.0); CHLORIDE 104 mmol/L (98-107); CREATININE 1.08 mg/dL (0.55-1.30); GLUCOSE 94 mg/dL (70-99); NEUTROPHILS % (AUTO) 26.9 % (40.0-70.0); UREA NITROGEN, BLOOD 7 mg/dL (8-21)
[2022-05-16 10:51] LABS: GFR AFRICAN AMERICAN 92 mL/min (>90)
[2022-05-16 10:55] LABS: ALANINE AMINOTRANSFERASE 25 U/L (12-78); ASPARTATE AMINOTRANSFERASE 25 U/L (10-37); LIPASE 1778 U/L (73-393); TOTAL BILIRUBIN 0.5 mg/dL (0.0-1.0)
[2022-05-16] MEDS ORDERED: DICY10CA13 PO (14:14)
[2022-05-16] MEDS ORDERED: LOPE2CAP PO (14:14)
--- NOTE | 2022-05-16 14:27 | NUR ---
Patient given written and verbal discharge instructions and verbalizes understanding. ER MD discussed with patient the results and treatment provided. Patient in stable condition. ID arm band removed. Rx of Dicyclomine and Imodium given. Patient educated on pain management and to follow up with PMD. Pain Scale 2/10. Opportunity for questions provided and answered. Medication side effect fact sheet provided.
[2022-05-16 14:28] VITALS: BP_SYST 134
== END 2022-05-16 14:28 | disposition home or self-care (01) ==
LOC: SED 08:30
DX: K85.90 Acute pancreatitis without necrosis or infection, unspecified (principal); R10.9 Unspecified abdominal pain; R19.7 Diarrhea, unspecified; R06.02 Shortness of breath; D72.829 Elevated white blood cell count, unspecified; E34.0 Carcinoid syndrome; I10 Essential (primary) hypertension; Z79.899 Other long term (current) drug therapy; Z20.822 Contact with and (suspected) exposure to COVID-19
CPT/HCPCS: 99285; 71275; 71045; 87426; 80053; 81000; 83880; 83690; 85025; 87040; 84484; 36415; 93005; 74176; 83605; 76376; Q9967

== ENCOUNTER 2022-12-13 22:48 | Emergency (ER) | payer BC ==
[~2022-12-13] VITALS: Ht 167.6 cm; Wt 95.3 kg
[~2022-12-13 22:48] MED LIST changes: +LOPE2CAP PO
[2022-12-13 23:08] VITALS: BP_SYST 135; PULSE 80; RESP 18; TEMP 98.1; O2SAT 98
[2022-12-14 00:55] VITALS: BP_SYST 126; PULSE 78; RESP 20; O2SAT 97
[2022-12-14 01:49] LABS: COLOR,URINE YELLOW (YELLOW)
[2022-12-14 01:50] LABS: BILIRUBIN,URINE NEGATIVE (NEGATIVE); BLOOD, URINE 2+ (NEGATIVE); CLARITY/URINE CLEAR (CLEAR); GLUCOSE,URINE NEGATIVE (NEGATIVE); KETONES,URINE NEGATIVE (NEGATIVE); LEUKOCYTE ESTERASE ,URINE 1+ (NEGATIVE); PH,URINE 5.5 (5.0-8.0); PROTEIN URINE 1+ (NEGATIVE)
[2022-12-14 01:51] LABS: NITRITE, URINE POSITIVE (NEGATIVE); UROBILINOGEN,URINE 0.2 (0.2-1.0)
[2022-12-14 02:00] LABS: BACTERIA,URINE MODERATE /HPF (None Seen)
[2022-12-14] MEDS ORDERED: SULF1TAB48 PO (04:29)
== END 2022-12-14 00:55 | disposition home or self-care (01) ==
LOC: SED 22:48
DX: T83.091A Other mechanical complication of indwelling urethral catheter, initial encounter (principal); N39.0 Urinary tract infection, site not specified; R33.9 Retention of urine, unspecified; I10 Essential (primary) hypertension; Z79.899 Other long term (current) drug therapy
CPT/HCPCS: 81000; 87086; 99283

== ENCOUNTER 2023-05-02 06:54 | Day surgery (SDC) | payer BC ==
[~2023-05-02] VITALS: Ht 167.6 cm; Wt 97.5 kg
[~2023-05-02 06:54] MED LIST changes: +DICY-14 PO; -DICY10CA13 PO; +LOSA-413 PO; -LOSA50TA3 PO; +SULF1TAB48 PO
[2023-05-02] MEDS ORDERED: MEPERIDINE 100 MG INJ. 100 MG/ML VIAL ONE (07:13)
[2023-05-02] MEDS ORDERED: MIDAZOLAM HCL 5 MG/5 ML VIAL ONE (07:13)
[2023-05-02 14:24] VITALS: BP_SYST 145; PULSE 68; RESP 16; TEMP 97.6; O2SAT 97
== END 2023-05-02 09:55 | disposition home or self-care (01) ==
LOC: SMU 06:54 → SDS 06:54
PROVIDERS: ATTEND Internal Medicine Gastroenterology
DX: R19.4 Change in bowel habit (principal); K62.6 Ulcer of anus and rectum; K64.8 Other hemorrhoids; E78.5 Hyperlipidemia, unspecified; G62.9 Polyneuropathy, unspecified; I10 Essential (primary) hypertension; Z86.010 Personal history of colon polyps; Z90.49 Acquired absence of other specified parts of digestive tract; Z79.899 Other long term (current) drug therapy
CPT/HCPCS: 45380; 99152; 88305; G0378; J2250; J2175

== ENCOUNTER 2023-05-14 23:36 | Emergency (ER) | payer BC ==
[~2023-05-14] VITALS: Ht 167.6 cm; Wt 106.6 kg
[2023-05-15 00:02] VITALS: BP_SYST 140; PULSE 76; RESP 17; TEMP 98; O2SAT 95
[2023-05-15 02:24] LABS: BASOPHILS # (AUTO) 0.1 K/uL (0.0-0.2); BASOPHILS % (AUTO) 0.8 % (0.0-2.0); EOSINOPHILS # (AUTO) 1.6 K/uL (0.0-0.4); EOSINOPHILS % (AUTO) 18.8 % (0.0-4.0); HEMATOCRIT 38.1 % (36-54); HEMOGLOBIN 12.7 g/dL (14.0-18.0); LYMPHOCYTES # (AUTO) 2.6 K/uL (1.0-5.5); LYMPHOCYTES % (AUTO) 30.3 % (20.5-51.5); MEAN CORPUSCULAR HEMOGLOBIN 26 pg (27-31); MEAN CORPUSCULAR HGB CONC 33 % (32-36); MEAN CORPUSCULAR VOLUME 79 fL (79.0-98.0); MONOCYTES # (AUTO) 0.7 K/uL (0.0-1.0); MONOCYTES % (AUTO) 8.1 % (1.7-9.3); NEUTROPHILS # (AUTO) 3.6 K/uL (1.8-7.7); PLATELET COUNT (AUTO) 214 K/uL (130-430); RED BLOOD CELL COUNT(AUTO) 4.84 MIL/uL (4.2-6.2); RED CELL DISTRIBUTION WIDTH 17.4 % (9.0-15.0); WHITE BLOOD COUNT (AUTO) 8.5 K/uL (4.8-10.8)
[2023-05-15 03:06] LABS: ANION GAP 10 (5-15); CALCIUM 9.1 mg/dL (8.4-11.0); CARBON DIOXIDE 29 mmol/L (23-29); CHLORIDE 101 mmol/L (98-107); CREATININE 1.08 mg/dL (0.55-1.30); GFR AFRICAN AMERICAN 92 mL/min (>90); GLUCOSE 99 mg/dL (74-106); POTASSIUM 4.2 mmol/L (3.5-5.1); SODIUM SERUM 140 mmol/L (136-145); UREA NITROGEN, BLOOD 14 mg/dL (8-21)
[2023-05-15 03:13] LABS: ALANINE AMINOTRANSFERASE 47 U/L (12-78); ALBUMIN 3.8 g/dL (3.4-4.8); ASPARTATE AMINOTRANSFERASE 29 U/L (10-37); TOTAL BILIRUBIN 0.4 mg/dL (0.0-1.0); TOTAL PROTEIN, SERUM 7.6 g/dL (6.4-8.3)
[2023-05-15 03:30] LABS: GFR NON AFRICAN-AMERICAN 76 mL/min (>90)
[2023-05-15] MEDS ORDERED: iohexoL 350 mgI/mL, 100 ML INFUS..BTL IV ONE (05:16)
[2023-05-15 08:42] VITALS: BP_SYST 138; PULSE 59; RESP 16; TEMP 96.7; O2SAT 97
== END 2023-05-15 08:42 | disposition home or self-care (01) ==
LOC: SED 23:36
DX: R07.9 Chest pain, unspecified (principal); I10 Essential (primary) hypertension; Z79.899 Other long term (current) drug therapy
CPT/HCPCS: 99285; 80053; 83880; 85025; 85379; 84484; 36415; 71275; 71045; 76376; Q9967

== ENCOUNTER 2023-06-08 09:13 | Inpatient (IN) | payer BC ==
[~2023-06-08] VITALS: Ht 167.6 cm; Wt 102.1 kg
[2023-06-08 09:15] VITALS: BP_SYST 139; PULSE 80; RESP 20; TEMP 98.1; O2SAT 98
[2023-06-08 10:32] LABS: BASOPHILS # (AUTO) 0.1 K/uL (0.0-0.2); BASOPHILS % (AUTO) 0.3 % (0.0-2.0); EOSINOPHILS # (AUTO) 7.8 K/uL (0.0-0.4); EOSINOPHILS % (AUTO) 31.1 % (0.0-4.0); HEMATOCRIT 40.5 % (36-54); HEMOGLOBIN 13.3 g/dL (14.0-18.0); LYMPHOCYTES # (AUTO) 0.9 K/uL (1.0-5.5); LYMPHOCYTES % (AUTO) 3.8 % (20.5-51.5); MEAN CORPUSCULAR HEMOGLOBIN 27 pg (27-31); MEAN CORPUSCULAR HGB CONC 33 % (32-36); MEAN CORPUSCULAR VOLUME 81 fL (79.0-98.0); MONOCYTES # (AUTO) 1.3 K/uL (0.0-1.0); MONOCYTES % (AUTO) 5.1 % (1.7-9.3); NEUTROPHILS % (AUTO) 59.7 % (40.0-70.0); PLATELET COUNT (AUTO) 230 K/uL (130-430); RED BLOOD CELL COUNT(AUTO) 5.01 MIL/uL (4.2-6.2); RED CELL DISTRIBUTION WIDTH 18.8 % (9.0-15.0); WHITE BLOOD COUNT (AUTO) 25.1 K/uL (4.8-10.8)
[2023-06-08 10:43] LABS: CALCIUM 8.8 mg/dL (8.4-11.0); CREATININE 0.97 mg/dL (0.55-1.30); POTASSIUM 4.4 mmol/L (3.5-5.1)
[2023-06-08 10:49] LABS: ALBUMIN 3.6 g/dL (3.4-4.8); BILIRUBIN,DIRECT 0.2 mg/dL (0.0-0.3); TOTAL BILIRUBIN 0.5 mg/dL (0.0-1.0); TOTAL PROTEIN, SERUM 7.3 g/dL (6.4-8.3)
[2023-06-08 11:12] LABS: INR 1.2 (0.80-1.20); PROTHROMBIN TIME 11.9 SECS (9.5-12.5)
[2023-06-08 11:38] LABS: BILIRUBIN,URINE NEGATIVE (NEGATIVE); BLOOD, URINE NEGATIVE (NEGATIVE); CLARITY/URINE SL CLOUDY (CLEAR); COLOR,URINE YELLOW (YELLOW); GLUCOSE,URINE NEGATIVE (NEGATIVE); KETONES,URINE NEGATIVE (NEGATIVE); LEUKOCYTE ESTERASE ,URINE NEGATIVE (NEGATIVE); NITRITE, URINE POSITIVE (NEGATIVE); PROTEIN URINE NEGATIVE (NEGATIVE)
[2023-06-08] MEDS ORDERED: PIPERACILLIN/TAZOBACTAM 3.375 GM/VIAL (ZOSYN) IV ONE (11:40)
[2023-06-08] MEDS: PIPERACILLIN/TAZO 3.375 GM in D5W 50 ML IV ONE (11:49)
[2023-06-08 12:02] LABS: ALANINE AMINOTRANSFERASE 22 U/L (12-78); ALBUMIN 3.5 g/dL (3.4-4.8); ASPARTATE AMINOTRANSFERASE 26 U/L (10-37); BILIRUBIN,DIRECT 0.2 mg/dL (0.0-0.3); TOTAL BILIRUBIN 0.5 mg/dL (0.0-1.0); TOTAL PROTEIN, SERUM 7.1 g/dL (6.4-8.3)
[2023-06-08 12:09] LABS: BACTERIA,URINE MANY /HPF (None Seen); RBC,URINE 0-3 /HPF (0-3)
[2023-06-08] MEDS ORDERED: HYDROcodone/ACETAMIN 5-325 MG TAB (NORCO/ VICODIN) PO PRN (13:00)
[2023-06-08] MEDS ORDERED: ACETAMINOPHEN 325 MG TABLET PO PRN (13:15)
[2023-06-08] MEDS: NACL 0.9% 1,000 ML IV SCH (14:09)
[2023-06-08] MEDS: MORPHINE 2 MG/ML INJ. SYRINGE IVP PRN (14:10)
[2023-06-08] MEDS: HYDROcodone/ACETAMIN 10-325 MG TAB PO PRN (17:27)
[2023-06-08 23:30] VITALS: BP_SYST 115; PULSE 70; RESP 18; TEMP 98
[2023-06-09 06:08] LABS: HEMOGLOBIN 11.8 g/dL (14.0-18.0); MEAN CORPUSCULAR HEMOGLOBIN 27 pg (27-31); MEAN CORPUSCULAR HGB CONC 33 % (32-36); MEAN CORPUSCULAR VOLUME 81 fL (79.0-98.0); PLATELET COUNT (AUTO) 193 K/uL (130-430); RED BLOOD CELL COUNT(AUTO) 4.44 MIL/uL (4.2-6.2); RED CELL DISTRIBUTION WIDTH 19.1 % (9.0-15.0)
[2023-06-09 06:21] VITALS: BP_SYST 124; PULSE 69; RESP 16; TEMP 97.8; O2SAT 97
[2023-06-09 06:46] LABS: ALBUMIN 2.9 g/dL (3.4-4.8); CALCIUM 7.9 mg/dL (8.4-11.0); CREATININE 0.82 mg/dL (0.55-1.30); POTASSIUM 3.7 mmol/L (3.5-5.1); TOTAL PROTEIN, SERUM 6.2 g/dL (6.4-8.3)
[2023-06-09 07:15] LABS: WHITE BLOOD COUNT (AUTO) 15.1 K/uL (4.8-10.8)
[2023-06-09] MEDS: LEVOTHYROXINE SODIUM 0.05 MG TABLET PO SCH (07:30)
[2023-06-09 08:48] LABS: ATYPICAL LYMPHOCYTES % 2 % (0-0); BAND % (MANUAL) 0 % (0-6); LYMPHOCYTES % (MANUAL) 14 % (20-46)
[2023-06-09 08:49] LABS: BASOPHILS % (MANUAL) 0 % (0-2); EOSINOPHILS % (MANUAL) 36 % (0-7); MONOCYTES % (MANUAL) 6 % (0-11); PLATELET ESTIMATE ADEQUATE (ADEQUATE); SMUDGE CELLS FEW; WBC MORPHOLOGY TOXIC VACUOLATION
[2023-06-09 08:50] LABS: HYPOCHROMASIA 1+
[2023-06-09] MEDS: LOSARTAN POTASSIUM 50 MG TABLET (COZAAR) PO SCH (09:00)
[2023-06-09] MEDS ORDERED: LEVO200T PO (09:40)
[2023-06-09] MEDS ORDERED: DOCU-144 PO (09:41)
[2023-06-09] MEDS ORDERED: LACTULOSE 20 GM/30 ML UDC PO ONE (10:15)
[2023-06-09] MEDS ORDERED: LEVO50TA8 PO (10:55)
[2023-06-09 11:33] VITALS: BP_SYST 135; PULSE 63; RESP 16; TEMP 98; O2SAT 95
[2023-06-09] MEDS ORDERED: LEVOTHYROXINE SODIUM 200 MCG PO SCH (13:30)
[2023-06-09] MEDS ORDERED: LEVO100T9 PO (14:02)
[2023-06-09] MEDS: MAGNESIUM CITRATE 300 ML ORAL SOLUTION PO ONE (14:53)
[2023-06-09 15:34] VITALS: BP_SYST 139; PULSE 64; RESP 18; TEMP 98.3; O2SAT 96
[2023-06-09] MEDS: CEFEPIME 2 GM in D5W 100 ML IV SCH (17:54)
[2023-06-09 20:13] VITALS: BP_SYST 141; PULSE 67; RESP 20; TEMP 97.2; O2SAT 97
[2023-06-09 20:30] VITALS: O2SAT 98
[2023-06-09] MEDS: DOCUSATE SODIUM 100 MG CAPSULE PO SCH (21:37)
[2023-06-09] MEDS: POLYETHYLENE GLYCOL 3350, 17 GM/ POWD.PACK PO SCH (21:37)
[2023-06-10 00:36] VITALS: RESP 20; TEMP 97.2; O2SAT 98
[2023-06-10] MEDS: ACETAMINOPHEN 325 MG TABLET PO PRN (03:27)
[2023-06-10 05:34] LABS: HEMATOCRIT 35.8 % (36-54); MEAN CORPUSCULAR HEMOGLOBIN 27 pg (27-31); MEAN CORPUSCULAR HGB CONC 34 % (32-36); MEAN CORPUSCULAR VOLUME 81 fL (79.0-98.0); PLATELET COUNT (AUTO) 206 K/uL (130-430); RED BLOOD CELL COUNT(AUTO) 4.44 MIL/uL (4.2-6.2); RED CELL DISTRIBUTION WIDTH 18.9 % (9.0-15.0); WHITE BLOOD COUNT (AUTO) 10.5 K/uL (4.8-10.8)
[2023-06-10 06:02] LABS: CALCIUM 8.2 mg/dL (8.4-11.0); CREATININE 0.88 mg/dL (0.55-1.30); TOTAL BILIRUBIN 0.6 mg/dL (0.0-1.0); TOTAL PROTEIN, SERUM 6.5 g/dL (6.4-8.3)
[2023-06-10 06:30] LABS: ATYPICAL LYMPHOCYTES % 0 % (0-0); BAND % (MANUAL) 0 % (0-6); LYMPHOCYTES % (MANUAL) 18 % (20-46)
[2023-06-10 06:31] LABS: ANISOCYTOSIS 1+; BASOPHILS % (MANUAL) 0 % (0-2); EOSINOPHILS % (MANUAL) 30 % (0-7); HYPOCHROMASIA 1+; MONOCYTES % (MANUAL) 6 % (0-11); PLATELET ESTIMATE ADEQUATE (ADEQUATE)
[2023-06-10] MEDS: LEVOTHYROXINE SODIUM 0.1 MG TABLET PO SCH (06:43)
[2023-06-10 08:00] VITALS: BP_SYST 137; PULSE 57; RESP 18; TEMP 97.8; O2SAT 98
[2023-06-10] MEDS ORDERED: LACTULOSE 20 GM/30 ML UDC PO SCH (09:00)
[2023-06-10 12:00] VITALS: BP_SYST 133; PULSE 53; RESP 18; TEMP 97.9; O2SAT 98
[2023-06-10 14:57] LABS: BASOPHILS % (AUTO) 0.5 % (0.0-2.0); EOSINOPHILS # (AUTO) 3.8 K/uL (0.0-0.4); EOSINOPHILS % (AUTO) 40.6 % (0.0-4.0); HEMATOCRIT 35.7 % (36-54); HEMOGLOBIN 12.2 g/dL (14.0-18.0); LYMPHOCYTES # (AUTO) 1.3 K/uL (1.0-5.5); LYMPHOCYTES % (AUTO) 14.3 % (20.5-51.5); MEAN CORPUSCULAR HEMOGLOBIN 27 pg (27-31); MEAN CORPUSCULAR HGB CONC 34 % (32-36); MEAN CORPUSCULAR VOLUME 80 fL (79.0-98.0); MONOCYTES # (AUTO) 0.6 K/uL (0.0-1.0); NEUTROPHILS # (AUTO) 3.6 K/uL (1.8-7.7); PLATELET COUNT (AUTO) 206 K/uL (130-430); RED BLOOD CELL COUNT(AUTO) 4.44 MIL/uL (4.2-6.2); RED CELL DISTRIBUTION WIDTH 19.4 % (9.0-15.0); WHITE BLOOD COUNT (AUTO) 9.3 K/uL (4.8-10.8)
[2023-06-10 15:00] LABS: NEUTROPHILS % (AUTO) 38.6 % (40.0-70.0)
[2023-06-10 15:29] LABS: ALBUMIN 3.1 g/dL (3.4-4.8); CALCIUM 8.4 mg/dL (8.4-11.0); CREATININE 0.86 mg/dL (0.55-1.30); POTASSIUM 3.9 mmol/L (3.5-5.1); TOTAL BILIRUBIN 0.4 mg/dL (0.0-1.0); TOTAL PROTEIN, SERUM 6.7 g/dL (6.4-8.3)
[2023-06-10 16:00] VITALS: BP_SYST 135; PULSE 54; RESP 18; TEMP 97.8; O2SAT 98
[2023-06-10 19:00] VITALS: BP_SYST 132; PULSE 83; RESP 18; TEMP 97.7; O2SAT 99
[2023-06-10 20:00] VITALS: BP_SYST 132; PULSE 86; RESP 18; TEMP 97.7
[2023-06-11] VITALS (7 sets, daily range): BP systolic 120–146; PULSE 59–86; RESP 16–18; TEMP 96.3–98.2; O2SAT 96–99
[2023-06-11] MEDS: DOCUSATE SODIUM 100 MG CAPSULE PO ONE (09:55)
[2023-06-12] VITALS (7 sets, daily range): BP systolic 124–136; PULSE 61–82; RESP 16–18; TEMP 96.7–97.6; O2SAT 95–98
[2023-06-12] MEDS: ONDANSETRON HCL 4 MG/2 ML VIAL IVP PRN (03:01)
[2023-06-12 07:27] LABS: BASOPHILS # (AUTO) 0.1 K/uL (0.0-0.2); BASOPHILS % (AUTO) 0.3 % (0.0-2.0); EOSINOPHILS # (AUTO) 5.2 K/uL (0.0-0.4); EOSINOPHILS % (AUTO) 30.4 % (0.0-4.0); HEMATOCRIT 42.4 % (36-54); HEMOGLOBIN 14.2 g/dL (14.0-18.0); LYMPHOCYTES # (AUTO) 1.3 K/uL (1.0-5.5); LYMPHOCYTES % (AUTO) 7.5 % (20.5-51.5); MEAN CORPUSCULAR HEMOGLOBIN 27 pg (27-31); MEAN CORPUSCULAR HGB CONC 33 % (32-36); MEAN CORPUSCULAR VOLUME 81 fL (79.0-98.0); MONOCYTES # (AUTO) 0.5 K/uL (0.0-1.0); MONOCYTES % (AUTO) 2.7 % (1.7-9.3); NEUTROPHILS # (AUTO) 10.2 K/uL (1.8-7.7); NEUTROPHILS % (AUTO) 59.1 % (40.0-70.0); PLATELET COUNT (AUTO) 243 K/uL (130-430); RED BLOOD CELL COUNT(AUTO) 5.22 MIL/uL (4.2-6.2); RED CELL DISTRIBUTION WIDTH 19.8 % (9.0-15.0); WHITE BLOOD COUNT (AUTO) 17.2 K/uL (4.8-10.8)
[2023-06-12 07:49] LABS: ALBUMIN 3.4 g/dL (3.4-4.8); CALCIUM 8.9 mg/dL (8.4-11.0); CREATININE 0.75 mg/dL (0.55-1.30); POTASSIUM 3.5 mmol/L (3.5-5.1); TOTAL BILIRUBIN 0.6 mg/dL (0.0-1.0); TOTAL PROTEIN, SERUM 7.1 g/dL (6.4-8.3)
[2023-06-12] MEDS ORDERED: DOCUSATE SODIUM 100 MG CAPSULE PO SCH (09:00)
[2023-06-12] MEDS: PANTOPRAZOLE SODIUM 40 MG/VIAL (PROTONIX) IVP SCH (09:59)
[2023-06-12 11:15] LABS: BILIRUBIN,URINE NEGATIVE (NEGATIVE); COLOR,URINE YELLOW (YELLOW); GLUCOSE,URINE NEGATIVE (NEGATIVE); KETONES,URINE 2+ (NEGATIVE); LEUKOCYTE ESTERASE ,URINE NEGATIVE (NEGATIVE); NITRITE, URINE NEGATIVE (NEGATIVE); PROTEIN URINE NEGATIVE (NEGATIVE)
[2023-06-12] MEDS ORDERED: LACTULOSE 20 GM/30 ML UDC PO PRN (11:15)
[2023-06-12 11:28] LABS: BLOOD, URINE TRACE (NEGATIVE); CLARITY/URINE SLIGHTLY HAZY (CLEAR)
[2023-06-12 11:38] LABS: BACTERIA,URINE FEW /HPF (None Seen); MUCUS,URINE 1+ /LPF (None Seen); RBC,URINE 0-3 /HPF (0-3); WBC,URINE 0-3 /HPF (0-3)
[2023-06-12 14:59] LABS: CHOLESTEROL 128 mg/dL (<200); HDL CHOLESTEROL 30 mg/dL (>45); TRIGLYCERIDES 98 mg/dL (30-150)
[2023-06-13 05:26] LABS: BASOPHILS % (AUTO) 0.2 % (0.0-2.0); EOSINOPHILS # (AUTO) 3.6 K/uL (0.0-0.4); EOSINOPHILS % (AUTO) 34.3 % (0.0-4.0); HEMATOCRIT 38.4 % (36-54); HEMOGLOBIN 12.9 g/dL (14.0-18.0); LYMPHOCYTES # (AUTO) 1.5 K/uL (1.0-5.5); LYMPHOCYTES % (AUTO) 13.8 % (20.5-51.5); MEAN CORPUSCULAR HEMOGLOBIN 27 pg (27-31); MEAN CORPUSCULAR HGB CONC 34 % (32-36); MEAN CORPUSCULAR VOLUME 80 fL (79.0-98.0); MONOCYTES # (AUTO) 0.5 K/uL (0.0-1.0); MONOCYTES % (AUTO) 4.6 % (1.7-9.3); PLATELET COUNT (AUTO) 228 K/uL (130-430); RED BLOOD CELL COUNT(AUTO) 4.77 MIL/uL (4.2-6.2); RED CELL DISTRIBUTION WIDTH 19.6 % (9.0-15.0); WHITE BLOOD COUNT (AUTO) 10.6 K/uL (4.8-10.8)
[2023-06-13 05:47] LABS: ALBUMIN 2.9 g/dL (3.4-4.8); CALCIUM 8.5 mg/dL (8.4-11.0); CREATININE 0.78 mg/dL (0.55-1.30); POTASSIUM 3.7 mmol/L (3.5-5.1); TOTAL BILIRUBIN 0.7 mg/dL (0.0-1.0); TOTAL PROTEIN, SERUM 6.3 g/dL (6.4-8.3)
[2023-06-13 07:35] LABS: NEUTROPHILS % (AUTO) 47.1 % (40.0-70.0)
[2023-06-13 08:34] VITALS: O2SAT 96
[2023-06-13 08:39] VITALS: BP_SYST 141; PULSE 70; RESP 18; TEMP 98.4; O2SAT 96
[2023-06-13 11:22] VITALS: BP_SYST 132; PULSE 68; RESP 16; TEMP 96.4; O2SAT 95
[2023-06-13 15:08] VITALS: BP_SYST 118; PULSE 62; RESP 16; TEMP 97.7; O2SAT 99
[2023-06-13 20:00] VITALS: BP_SYST 111; PULSE 62; RESP 18; TEMP 97.5; O2SAT 97
[2023-06-13 22:48] VITALS: O2SAT 97
[2023-06-14] VITALS: BP_SYST 135; PULSE 72; RESP 18; TEMP 97.2; O2SAT 98
[2023-06-14 06:20] LABS: BASOPHILS # (AUTO) 0.1 K/uL (0.0-0.2); BASOPHILS % (AUTO) 0.5 % (0.0-2.0); EOSINOPHILS # (AUTO) 6.3 K/uL (0.0-0.4); EOSINOPHILS % (AUTO) 51.6 % (0.0-4.0); HEMATOCRIT 38.3 % (36-54); HEMOGLOBIN 12.9 g/dL (14.0-18.0); LYMPHOCYTES # (AUTO) 2.1 K/uL (1.0-5.5); LYMPHOCYTES % (AUTO) 16.9 % (20.5-51.5); MEAN CORPUSCULAR HEMOGLOBIN 27 pg (27-31); MEAN CORPUSCULAR HGB CONC 34 % (32-36); MEAN CORPUSCULAR VOLUME 81 fL (79.0-98.0); MONOCYTES # (AUTO) 0.6 K/uL (0.0-1.0); MONOCYTES % (AUTO) 5.2 % (1.7-9.3); NEUTROPHILS # (AUTO) 3.2 K/uL (1.8-7.7); NEUTROPHILS % (AUTO) 25.8 % (40.0-70.0); PLATELET COUNT (AUTO) 243 K/uL (130-430); RED BLOOD CELL COUNT(AUTO) 4.75 MIL/uL (4.2-6.2); RED CELL DISTRIBUTION WIDTH 19.5 % (9.0-15.0); WHITE BLOOD COUNT (AUTO) 12.3 K/uL (4.8-10.8)
[2023-06-14 06:59] LABS: ALBUMIN 3.2 g/dL (3.4-4.8); CALCIUM 8.6 mg/dL (8.4-11.0); CREATININE 0.75 mg/dL (0.55-1.30); POTASSIUM 3.8 mmol/L (3.5-5.1); TOTAL BILIRUBIN 0.6 mg/dL (0.0-1.0); TOTAL PROTEIN, SERUM 6.8 g/dL (6.4-8.3)
[2023-06-14 08:00] VITALS: O2SAT 97
[2023-06-14 08:14] VITALS: BP_SYST 148; PULSE 71; RESP 17; TEMP 98.1; O2SAT 97
[2023-06-14] MEDS: LACTULOSE 20 GM/30 ML UDC PO SCH (09:32)
[2023-06-14 18:07] VITALS: BP_SYST 135; PULSE 84; RESP 18; TEMP 98; O2SAT 97
[2023-06-14 20:00] VITALS: BP_SYST 132; PULSE 70; RESP 17; TEMP 97.5; O2SAT 98
[2023-06-14 22:00] VITALS: O2SAT 98
[2023-06-15] VITALS (7 sets, daily range): BP systolic 121–150; PULSE 55–108; RESP 16–18; TEMP 95.8–98; O2SAT 90–100
[2023-06-15 06:17] LABS: BASOPHILS # (AUTO) 0.1 K/uL (0.0-0.2); BASOPHILS % (AUTO) 0.5 % (0.0-2.0); EOSINOPHILS # (AUTO) 6.8 K/uL (0.0-0.4); EOSINOPHILS % (AUTO) 55.3 % (0.0-4.0); HEMATOCRIT 35.8 % (36-54); HEMOGLOBIN 12.1 g/dL (14.0-18.0); LYMPHOCYTES # (AUTO) 2.1 K/uL (1.0-5.5); LYMPHOCYTES % (AUTO) 17.3 % (20.5-51.5); MEAN CORPUSCULAR HEMOGLOBIN 27 pg (27-31); MEAN CORPUSCULAR HGB CONC 34 % (32-36); MEAN CORPUSCULAR VOLUME 81 fL (79.0-98.0); MONOCYTES # (AUTO) 0.5 K/uL (0.0-1.0); MONOCYTES % (AUTO) 4.2 % (1.7-9.3); NEUTROPHILS # (AUTO) 2.8 K/uL (1.8-7.7); NEUTROPHILS % (AUTO) 22.7 % (40.0-70.0); PLATELET COUNT (AUTO) 250 K/uL (130-430); RED BLOOD CELL COUNT(AUTO) 4.44 MIL/uL (4.2-6.2); RED CELL DISTRIBUTION WIDTH 19.7 % (9.0-15.0); WHITE BLOOD COUNT (AUTO) 12.2 K/uL (4.8-10.8)
[2023-06-15 06:48] LABS: CALCIUM 8.6 mg/dL (8.4-11.0); CREATININE 0.79 mg/dL (0.55-1.30); POTASSIUM 3.8 mmol/L (3.5-5.1); TOTAL BILIRUBIN 0.5 mg/dL (0.0-1.0); TOTAL PROTEIN, SERUM 6.5 g/dL (6.4-8.3)
[2023-06-15] MEDS ORDERED: LEVO-62 PO (11:52)
[2023-06-15] MEDS ORDERED: PRO40 PO (11:52)
[2023-06-15] MEDS ORDERED: LACT10PA5 PO (11:55)
== END 2023-06-15 18:15 | disposition home or self-care (01) | DRG 698 ==
LOC: SED 09:13 → SMU 13:00
PROVIDERS: ADMIT Family Medicine; ATTEND Family Medicine
DX: T83.518A Infection and inflammatory reaction due to other urinary catheter, initial encounter (principal); K85.90 Acute pancreatitis without necrosis or infection, unspecified; K56.7 Ileus, unspecified; N39.0 Urinary tract infection, site not specified; I10 Essential (primary) hypertension; K59.09 Other constipation; E03.9 Hypothyroidism, unspecified; Z79.891 Long term (current) use of opiate analgesic; Z79.899 Other long term (current) drug therapy; Z90.49 Acquired absence of other specified parts of digestive tract
CPT/HCPCS: 36415; 71045; 80048; 80053; 80061; 80076; 81000; 81001; 81015; 82150; 82787; 83605; 83690; 84484; 85007; 85025; 85027; 85610; 85730; 86038; 87040; 87081; 87086; 87230; 93005; 99291; C9113; J0692; J1956; J2270; J2405; J2543; J7060; Q9967

== ENCOUNTER 2023-12-07 07:22 | Day surgery (SDC) | payer BC ==
[~2023-12-07] VITALS: Ht 167.6 cm; Wt 96.2 kg
[~2023-12-07 07:22] MED LIST changes: -BACL10TA PO; -DICL75TA5 PO; -DICY-14 PO; +DOCU-144 PO; -HYDR-3917 PO; +LACT10PA5 PO; +LEVO-62 PO; +LEVO100T9 PO; -LIDOINT TP; -LOPE2CAP PO; -NEU300 PO; -OMEP20TA20 PO; -PRED20TA PO; +PRO40 PO; -SULF1TAB48 PO; -SYN50 PO
[2023-12-07] MEDS ORDERED: MIDAZOLAM HCL 5 MG/5 ML VIAL ONE (10:07)
[2023-12-07] MEDS ORDERED: MEPERIDINE 100 MG INJ. 100 MG/ML VIAL ONE (10:07)
[2023-12-07 11:49] VITALS: O2SAT 95
[2023-12-07 17:24] VITALS: BP_SYST 145; PULSE 61; RESP 18
== END 2023-12-07 12:00 | disposition home or self-care (01) ==
LOC: SDS 07:22 → SMU 07:22 → SDS 12:00
PROVIDERS: ATTEND Internal Medicine Gastroenterology
DX: K31.7 Polyp of stomach and duodenum (principal); K29.50 Unspecified chronic gastritis without bleeding; D3A.092 Benign carcinoid tumor of the stomach; K31.A0 Gastric intestinal metaplasia, unspecified; E61.1 Iron deficiency; I10 Essential (primary) hypertension; E78.5 Hyperlipidemia, unspecified; E03.9 Hypothyroidism, unspecified; Z79.890 Hormone replacement therapy; Z79.899 Other long term (current) drug therapy; Z90.49 Acquired absence of other specified parts of digestive tract; Z86.010 Personal history of colon polyps
CPT/HCPCS: 43251; 99152; 88305; 88361; 99153; 43236; 43239; 88341; 88342; G0378; J2250; J2175; C1889; 43255; 88312; 88313